=== PATIENT | female | born 1935 | race Caucasian/White ===

== ENCOUNTER 2020-11-22 19:18 | Inpatient (IN) | payer MEDICARE ==
[2020-11-22 19:51] LABS: #Lymphocytes 0.6 thou/uL (1.20-3.40); #Neutrophils 9.7 thou/uL (1.40-6.50); %Eosinophils 0.1 % (0.0-10.0); %Lymphocytes 5.5 % (21.0-51.0); %Monocytes 8.7 % (0.0-10.0); %Neutrophils 85.8 % (42.0-75.0); Hemoglobin 9.8 g/dL (12.0-16.0); Mean Corpuscular HGB CONC 30.9 g/dL (32.0-36.0); Mean Corpuscular Hemoglobin 29.7 pg (27.0-31.0); Mean Platelet Volume 7.3 fL (7.4-10.4); Platelet Count 229 thou/uL (130-400); RBC Distribution Width 14.9 % (11.5-14.5); Red Blood Cell (RBC) Count 3.31 mill/uL (4.20-5.40); White Blood Cell (WBC) Count 11.3 thou/uL (4.8-10.8)
[2020-11-22 20:03] LABS: Actual Bicarbonate (HCO3a) 33.2 mEq/L (22-28); Analyzer IN Cardio ER; Base Excess (BEa) 3.4 mEq/L (-2.0 to +3.0); Calcium, Ionized (arterial) 1.21 mmol/L (1.12-1.30); Carboxyhemoglobin (COHb) 0.4 gm% (0.0-3.0); Hemoglobin (Hb) 10.2 g/dL (12.0-16.0); O2 Tension (PaO2), arterial 90.4 mmHg (> 60.0); Potassium - ABG Lab 6.13 mmol/L (3.70-5.30)
[2020-11-22 20:05] LABS: Puncture Site LBA
--- NOTE | 2020-11-22 20:11 | RAD ---
PORTABLE CHEST: HISTORY: Unresponsive. COMPARISON: None. FINDINGS: Bilateral effusions, larger on the left. Minimal aerated lung in the left apical region. Shift of the mediastinum to the left. Some aerated lung in the right upper lobe. Heart is not adequately evaluate d due to the large left effusion. Dual-lead pacemaker. IMPRESSION: Bilateral effusions, larger on the left, with minimal aerated lung in the left apical region. A small amount of right upper lobe aeration. POS: AGW
[2020-11-22] MEDS ORDERED: Rocuronium Bromide 10 MG/ML (10ML VIAL) ONE (20:21)
[2020-11-22 20:39] LABS: ALT (SGPT) 15 U/L (8-55); AST (SGOT) 24 U/L (5-34); Albumin 3.6 g/dL (3.4-4.8); Alkaline Phosphatase 122 U/L (40-110); Anion Gap 16 mmol/L (10-20); BUN (Urea Nitrogen) 37 mg/dL (9.8-20.1); Bilirubin, Total 1.4 mg/dL (0.2-1.2); Calc. Creatinine Clearance 0 mL/min (70-130); Calcium 9.1 mg/dL (7.8-10.44); Carbon Dioxide 34 mmol/L (23-31); Chloride 87 mmol/L (98-107); Globulin 3.4 g/dL (2.4-3.5); Glucose 248 mg/dL (83-110); Sodium 130 mmol/L (136-145)
[2020-11-22 20:44] LABS: Potassium 6.7 mmol/L (3.5-5.1)
--- NOTE | 2020-11-22 20:55 | RAD ---
Chest one view HISTORY: Chest pain. Intubated. COMPARISON: Earlier exam on the same date. FINDINGS: Cardiac silhouette remains shifted leftward with near complete opacification left hemithora x. Right pleural fluid is unchanged. Tip of an endotracheal catheter projects over the thoracic inlet. Nasogastric tube descends to the ab domen. No evidence of pneumothorax. IMPRESSION : Endotracheal catheter and nasogastric tube are in good radiographic position. Significant atelectasis of the left lung, with slight leftward shift of the mediastinum. Large left a nd moderate right pleural effusions.
[2020-11-22 20:56] LABS: Actual Bicarbonate (HCO3a) 26.5 mEq/L (22-28); Analyzer IN Cardio ER; Base Excess (BEa) 1.9 mEq/L (-2.0 to +3.0); CO2 Tension 41.3 mmHg (35.0-45.0); Calcium, Ionized (arterial) 1.15 mmol/L (1.12-1.30); Carboxyhemoglobin (COHb) 0.5 gm% (0.0-3.0); Hemoglobin (Hb) 9.1 g/dL (12.0-16.0); Potassium - ABG Lab 5.43 mmol/L (3.70-5.30); pH, Arterial 7.43 (7.35-7.45)
[2020-11-22] MEDS ORDERED: Fentanyl CADD 100 ML IV SCH (21:00)
[2020-11-22 21:17] LABS: O2 Tension (PaO2), arterial 48.9 mmHg (> 60.0); Puncture Site RBA
[2020-11-22 21:18] LABS: ALV-art Gradient 255.975 mmHg (0-20)
[2020-11-22] MEDS ORDERED: Dextrose 50% Abboject 50 ML SYRINGE ONE (21:18)
[2020-11-22] MEDS ORDERED: Calcium Chloride 1 GM/10 ML Abboject SYRINGE ONE (21:18)
[2020-11-22] MEDS ORDERED: INSULIN REGULAR IN 0.9 % NACL 100 UNIT/100 ML BAG ONE (21:18)
[2020-11-22] MEDS ORDERED: Sodium Bicarb 50 MEQ/50 ML Abboject 8.4% SYRINGE ONE (21:18)
[2020-11-22] MEDS ORDERED: Insulin Regular 300 UNITS/3 ML VIAL ONE (21:43)
[2020-11-22] MEDS ORDERED: Vancomycin 1 GM/200 ML BAG ONE (22:05)
[2020-11-22] MEDS ORDERED: Cefepime 2 GM VIAL ONE (22:05)
[2020-11-22] MEDS ORDERED: Levofloxacin 500 mg/D5W 100 ml Premix Bag ONE (22:05)
[2020-11-22 22:19] LABS: Bacteria/HPF None Seen HPF (None Seen); Bilirubin Negative (Negative); Blood, Urine Negative (Negative); Clarity Turbid (Clear); Glucose, Urine (Dipstick) Normal (Negative); Ketone, Urine Negative (Negative); Leukocyte 75 Leu/uL (Negative); Nitrite Negative (Negative); Protein, Urine (Dipstick) 70 mg/dL (Neg-Trace); Specific Gravity, Urine 1.019 (1.002-1.036); Squamous Epithelial 0-3 HPF (0-3); Urobilinogen Normal mg/dL (Less than 2)
[2020-11-22 22:31] LABS: RBC/HPF 0-3 HPF (0-3); Yeast-Budding 1+ HPF (None Seen); Yeast-Hyphae None Seen HPF (None Seen)
[2020-11-22 22:46] LABS: SARS-CoV-2 NAA Rapid Test Not Detected (NotDetected)
--- NOTE | 2020-11-22 23:29 | PDOC.HHP ---
Hospitalist HPI Dyspnea History of Present Illness: This is an 85-year-old female patient with a history of CHF, hyperlipidemia, hypertension and A. fib with type 2 diabetes She was brought in from [place] rehab on account of acute respiratory distress. Apparently she was recently hospitalized for CHF and A. fib and was transitioned for rehab when the above event occurred. She was noted to be hypoxic requiring up to 15 L of oxygen. EMS was activated. On arrival she had a pressure of 105/79, respiratory 28, pulse 90 and saturating 95% on nonrebreather. Labs showed leukocytosis of 11.3 with hemoglobin 9.8. Potassium was 6.79 sodium 130. Creatinine was slightly elevated at 1.23. BNP was elevated at 1241. Chest x-ray showed bilateral pleural effusion with left significantly bigger than right. She was started on antibiotics with vancomycin Levaquin and cefepime. Also received 2 L normal saline and hyperkalemia protocol. Patient is mental status generally poor and with worsening respiratory distress decision was made to intubate in the ED. Hospitalist team was consulted for admission. Allergies/Adverse Reactions: Allergy/AdvReac Type Severity Reaction Status Date / Time metformin Allergy Verified 11/22/20 21:35 Home Medications: Medication Instructions Recorded Confirmed Type Atorvastatin Calcium [Lipitor] 40 mg PO DAILY 11/22/20 11/22/20 History Furosemide [Lasix] 20 mg PO DAILY 11/22/20 11/22/20 History Lactobacillus Rhamnosus GG 1 cap PO DAILY 11/22/20 11/22/20 History [Culturelle] Levothyroxine Sodium 75 mcg PO DAILY 11/22/20 11/22/20 History Lidocaine 5% Patch [Lidoderm 5% 1 patch TD DAILY 11/22/20 11/22/20 History Patch] Melatonin 5 mg PO HS 11/22/20 11/22/20 History Metoprolol Tartrate 50 mg PO BID 11/22/20 11/22/20 History Pantoprazole Sodium [Protonix] 40 mg PO DAILY 11/22/20 11/22/20 History Polyethylene Glycol 3350 [Miralax] 17 gm PO DAILY 11/22/20 11/22/20 History Potassium Chloride 10 meq PO DAILY 11/22/20 11/22/20 History Potassium Chloride 20 meq PO BID 11/22/20 11/22/20 History Rivaroxaban [Xarelto] 15 mg PO DAILY 11/22/20 11/22/20 History Past History: PMHx:CHF, hyperlipidemia, hypertension and A. fib with type 2 diabetes PSHx: No information available FHx: No information available Social: No information available Hospitalist HPI ROS ROS unobtainable: due to endotracheal tube Hospitalist Exam General Appearance: ill appearing General - other findings: Intubated, ENT: normocephalic atraumatic Neck: supple, symmetric, no JVD Heart: RRR, no murmur, no gallops, no rubs Respiratory - other findings: Reduced air entry bilaterally, Gastrointestinal: soft, non-tender, non-distended, normal bowel sounds Extremities: no cyanosis, no clubbing, no edema Neurological - other findings: Sedated, no spontaneous movements. Psychiatric - other findings: Unable to obtain Hospitalist Results Result Diagrams: 11/23/20 03:42 11/23/20 03:42 Lab results: Laboratory Last Values WBC 11.3 thou/uL (4.8-10.8) H 11/22/20 19:41 RBC 3.31 mill/uL (4.20-5.40) L 11/22/20 19:41 Hgb 9.8 g/dL (12.0-16.0) L 11/22/20 19:41 Hct 31.8 % (36.0-47.0) L 11/22/20 19:41 MCV 96.0 fL (78.0-98.0) 11/22/20 19:41 MCH 29.7 pg (27.0-31.0) 11/22/20 19:41 MCHC 30.9 g/dL (32.0-36.0) L 11/22/20 19:41 RDW 14.9 % (11.5-14.5) H 11/22/20 19:41 Plt Count 229 thou/uL (130-400) 11/22/20 19:41 MPV 7.3 fL (7.4-10.4) L 11/22/20 19:41 Neutrophils % 85.8 % (42.0-75.0) H 11/22/20 19:41 Lymphocytes % 5.5 % (21.0-51.0) L 11/22/20 19:41 Monocytes % 8.7 % (0.0-10.0) 11/22/20 19:41 Eosinophils % 0.1 % (0.0-10.0) 11/22/20 19:41 Basophils % 0.0 % (0.0-1.0) 11/22/20 19:41 Neutrophils # 9.7 thou/uL (1.40-6.50) H 11/22/20 19:41 Lymphocytes # 0.6 thou/uL (1.20-3.40) L 11/22/20 19:41 Monocytes # 1.0 thou/uL (0.11-0.59) H 11/22/20 19:41 Eosinophils # 0.0 thou/uL (0.0-0.7) 11/22/20 19:41 Basophils # 0.0 thou/uL (0.0-0.2) 11/22/20 19:41 Specimen Type ARTERIAL 11/22/20 20:50 Puncture Site RBA 11/22/20 20:50 Bicarbonate Actual 26.5 mEq/L (22-28) 11/22/20 20:50 ABG pH 7.43 (7.35-7.45) 11/22/20 20:50 ABG pCO2 41.3 mmHg (35.0-45.0) 11/22/20 20:50 ABG pO2 48.9 mmHg (> 60.0) L* 11/22/20 20:50 ABG O2 Sat (Measured) 88.3 % (94.0-98.0) L 11/22/20 20:50 ABG O2 Content 11.2 vol% (18.0-21.0) L 11/22/20 20:50 ABG Base Excess 1.9 mEq/L (-2.0 to +3.0) 11/22/20 20:50 ABG Hematocrit 27.0 % (36.0-47.0) L 11/22/20 20:50 ABG Hemoglobin 9.1 g/dL (12.0-16.0) L 11/22/20 20:50 ABG Oxyhemoglobin 87.2 % (94.0-98.0) L 11/22/20 20:50 ABG Carboxyhemoglobin 0.5 gm% (0.0-3.0) 11/22/20 20:50 ABG Methemoglobin 0.70 gm% (0.04-1.52) 11/22/20 20:50 ABG Deoxyhemoglobin 11.6 % (0.0-2.9) H 11/22/20 20:50 Arnav Test Not Reportable 11/22/20 20:50 A-a O2 Gradient 255.975 mmHg (0-20) H 11/22/20 20:50 Sodium 129 mmol/L (135-148) L 11/22/20 20:50 Potassium 5.43 mmol/L (3.70-5.30) H 11/22/20 20:50 Chloride 93 mmol/L (98-106) L 11/22/20 20:50 Ionized Calcium 1.15 mmol/L (1.12-1.30) 11/22/20 20:50 Mode of Support SIMV 11/22/20 20:50 Mechanical Rate 20 min 11/22/20 20:50 Inspired O2 50 % 11/22/20 20:50 Tidal Volume 450 ml 11/22/20 20:50 Pressure Support 10 cmH2O 11/22/20 20:50 PEEP or CPAP 5.0 cmH2O 11/22/20 20:50 Sodium 130 mmol/L (136-145) L 11/22/20 19:41 Potassium 6.7 mmol/L (3.5-5.1) H* 11/22/20 19:41 Chloride 87 mmol/L (98-107) L 11/22/20 19:41 Carbon Dioxide 34 mmol/L (23-31) H 11/22/20 19:41 Anion Gap 16 mmol/L (10-20) 11/22/20 19:41 BUN 37 mg/dL (9.8-20.1) H 11/22/20 19:41 Creatinine 1.23 mg/dL (0.6-1.1) H 11/22/20 19:41 Estimated GFR (MDRD) 41 11/22/20 19:41 Glucose 248 mg/dL (83-110) H 11/22/20 19:41 Calcium 9.1 mg/dL (7.8-10.44) 11/22/20 19:41 Total Bilirubin 1.4 mg/dL (0.2-1.2) H 11/22/20 19:41 AST 24 U/L (5-34) 11/22/20 19:41 ALT 15 U/L (8-55) 11/22/20 19:41 Alkaline Phosphatase 122 U/L (40-110) H 11/22/20 19:41 Troponin I 0.023 ng/mL (< 0.028) 11/22/20 19:41 B-Natriuretic Peptide 1241.5 pg/mL (0-100) H 11/22/20 19:41 Serum Total Protein 7.0 g/dL (5.8-8.1) 11/22/20 19:41 Albumin 3.6 g/dL (3.4-4.8) 11/22/20 19:41 Globulin 3.4 g/dL (2.4-3.5) 11/22/20 19: Albumin/Globulin Ratio 1.1 g/dL (1.2-2.2) L 11/22/20 19:41 Urine Color Yellow (Yellow) 11/22/20 21: Urine Clarity Turbid (Clear) A 11/22/20 21: Urine pH 5.0 (5.0-9.0) 11/22/20 21: Ur Specific [place] 1.019 (1.002-1.036) 11/22/20 21: Urine Protein 70 mg/dL (Neg-Trace) A 11/22/20 21: Urine Glucose (UA) Normal mg/dL (Negative) 11/22/20 21: Urine Ketones Negative mg/dL (Negative) 11/22/20 21: Urine Blood Negative (Negative) 11/22/20 21: Urine Nitrite Negative (Negative) 11/22/20 21: Urine Bilirubin Negative (Negative) 11/22/20 21: Urine Urobilinogen Normal mg/dL (Less than 2) 11/22/20 21:07 Ur Leukocyte Esterase 75 Adan/uL (Negative) A 11/22/20 21: Urine RBC 0-3 HPF (0-3) 11/22/20 21:07 Urine WBC 11-20 HPF (0-3) A 11/22/20 21:07 Ur Squamous Epith Cells 0-3 HPF (0-3) 11/22/20 21:07 Urine Bacteria None Seen HPF (None Seen) 11/22/20 21: Ur Yeast w Hyphae None Seen HPF (None Seen) 11/22/20 21:07 Urine Yeast (Budding) 1+ HPF (None Seen) A 11/22/20 21:07 SARS-CoV-2 Rap RNA(RT-PCR) Not Detected (NotDetected) 11/22/20 21:15 Hospitalist H&P A/P Plan: This is an 85-year-old male patient with a history of CHF, A. fib and diabetes mellitus who was brought in from [place] on account of acute respiratory distress. She has bilateral pulmonary effusion and the heart to be intubated for deteriorating mental status and respiratory state. Acute hypoxic respiratory failure. Likely due to pneumonia/pleural effusion/heart failure Currently intubated Monitor in CCU Pulmonary consult in a.m. Sepsis leukocytosis, AMS Source likely Pneumonia Start on antibiotic Vanco and Zosyn check lactate and trend Continue on ventilator support. -Acute encephalopathy likey due to sepsis and hypoxia Acute heart failure exacerbation Patient with heart failure with elevated BNP We will diurese Echocardiogram in a.m. Diabetes mellitus Correctional insulin Monitor glucose Hyperkalemia Potassium 6.7 unclear etiology Received hyperkalemic protocol We will monitor BMP Nephrology consult DEMETRA Slight increase in creatinine 1.4 Received hydration Monitor BMP Hyponatremia Possibly due to CHF exacerbation Diuresis Monitor. -General poor prognosis Consider paliative care consilt for goal of care discussion CODE STATUSfull code VT prophylaxisLovenox
[2020-11-23] MEDS ORDERED: Vancomycin 1 GM in Premix Bag 1 BAG IVPB SCH ×2 (00:01→20:00)
[2020-11-23 00:33] LABS: Anion Gap 14 mmol/L (10-20); BUN (Urea Nitrogen) 38 mg/dL (9.8-20.1); Calc. Creatinine Clearance 43 mL/min (70-130); Calcium 9.3 mg/dL (7.8-10.44); Carbon Dioxide 33 mmol/L (23-31); Chloride 89 mmol/L (98-107); Glucose 259 mg/dL (83-110); Potassium 5.9 mmol/L (3.5-5.1); Sodium 130 mmol/L (136-145)
[2020-11-23] MEDS ORDERED: Furosemide 40 MG/4 ML VIAL SLOW IVP SCH (01:00)
[2020-11-23] MEDS ORDERED: Fentanyl BOLUS 250 ML IVPB PRN (01:15)
[2020-11-23] MEDS ORDERED: Morphine 2 MG/ML VIAL SLOW IVP PRN (01:15)
[2020-11-23] MEDS ORDERED: DISCONTINUE PREVIOUS NARCOTIC PAIN MEDICATIONS AND BENZODIAZEPINES FS SCH (01:15)
[2020-11-23] MEDS ORDERED: Propofol 1,000 MG/100 ML VIAL IV PRN (01:15)
[2020-11-23] MEDS ORDERED: Propofol BOLUS 1,000 MG/100 ML VIAL IV PRN (01:15)
[2020-11-23 04:21] LABS: Anion Gap 11 mmol/L (10-20); BUN (Urea Nitrogen) 39 mg/dL (9.8-20.1); Calc. Creatinine Clearance 42 mL/min (70-130); Calcium 8.9 mg/dL (7.8-10.44); Carbon Dioxide 35 mmol/L (23-31); Chloride 90 mmol/L (98-107); Glucose 234 mg/dL (83-110); Potassium 4.9 mmol/L (3.5-5.1); Sodium 131 mmol/L (136-145)
[2020-11-23 04:46] LABS: Band 14 % (5-11); Eosinophils 1 % (0-10); Lymphocytes 5 % (21-51); MDiff Complete? YES; Mean Corpuscular HGB CONC 31.4 g/dL (32.0-36.0); Mean Corpuscular Hemoglobin 29.6 pg (27.0-31.0); Mean Corpuscular Volume 94.2 fL (78.0-98.0); Mean Platelet Volume 7.8 fL (7.4-10.4); Neutrophil 80 % (42-75); Platelet Count 190 thou/uL (130-400); RBC Distribution Width 14.9 % (11.5-14.5); Red Blood Cell (RBC) Count 3.05 mill/uL (4.20-5.40); White Blood Cell (WBC) Count 16.5 thou/uL (4.8-10.8)
[2020-11-23] MEDS: Piperacillin/Tazobactam 4.5 GM in Sodium Chloride 0.9% 100 ML IVPB SCH ×3 (05:58→21:09)
[2020-11-23] MEDS: Norepinephrine 8 MG/0.9% NS 250 ML IVPB SCH ×3 (05:59→22:10)
[2020-11-23] MEDS ORDERED: Levothyroxine Sodium 75 MCG TAB PER TUBE SCH (08:15)
--- NOTE | 2020-11-23 08:29 | CT ---
PRELIMINARY REPORT/[facility]/EMERGENCY AFTER HOURS PROCEDURE: EXAM: CT Chest with Intravenous Contrast. CLINICAL HISTORY: CHF TECHNIQUE: Axial computed tomography images of the chest with intravenous contrast. CONTRAST: With; ISOVUE 370,70mL COMPARISON: None provided. FINDINGS: LUNGS: Patient is intubated with the distal portion of the endotracheal tube terminating 5.3 cm above the ca binh. Prominent compressive atelectasis of the right lung with air bronchograms, involving the entir ety of the right lower lobe, proximal 50% of the right middle lobe, and posterior segment of the righ t upper lobe secondary to large effusion. Mild compressive atelectasis in the left lower lobe second maximiliano to effusion.ill-defined airspace opacities adjacent to the atelectasis in the left lower lobe and to a lesser extent nodular ground glass opacities scattered throughout the left upper lobe and to le sser extent the right upper lobe, slightly obscured by motion artifact. PLEURAL SPACES: Bilateral pleural effusions, larger on the right and small on the left. No pleural enhancement. No p neumothorax. HEART AND MEDIASTINUM: Generalized cardiomegaly with left ventricular dilation. Dual-lead ICD with leads terminating in the right atrium and right ventricle. Prominent calcifications around the aortic and mitral valve annul us. Moderate to severe three-vessel coronary artery calcifications. No significant pericardial effu westley. An enteric tube transits the esophagus and extends into the stomach, with the distal portion ou tside the [id number]. LYMPH NODES: No lymphadenopathy. BONES: No focal osseous abnormality or acute fracture. Age-appropriate degenerative changes in the spine. G eneralized osteopenia. CHEST WALL AND UPPER ABDOMEN: Mild intra-abdominal ascites. The visualized portions of the upper abdominal organs are unremarkable . Generalized soft tissue anasarca. multiple small foci of gas within the right axillary/subclavian v essels is likely iatrogenic. Multiple surgical clips partially imaged in the right supraclavicular r egion. The visualized portions of the thyroid gland is diffusely enlarged and heterogeneous scattere d sub centimeter nodules. IMPRESSION: 1. Bilateral pleural effusions with associated compressive atelectasis, large on the right and small on the left. 2. Scattered multifocal ground glass nodular opacities in the remaining aerated lung. Differential includes atypical bacterial or viral infection versus developing alveolar flooding related to CHF. 3. Cardiomegaly. 4. Mild intra-abdominal ascites and diffuse soft tissue anasarca, incompletely evaluated. 5. Enlarged multinodular thyroid. ELECTRONICALLY SIGNED BY: Weston Khoury DO Nov 23, 2020 4:38:21 AM [employer] This report is intended for review by the ordering physician only, in accordance of law. If you recei ve this report in error, please call [facility] at [phone]. FINAL REPORT EMERGENCY AFTER HOURS CT CHEST WITH IV CONTRAST: IMPRESSION: I agree with the preliminary interpretation given by [facility], with the following modificatio n: Consolidation involving the right lower lobe, right middle lobe, and right upper lobe demonstrates a hypodense appearance suggesting pneumonia rather than purely passive atelectasis. POS: MIKAEL
--- NOTE | 2020-11-23 08:32 | PDOC.CNTRL ---
Central Line Procedure Note - Procedure Date: 11/23/20 Time: 08:30 - PreProcedure Diagnosis: 1) Hypotension, 2) Need for centrally administered drugs - PostProcedure Diagnosis: same as above - Anesthesia Anesthesia: 1% Lidocaine without epinephrine - Description Focused site: femoral vein: Right Ultrasound guidance: Yes Patient tolerated procedure: well Procedure in Details: Consent was obtained via telephone from [facility] prior to procedure. Sterile technique was observed. Right femoral area was scrubbed. Patient was prepped and draped in usual sterile fashion. Right femoral artery was palpated. Lidocaine was used to anesthetize medial to the femoral pulse. Two attempts were made to catheterize medial to pulse into the femoral vein. This was unsuccessful. Right femoral vein was then visualized using ultrasound and easily entered with needle. Guidewire passed easily. Skin was nicked; dilator was passed over guidewire and used to dilate. Pre-flushed triple lumen catheter was then placed over guidewire. Each port withdrew blood and was easily flushed. Catheter was hubbed and sutured in place. Blood loss appox [address] Chirinos was present and attended the procedure.
--- NOTE | 2020-11-23 08:42 | OP ---
DATE OF PROCEDURE: 11/23/2020 PROCEDURE: Bronchoscopy. PREOPERATIVE DIAGNOSIS: Left lung atelectasis. POSTOP DIAGNOSIS: Resolved left lung atelectasis. ANESTHESIA: None except she was currently on propofol. DESCRIPTION OF PROCEDURE: A 2.6 Ambu bronchoscope was placed down the patient's 7.5 endotracheal tube to an adaptor while the patient was on volume-cycled ventilation. Her previous x-ray had demonstrated left lung atelectasis; however, this had resolved on the CT. I wanted to make sure that there was no permanent endobronchial obstruction. The scope was passed into the endotracheal tube. The kar was sharp. Left mainstem bronchus was without mucus plugging. The left lower lobe was normal. Left upper lobe was stenotic. I could not get the scope very far into that segment, so I cannot tell if there was any true endobronchial obstruction there or not. Right-sided airways and the right mainstem bronchus were normal. She tolerated the procedure well. Job ID: [id number]
--- NOTE | 2020-11-23 08:47 | CON ---
DATE OF CONSULTATION: 11/23/2020 I spent 45 minutes of critical time. REASON FOR CONSULTATION: Acute hypoxic respiratory failure. HISTORY OF THE PRESENT ILLNESS: Mrs. Nataliia Friedman is an 85-year-old female who recently was hospitalized at [facility] with congestive heart failure. I do not have any records from that hospitalization. She was subsequently sent to [facility] where she has been for the last one week. She was calling her daughter almost continuously over the last 24 hours, stating that she was short of breath. The daughter could not get the rehab to act and called 911 on the patient's behalf, and the patient was subsequently transported over here. Her initial chest x-ray showed whiteout of the left chest. I am not sure what the events were, that led to intubation, but the patient was intubated in the ER and placed on mechanical ventilation. After intubation, she continued to have whiteout of the left chest. I was called in the middle of the night to come up and tap a huge effusion on the left. When I saw her x-ray at home, I was suspicious that this was an atelectatic left lung and not a big effusion. A CT scan was subsequently performed, and it showed resolution of the whiteout in the left lung, indicating that the patient probably had a mucus plug, and this was dislodged after intubation or perhaps with suctioning after intubation. The patient's daughter tells me that the patient has congestive heart failure. She has no previous lung problems that she knows of and is a lifetime nonsmoker. PAST MEDICAL HISTORY: 1. Congestive heart failure. 2. Hyperlipidemia. 3. Hypertension. 4. Atrial fibrillation. 5. Type 2 diabetes mellitus. 6. History of a right renal mass. 7. History of a cold thyroid nodule. 8. History of tachy-jimmy syndrome. ALLERGIES: METFORMIN. PAST SURGICAL HISTORY: She has had a pacemaker placed. I am not sure of any other surgeries. MEDICATIONS: Prior to admission, 1. Lipitor. 2. Lasix. 3. Lactobacillus. 4. Levothyroxine. 5. Lidoderm patch. 6. Melatonin. 7. Metoprolol. 8. Pantoprazole. 9. Polyethylene glycol. 10. Potassium chloride. 11. Xarelto. SOCIAL HISTORY: Nonsmoker. Does not consume alcohol. REVIEW OF SYSTEMS: Cannot be obtained as the patient is currently on mechanical ventilation. PHYSICAL EXAMINATION: VITAL SIGNS: Heart rate 109, blood pressure 94/42, O2 saturation 93%. Temperature 99.3. GENERAL: She will awaken easily and does not appear to be in any overt distress. She is currently on mechanical ventilation. HEENT: Pupils are reactive. Sclerae anicteric. Oropharynx intubated. NECK: No adenopathy or JVD. LUNGS: She has clear breath sounds bilaterally, but the sounds are slightly diminished in the right base compared to left. CARDIOVASCULAR: S1 and S2. Irregularly irregular. No pacer spikes are present at the current time. ABDOMEN: Slightly distended but bowel sounds are present. EXTREMITIES: No clubbing, cyanosis, or edema. LABORATORY DATA: White blood cell count 16.5, hematocrit 28.7, and platelet count 190, pH 7.43, pCO2 of 41, PO2 of 48. This was just after intubation. Sodium 131, potassium 4.9, chloride 90, CO2 of 35, BUN 39, creatinine 1.0, and glucose 234. X-ray findings are as described above. Her BNP level was 1241. ASSESSMENT: 1. The patient had probably decompensated at rehab due to left lung atelectasis, which is now resolved. 2. Acute hypoxic respiratory failure, requiring mechanical ventilation. 3. History of underlying congestive heart failure, which is probably not decompensated. RECOMMENDATION: 1. Bronchoscopy was performed - see operative note. 2. Central line for vasopressor administration. 3. Probably need some volume given back - we will do this in the form albumin. 4. We will recheck her blood gas. 5. Agree with empiric antibiotics, but would discontinue if cultures are sterile. Job ID: [id number]
[2020-11-23] MEDS ORDERED: Enoxaparin Sodium 40 MG/0.4 ML SYRINGE SC SCH ×2 (09:00→21:00)
[2020-11-23 10:58] LABS: Lactic Acid 5.9 mmol/L (0.5-2.2)
[2020-11-23] MEDS ORDERED: Electrolyte Replacement Protocol 1 EACH IVPB ONE (11:41)
[2020-11-23] MEDS ORDERED: Bisacodyl 10 MG SUPP PR PRN (11:41)
[2020-11-23] MEDS ORDERED: Milk Of Magnesia 30 ML UDCUP PO PRN (11:41)
[2020-11-23] MEDS ORDERED: Acetaminophen 650 MG Suppository PR PRN (11:49)
[2020-11-23] MEDS ORDERED: Acetaminophen 650 MG/20.3 ML UDCUP PO PRN (11:50)
[2020-11-23] MEDS ORDERED: Electrolyte Replacement Protocol FS PRN (12:00)
[2020-11-23 13:54] LABS: Actual Bicarbonate (HCO3a) 31.9 mEq/L (22-28); Base Excess (BEa) 9.5 mEq/L (-2.0 to +3.0); CO2 Tension 34.6 mmHg (35.0-45.0); Calcium, Ionized (arterial) 1.16 mmol/L (1.12-1.30); Carboxyhemoglobin (COHb) 0.4 gm% (0.0-3.0); Hemoglobin (Hb) 9.8 g/dL (12.0-16.0); O2 Tension (PaO2), arterial 66.3 mmHg (> 60.0); Potassium - ABG Lab 4.94 mmol/L (3.70-5.30)
[2020-11-23 13:59] LABS: pH, Arterial 7.58 (7.35-7.45)
[2020-11-23 14:00] LABS: Puncture Site RBA
[2020-11-23] MEDS ORDERED: Dextrose 5% in Water 1,000 ML IV PRN (14:35)
[2020-11-23] MEDS ORDERED: Dextrose 50% Abboject 50 ML SYRINGE SLOW IVP PRN (14:35)
[2020-11-23] MEDS ORDERED: Sodium Chloride 0.9% 1,000 ML IV SCH ×2 (14:45→19:24)
[2020-11-23] MEDS ORDERED: Pantoprazole 40 MG VIAL IVP SCH (14:45)
[2020-11-23 16:32] LABS: Lactic Acid 2.6 mmol/L (0.5-2.2)
[2020-11-23 16:37] LABS: Anion Gap 15 mmol/L (10-20); BUN (Urea Nitrogen) 43 mg/dL (9.8-20.1); Calc. Creatinine Clearance 35 mL/min (70-130); Calcium 8.9 mg/dL (7.8-10.44); Carbon Dioxide 31 mmol/L (23-31); Chloride 91 mmol/L (98-107); Glucose 130 mg/dL (83-110); Potassium 5.1 mmol/L (3.5-5.1); Sodium 132 mmol/L (136-145)
--- NOTE | 2020-11-23 17:19 | CON ---
DATE OF CONSULTATION: 11/23/2020 REASON FOR CONSULTATION: AFib with RVR. HISTORY OF PRESENT ILLNESS: Ms. Nataliia Friedman is a pleasant 85-year-old white female, who comes to the hospital for respiratory insufficiency. She was recently admitted to [facility] for what appeared to be COPD and some level of heart failure and was sent to the rehab facility at [place]. Eventually, her shortness of breath became severe, so 911 was called and she was brought in emergently. Apparently, intubated in the ER as apparently she was severely hypoxic. It is unclear at this point she did have what appeared to be a whiteout left lung and is thought that this was related to a mucus plug, as her x-ray improved after intubation, probably moved the mucus plug. Cardiology is being consulted as she is in AFib with RVR. Talking with her daughter who was in the room at the time of my evaluation, she tells me that she has chronic atrial fibrillation and is on chronic anticoagulation with Dr. Escamilla at [facility]. PAST MEDICAL HISTORY: 1. History of heart failure, apparently diastolic heart failure. 2. Hyperlipidemia. 3. Hypertension. 4. Chronic atrial fibrillation. 5. Type 2 diabetes. 6. Right renal mass. 7. Cold thyroid nodule. 8. 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 SURGICAL HISTORY: 1. Pacemaker placed. 2. Bronchoscopy earlier today. OUTPATIENT MEDICATIONS: 1. Xarelto 50 mg a day. 2. Potassium chloride. 3. Protonix 40 mg a day. 4. MiraLAX p.r.n. 5. Metoprolol 50 mg b.i.d. 6. Melatonin. 7. Lidocaine patch. 8. Levothyroxine 75 mcg a day. 9. Lactobacillus p.r.n. 10. Furosemide 20 mg a day. 11. Atorvastatin 40 mg a day. ALLERGIES: METFORMIN. SOCIAL HISTORY: No alcohol, tobacco, or drugs per chart review. REVIEW OF SYSTEMS: Unobtainable as the patient is sedated and intubated. FAMILY HISTORY: Noncontributory. PHYSICAL EXAMINATION: VITAL SIGNS: Temperature 99.7, pulse 120, respiratory rate 18, saturating 100% on 40% FiO2, blood pressure 122/66. GENERAL: Sedated, intubated. NECK: Supple. LUNGS: Bilateral breath sounds are equal. CARDIOVASCULAR: S1 and S2. Irregularly irregular heart rate in the 110s. There is a grade 2/6 systolic murmur at the left 4th intercostal space. ABDOMEN: Soft. EXTREMITIES: No edema. SKIN: Warm and dry. LABORATORY DATA: Laboratory work was reviewed. White count on admission 11, up to 16 now; hemoglobin 9.8 down to 9.0; platelet count of 229. Chemistries were reviewed. Lactic acid was high at 6.0 on admission, down to 2.6 now. Creatinine increased to 1.25 from 1.0, but GFR remains about 41. UA was reviewed. COVID PCR was negative. IMAGING STUDIES: X-rays were reviewed. Echocardiogram was reviewed, showed an EF of 65% to 70% in AFib with a moderate-sized pericardial effusion, but no tamponade. RVSP was 46 mmHg. ASSESSMENT: 1. Chronic atrial fibrillation currently in rapid ventricular response. 2. Hypotension, resolved after fluid resuscitation and on Levophed, which is being weaned off. 3. Acute hypoxic respiratory insufficiency, likely related to mucus plug and atelectatic lung, improved now. 4. Most likely pulmonary hypertension as her right-sided chambers are enlarged. PLAN: 1. We will try to slow her down some with IV amiodarone. At this time, we cannot use diltiazem or beta-jose given her borderline blood pressure. She has chronic AFib and most likely her AFib is going to calm down once she is extubated and Levophed is off. 2. Continue full anticoagulation with either the Xarelto or full dose Lovenox. Thank you for letting us to participate in the care of your patient. We will follow. Job ID: [id number]
--- NOTE | 2020-11-23 17:23 | RAD ---
KUB: DATE: 11/23/2020. PROVIDED CLINICAL HISTORY: Abdominal distention. FINDINGS: There is prominent gaseous distention of colon, particularly the cecum. The supine nature of the exa mination is not sensitive for the detection of pneumoperitoneum. There is no small bowel dilatation evident. Right femoral and urinary bladder catheters are seen. There is increased density overlying the left mid abdomen that may reflect calcification related to the urinary tract or bowel. The osse ous structures demonstrate no acute findings. IMPRESSION: Nonspecific gaseous distention of colon. If there is concern for obstruction, consider CT. POS: MIKAEL
[2020-11-23 17:38] LABS: Phosphorus 1.1 mg/dL (2.3-4.7)
[2020-11-23] MEDS: Amiodarone 450 MG, Admixture Fee 1 EACH in Dextrose 5% in Water 250 ML IVPB SCH (18:04)
[2020-11-23] MEDS ORDERED: Acetaminophen 325 MG/10.15 ML UDCUP PO PRN (18:10)
[2020-11-23] MEDS ORDERED: Sodium Phosphate 30 MMOL in Sodium Chloride 0.9% 250 ML 250 ML IVPB SCH (18:15)
--- NOTE | 2020-11-23 19:13 | PDOC.HOSPP ---
- Subjective Encounter Date: 11/23/20 Encounter Time: 14:00 non-verbal Subjective: Patient seen and examined for encephalopathy/respiratory failure. Events noted. Family at the bedside. - Objective Vital Signs & Weight: Vital Signs (12 hours) Pulse Resp BP Pulse Ox 11/23/20 18:37 128 H 113/57 L 11/23/20 16:00 18 11/23/20 14:00 119 H 20 11/23/20 12:00 18 11/23/20 11:30 101 H 11/23/20 10:00 20 11/23/20 08:00 18 95 11/23/20 07:30 100 Weight Admit Weight 149 lb Weight 149 lb 7.574 oz Most Recent Monitor Data Heart Rate from ECG 122 NIBP 115/46 NIBP BP-Mean 69 Respiration from ECG 21 SpO2 100 I&O: 11/22/20 11/23/20 11/24/20 06:59 06:59 06:59 Intake Total 346 1145.9 Output Total 205 933 Balance 141 212.9 Result Diagrams: 11/23/20 03:42 11/23/20 16:06 Additional Labs: Accuchecks 11/23/20 16:01 POC Glucose 146 H Vent - Assess Status Start: 11/22/20 22:53 Freq: Q2HR Status: Active Protocol: Document 11/23/20 16:00 KD (Rec: 11/23/20 16:26 KD [id number]) Ventilator Status/Info Patient/Vent Settings Endotracheal Tube Insertion Site Oral Endotracheal ETT Position (cm) 23 Trach Cuff Inflated Yes Ventilator Mode SIMV FIO2 80 Vent TV Set 400 Delivered TV 425 Patient TV (Spontaneous) Vent RR 18 Patient RR (12-20) 18 Peak Pressure (cmH2O) 27 PEEP (cm H2O) 12 PSV 10 Sedation (RASS) Arango Agitation-Sedation Scale (RASS): +4 = Combative: Combative, violent, immediate danger to staff +3 = Very agitated: Pulls to remove tubes or catheter; aggressive +2 = Agitated: Frequent non-purposeful movement, fights ventilator +1 = Restless: Anxious, apprehensive, movements not aggressive 0 = Alert and Calm: Spontaneously pays attention to caregiver -1 = Drowsy: Not fully alert, but has sustained awakening to voice -2 = Light sedation: Briefly awakens to voice (eyes contact < 10 secs) -3 = Moderate sedation: Movement or eye opening to voice (no eye contact) -4 = Deep sedation: No response to voice, but movement or eye opening to physical stimulation -5 = Unarousable: No response to voice or physical stimulation Sedation Yes Sedation Type fentanyl at 50 mcg/hr RASS Goal Score -1 RASS Actual Score [-1] Drowsy Intervention to attain goal Comfort Care Call Whitehead Within Reach Oral Care Clorhexidine Oral Rinse HOB Angle (degrees) 30 Patient Turned Midline *If no, document why not Abnormal Lab Results - Last 48 hrs 11/22/20 19:41: Sodium 130 L, Potassium 6.7 H*, Chloride 87 L, Carbon Dioxide 34 H, BUN 37 H, Creatinine 1.23 H, Total Bilirubin 1.4 H, Alkaline Phosphatase 122 H, Albumin/Globulin Ratio 1.1 L 11/22/20 19:41: WBC 11.3 H, RBC 3.31 L, Hgb 9.8 L, Hct 31.8 L, MCHC 30.9 L, RDW 14.9 H, MPV 7.3 L, Neutrophils % 85.8 H, Lymphocytes % 5.5 L, Neutrophils # 9.7 H, Lymphocytes # 0.6 L, Monocytes # 1.0 H 11/22/20 19:41: B-Natriuretic Peptide 1241.5 H 11/22/20 20:00: Bicarbonate Actual 33.2 H, ABG pH 7.20 L*, ABG pCO2 87.0 H*, ABG pO2 90.4 H, ABG O2 Content 13.8 L, ABG Base Excess 3.4 H, ABG Hematocrit 30.0 L, ABG Hemoglobin 10.2 L, ABG Deoxyhemoglobin 3.8 H, A-a O2 Gradient 513.850 H, Sodium 128 L, Potassium 6.13 H, Chloride 90 L 11/22/20 20:50: ABG pO2 48.9 L*, ABG O2 Sat (Measured) 88.3 L, ABG O2 Content 11.2 L, ABG Hematocrit 27.0 L, ABG Hemoglobin 9.1 L, ABG Oxyhemoglobin 87.2 L, A BG Deoxyhemoglobin 11.6 H, A-a O2 Gradient 255.975 H, Sodium 129 L, Potassium 5.43 H, Chloride 93 L 11/22/20 21:07: Urine Clarity Turbid A, Urine Protein 70 A, Ur Leukocyte Es terase 75 A, Urine WBC 11-20 A, Urine Yeast (Budding) 1+ A 11/22/20 23:44: Sodium 130 L, Potassium 5.9 H, Chloride 89 L, Carbon Dioxide 33 H, BUN 38 H 11/23/20 03:42: Sodium 131 L, Chloride 90 L, Carbon Dioxide 35 H, BUN 39 H 11/23/20 03:42: WBC 16.5 H, RBC 3.05 L, Hgb 9.0 L, Hct 28.7 L, MCHC 31.4 L, RDW 14.9 H, Neutrophils % (Manual) 80 H, Band Neuts % (Manual) 14 H, Lymphocytes % (Manual) 5 L 11/23/20 07:39: Lactic Acid 6.0 H* 11/23/20 10:25: Lactic Acid 5.9 H* 11/23/20 13:55: Bicarbonate Actual 31.9 H, ABG pH 7.58 H*, ABG pCO2 34.6 L, ABG pO2 66.3 H, ABG O2 Content 13.2 L, ABG Base Excess 9.5 H, ABG Hematocrit 29.0 L, ABG Hemoglobin 9.8 L, ABG Deoxyhemoglobin 4.0 H, A-a O2 Gradient 460.850 H, Sodium 127 L, Chloride 92 L 11/23/20 16:06: Sodium 132 L, Chloride 91 L, BUN 43 H, Creatinine 1.25 H, Phosphorus 1.1 L 11/23/20 16:06: Lactic Acid 2.6 H Microbiology - Entire Visit 11/22/20 21:07 Urine mercado catheter Urine Culture - Preliminary Radiology Reviewed by me: Yes (Chest x-ray/CTbilateral effusion with left lung whiteout) EKG Reviewed by me: Yes (Abdirashid kwan on telemetry) Hospitalist ROS - Review of Systems ROS unobtainable: due to mental status - Medication Medications: Active Medications Generic Name Dose Route Start Last Admin Trade Name Freq PRN Reason Stop Dose Admin Piperacillin Sod/Tazobactam 100 mls @ 200 mls/hr 11/23/20 06:00 11/23/20 14:18 Sod 4.5 gm/ Sodium Chloride IVPB 100 mls Q8HR FRANCHESKA Administration Norepinephrine Bitartrate 250 mls @ 0 mls/hr 11/23/20 06:00 11/23/20 15:37 Levophed IVPB 250 mls INF FRANCHESKA Administration Protocol Titrate Sodium Chloride 1,000 mls @ 50 mls/hr 11/23/20 14:45 11/23/20 15:07 Normal Saline 0.9% IV 1,000 mls .Q20H FRANCHESKA Administration Amiodarone HCl 450 mg/ 259 mls @ 0 mls/hr 11/23/20 17:15 11/23/20 18:04 Miscellaneous Medication 1 IVPB 259 mls each/ Dextrose/Water INF FRANCHESKA Administration Protocol As Directed Propofol 1,000 mg 11/23/20 01:15 11/23/20 02:22 Propofol 1,000 Mg/100 Ml Vial IV 12/23/20 01:15 1,000 mg INF PRN Administration TO ACHIEVE GOAL RASS Protocol Sodium Chloride 10 ml 11/23/20 09:00 11/23/20 09:20 Flush - Normal Saline 10 Ml Syringe IVF 10 ml Q12HR FRANCHESKA Administration Hospitalist Exam Vitals: Vital Signs (12 hours) Pulse Resp BP Pulse Ox 11/23/20 18:37 128 H 113/57 L 11/23/20 16:00 18 11/23/20 14:00 119 H 20 11/23/20 12:00 18 11/23/20 11:30 101 H 11/23/20 10:00 20 11/23/20 08:00 18 95 11/23/20 07:30 100 Weight Admit Weight 149 lb Weight 149 lb 7.574 oz Most Recent Monitor Data Heart Rate from ECG 122 NIBP 115/46 NIBP BP-Mean 69 Respiration from ECG 21 SpO2 100 General Appearance: ill appearing General - other findings: On mechanical ventilation Heart: no gallops, no rubs, irregular, diminshed peripheral pulses Respiratory: no wheezes, rales, rhonchi Respiratory - other findings: Diminished air entry at bases, endotracheal tube Gastrointestinal: soft, no guarding, no rigidity, distended, diminished bowl sounds Extremities: no cyanosis, no clubbing Neurological - other findings: Neuro/psychexam limited due to current mentation Hosp A/P - Plan plan discussed w/ family, mercado catheter, DVT proph w/lovenox, DVT proph w/SCDs 85-year-old female with recent hospitalization at [facility] for heart failure as well as ESBL UTI was brought in from [facility] with respiratory failure along with encephalopathy. Acute hypoxic/hypercapnic respiratory failure requiring mechanical ventilation with severe metabolic acidosis/lactic acidosis/left lung atelectasis Status post bronchoscopy. Continue ventilator management per critical care. Ventilation sedation protocol. Monitor lactic acid level Severe sepsis/septic shock on pressors Etiology unclear. Continue broad-spectrum antibiotics. Wean pressors as tolerated. Add gentle IV hydration. Patient has central line in place ?Acute on chronic diastolic heart failure exacerbation with atrial fibrillation with rapid ventricular response. Consult cardiology. Unable to give beta-blockers due to blood pressure on the lower side. Patient normally takes Xarelto. We will start her on Lovenox 60 mg twice daily Worsening abdominal distention with concern for for bowel obstruction Continue OG tube suctioning. KUB was obtained that showed colonic distention with possible obstruction. There is a concern for bowel ischemia due to persistent lactic acidosis. Will obtain GI input and recheck KUB in a.m. Will replace electrolytes. Check stool for C. difficile due to recent antibiotic use. Multiple electrolyte abnormalityhyponatremia/hyperkalemia/hypophosphatemia We will replace phosphorus Hyperlipidemia We will start statins when tolerating p.o. Recent UTIcompleted 7 days of antibiotics Hypertension Patient is currently hypotensive on pressors Diabetes mellitus type 2 Start sliding scale Sick sinus syndrome Patient has a pacemaker in place
[2020-11-23] MEDS ORDERED: Enoxaparin Sodium 80 MG/0.8 ML SYRINGE ONE (20:46)
[2020-11-23] MEDS ORDERED: FLU VACC QS2020-21(65YR UP)/PF 240 MCG/0.7 ML SYRINGE IM ONE (21:00)
[2020-11-23] MEDS ORDERED: Famotidine/PF 20 mg/2ml Vial SLOW IVP SCH (21:00)
[2020-11-23] MEDS ORDERED: Bisacodyl 10 MG SUPP PR SCH (21:00)
[2020-11-23] MEDS ORDERED: Enoxaparin Sodium 80 MG/0.8 ML SYRINGE SC SCH (21:00)
[2020-11-23] MEDS: GUAIFENESIN SF SOLN 200 MG/10 ML UDCUP PER TUBE SCH (21:07)
[2020-11-23] MEDS: Pantoprazole 40 MG VIAL IVP SCH (21:09)
[2020-11-23] MEDS: Insulin Regular 300 UNITS/3 ML VIAL SC PRN (21:26)
[2020-11-24] MEDS: Amiodarone 450 MG, Admixture Fee 1 EACH in Dextrose 5% in Water 250 ML IVPB SCH ×2 (01:18→13:06)
[2020-11-24] MEDS: Vancomycin 1 GM in Premix Bag 1 BAG IVPB SCH (03:16)
[2020-11-24] MEDS ORDERED: Fentanyl CADD 100 ML ONE (04:02)
[2020-11-24] MEDS: Fentanyl CADD 100 ML IV SCH (04:06)
[2020-11-24 04:13] LABS: Lactic Acid 2.3 mmol/L (0.5-2.2)
[2020-11-24 04:27] LABS: ALT (SGPT) 23 U/L (8-55); AST (SGOT) 49 U/L (5-34); Albumin 2.7 g/dL (3.4-4.8); Alkaline Phosphatase 90 U/L (40-110); Anion Gap 16 mmol/L (10-20); BUN (Urea Nitrogen) 38 mg/dL (9.8-20.1); Bilirubin, Total 2.7 mg/dL (0.2-1.2); Calc. Creatinine Clearance 32 mL/min (70-130); Calcium 8.1 mg/dL (7.8-10.44); Carbon Dioxide 28 mmol/L (23-31); Chloride 88 mmol/L (98-107); Globulin 2.3 g/dL (2.4-3.5); Glucose 345 mg/dL (83-110); Phosphorus 2.3 mg/dL (2.3-4.7); Potassium 4.8 mmol/L (3.5-5.1); Sodium 127 mmol/L (136-145)
[2020-11-24 04:31] LABS: Band 15 % (5-11); Hemoglobin 8.1 g/dL (12.0-16.0); Hypochromia SLIGHT = 6-15 cells (100X) (0-5/hpf); Lymphocytes 12 % (21-51); MDiff Complete? YES; Mean Corpuscular HGB CONC 32.2 g/dL (32.0-36.0); Mean Corpuscular Hemoglobin 29.3 pg (27.0-31.0); Mean Corpuscular Volume 91.1 fL (78.0-98.0); Mean Platelet Volume 7.2 fL (7.4-10.4); Monocytes 7 % (0-10); Neutrophil 66 % (42-75); Platelet Count 229 thou/uL (130-400); Platelet Morphology Comment Appears Adequate; Red Blood Cell (RBC) Count 2.77 mill/uL (4.20-5.40); White Blood Cell (WBC) Count 18.4 thou/uL (4.8-10.8)
[2020-11-24] MEDS: Insulin Regular 300 UNITS/3 ML VIAL SC PRN ×3 (04:48→11:57)
[2020-11-24] MEDS: Piperacillin/Tazobactam 4.5 GM in Sodium Chloride 0.9% 100 ML IVPB SCH ×3 (05:19→21:00)
[2020-11-24] MEDS: Levothyroxine Sodium 75 MCG TAB PER TUBE SCH (05:19)
[2020-11-24] MEDS ORDERED: Potassium Phosphate 22 MMOL in Sodium Chloride 0.9% 250 ML 250 ML IVPB SCH (06:15)
[2020-11-24] MEDS ORDERED: Magnesium 2 GM/50 ML 2 GM in Premix Bag 1 BAG IVPB SCH (06:15)
--- NOTE | 2020-11-24 06:54 | CON ---
DATE OF CONSULTATION: 11/23/2020 CONSULTING PHYSICIAN: Carter Hyde MD REASON FOR CONSULTATION: Acute kidney injury, hyperkalemia. REASON FOR ADMISSION: Shortness of breath. HISTORY OF PRESENT ILLNESS: This is an 85-year-old female with history of CHF, hyperlipidemia, hypertension, atrial fibrillation, who came to the hospital with shortness of breath and is being treated for possible atelectasis and CHF exacerbation. The patient was also found to have hyperkalemia with a potassium level of 6.7, which improved to 4.9 with medical management. She was also having respiratory acidosis on arrival. She is currently intubated. Her daughter was at the bedside. Apparently, she was hospitalized at the [facility] for CHF exacerbation and was transferred to rehab, where she was started having shortness of breath, which is now thought to be secondary to mucus plug and possible atelectasis. PAST MEDICAL HISTORY: Positive for CHF, hyperlipidemia, hypertension, atrial fibrillation, and type 2 diabetes. PAST SURGICAL HISTORY: Not available. HOME MEDICATIONS: Reviewed. ALLERGIES: METFORMIN. SOCIAL HISTORY: No smoking, alcohol, or illicit drugs abuse. FAMILY HISTORY: No history of any kidney disease. REVIEW OF SYSTEMS: Could not be obtained. The patient is intubated. PHYSICAL EXAMINATION: GENERAL: This is an elderly female, who is intubated. VITAL SIGNS: Temperature 99.3, pulse 107, respiratory rate 21, and blood pressure 102/48. HEENT: Intubated. CV: S1 and S2 heard. RESPIRATORY: Clear. GASTROINTESTINAL: Abdomen is soft. MUSCULOSKELETAL: 1+ edema. DERMATOLOGIC: No skin rash. NEUROLOGICAL: Intubated. LABORATORY DATA: Potassium 4.9, BUN is 39, and creatinine is 1.05. Hemoglobin 9.7. ASSESSMENT AND PLAN: 1. Acute kidney injury on chronic kidney disease. Renal function is looking better. 2. Hyperkalemia, much better, most likely from acidosis. 3. Edema, controlled. 4. History of hypertension. 5. Type 2 diabetes. 6. Acute encephalopathy. 7. Hyponatremia. 8. Acute hypoxic respiratory failure, intubated. Renal function is stable. Potassium level is better, monitor. Avoid nephrotoxins. I will follow the case along with you. Thank you for the consult. Job ID: [id number]
[2020-11-24] MEDS: Pantoprazole 40 MG VIAL IVP SCH ×2 (07:58→20:57)
[2020-11-24] MEDS: GUAIFENESIN SF SOLN 200 MG/10 ML UDCUP PER TUBE SCH ×2 (07:58→20:58)
[2020-11-24] MEDS: Norepinephrine 8 MG/0.9% NS 250 ML IVPB SCH (08:00)
[2020-11-24] MEDS ORDERED: Furosemide 40 MG/4 ML VIAL SLOW IVP SCH (08:00)
--- NOTE | 2020-11-24 08:15 | PRG ---
DATE OF SERVICE: 11/24/2020 35 minutes of critical care time. SUBJECTIVE: The patient remains intubated, on mechanical ventilation. She is sedated, on no continuous drips at this time except for fentanyl. OBJECTIVE: VITAL SIGNS: Her temperature is 100.2, pulse 114, blood pressure 130/62, and O2 saturation 98%. 24-hour intake 4012, output 1808. HEENT: Unremarkable. NECK: No JVD. LUNGS: Diminished breath sounds in the right base. CARDIOVASCULAR: S1 and S2, irregularly irregular, and tachycardic. ABDOMEN: Soft, but slightly distended. Bowel sounds diminished. EXTREMITIES: Generalized mild edema throughout. LABORATORY DATA: Sodium 127, down from 132; potassium 4.8; chloride 88; CO2 of 28; BUN 38; creatinine 1.3; glucose 164. AST 49, ALT 23. Cortisol level 16. TSH 1.15. White blood cell count 18.4, hematocrit 25.2, and platelet count 229. X-ray shows a layering effusion on the right, fairly clear on the left. ASSESSMENT: 1. Acute on chronic hypoxic respiratory failure, requiring mechanical ventilation. 2. Status post left lung atelectasis. 3. Right effusion. 4. Likely significant total body fluid overload. PLAN: 1. Wean off vasopressors as tolerated. 2. Consider scaling back on antibiotics if cultures become negative. 3. The patient currently anticoagulated for atrial fibrillation. 4. Given the amount of fluid overload, I would like to give her some diuretics and see how she does. Job ID: [id number]
--- NOTE | 2020-11-24 08:24 | RAD ---
Exam: 1 view abdomen HISTORY: Ileus. FINDINGS: There is a nasogastric tube in a markedly distended stomach. Multiple air-filled loops of small bowel . There does appear to be some air in nondistended colon. Stable catheter projecting over the right hemipelvis. No evidence of pneumoperitoneum on supine projection. IMPRESSION: Essentially stable gaseous distention of the alimentary canal. Correlate for ileus versus obstruction . Additional imaging if warranted. Transcribed Date/Time: 11/24/2020 8:27 AM
[2020-11-24 08:29] LABS: Analyzer IN Cardio OR; Base Excess (BEa) 4.8 mEq/L (-2.0 to +3.0); CO2 Tension 30.7 mmHg (35.0-45.0); Carboxyhemoglobin (COHb) 0.8 gm% (0.0-3.0); Hemoglobin (Hb) 8.7 g/dL (12.0-16.0); O2 Tension (PaO2), arterial 60.1 mmHg (> 60.0); Potassium - ABG Lab 4.77 mmol/L (3.70-5.30); pH, Arterial 7.56 (7.35-7.45)
[2020-11-24 08:30] LABS: Puncture Site RBA
[2020-11-24 08:31] LABS: ALV-art Gradient 258.025 mmHg (0-20)
--- NOTE | 2020-11-24 09:18 | RAD ---
CHEST 1 VIEW: HISTORY: Pneumonia. COMPARISON: Radiograph 11/22/2020. Also CT of the chest 11/23/2020. FINDINGS: Improved left lung aeration. Large right and moderate left layering pleural effusions. Endotracheal tube tip in the gastric body. Heart size is similar. No acute osseous abnormality. IMPRESSION: 1. Slight improved lung aeration from the prior exam. 2. Continued large right and moderate left layering pleural effusions. POS: HOME
[2020-11-24] MEDS ORDERED: Iopamidol 370 76% 50 ML VIAL FS ONE (11:17)
--- NOTE | 2020-11-24 11:26 | CON ---
DATE OF CONSULTATION: 11/24/2020 REASON FOR CONSULT: Rule out obstruction, rule out bowel ischemia. HISTORY OF PRESENT ILLNESS: Ms. Friedman is an 85-year-old female who recently was at [facility] apparently with heart failure and then was at [facility] where she developed respiratory distress. Ultimately, she was transferred to this hospital and intubated in the emergency room. There was concern about a pleural effusion, but ultimately, this was felt to probably be a mucus plug. Repeat CAT scan showed complete resolution of the whiteout in the left chest. I have been asked to see her as a KUB on the showed nonspecific gas distention of the colon, leukocytosis as well, some renal insufficiency. The patient is on the ventilator, but is awake. When asked about abdominal pain, she shakes her head no. The nurse notes she has had no bowel movements. Her urine output was low, but then she received Lasix. She is about 60 an hour now. PAST MEDICAL HISTORY: Congestive heart failure, hyperlipidemia, hypertension, atrial fibrillation, diabetes, history of previous right renal mass, history of thyroid nodule, history of tachy-jimmy syndrome. ALLERGIES: METFORMIN. PAST SURGICAL HISTORY: Pacemaker placement. MEDICATIONS: Prior to admission, 1. Lipitor. 2. Lasix. 3. Lactobacillus. 4. Levothyroxine. 5. Lidoderm patch. 6. Melatonin. 7. Metoprolol. 8. Pantoprazole. 9. MiraLAX. 10. Xarelto. 11. Potassium chloride. Medicines here, 1. Amiodarone. 2. Bisacodyl. 3. Lovenox. 4. Fentanyl p.r.n. 5. Insulin sliding scale. 6. Levothyroxine. 7. Ativan. 8. Zosyn. 9. Vancomycin. PHYSICAL EXAMINATION: GENERAL: The patient is in bed. She is thin. She is on the ventilator. Her eyes are open. She will shake her head yes/no. VITAL SIGNS: Pulse is irregular at 120, blood pressure 114/47, respirations 22. She has been afebrile. Temperature 98.2. LUNGS: Clear. HEART: Regular rate and rhythm without murmurs. ABDOMEN: Soft, nontender. There is diastasis recti. There is no overt firmness or tenderness to deep palpation. Bowel sounds are quiescent. No scars in the abdomen. RECTAL: Reveals nothing in the vault. EXTREMITIES: No clubbing, cyanosis, edema. LABORATORY STUDIES: White count 18.4, it was 11 on admission; hemoglobin 8.1, 9.0 on admission; platelets 229; 15% bands. Blood gas today; pH 7.56, pO2 60, pCO2 30. Sodium 127, potassium 4.8, bicarb 28, chloride 88, BUN and creatinine 38 and 1.38, glucose 345. Bilirubin 2.7, AST 49, ALT 23. They were normal on admission except for bilirubin of 1.7. Albumin 2.7, protein 5, TSH 1.15, cortisol 16. Urine; no bacteria, some leukocyte esterase. COVID negative. IMAGING: KUB with some increased gas in the colon. ASSESSMENT: 1. Acute on chronic respiratory failure requiring intubation. 2. Status post left lung atelectasis, resolved. 3. Leukocytosis of unclear etiology. 4. Abdominal ultrasound showed some increased gaseous distention, looks like it is the colon to me. She has had no bowel movement. She has no bowel sounds, but she has a nontender abdomen on exam and she cannot know that her belly does not hurt. Nurse notes she had a lot of NG output earlier last night. She is having urine output now with some Lasix. The feeling by critical care is that she is total body fluid overloaded. 5. As for her abdominal distention, the nurse notes it is much softer today than it was yesterday. She has been at an outside hospital prior to this and at rehab as well. We need to check for C diff which has already been ordered by the admitting internal medicine service, and that is a good idea. We will go ahead and get a CAT scan of the abdomen and pelvis to make sure there is not a volvulus or something else going on in light of the amount of distention seen in the colon on the KUB yesterday. I did review those films myself, and I reviewed the films today. This shows a probably distended stomach and not bowel. PLAN: Stool for C diff. Continue NG tube suction. CT scan of the abdomen with oral contrast only. Job ID: [id number]
--- NOTE | 2020-11-24 12:37 | PRG ---
DATE OF SERVICE: 11/24/2020 SUBJECTIVE: The patient was seen and examined at bedside. Daughter was at the bedside. The patient remains intubated, but awake. OBJECTIVE: GENERAL: This is an elderly female, intubated. VITAL SIGNS: Temperature 98.2, pulse 113, respiratory rate 22, and blood pressure 115/60. HEENT: Intubated. CV: S1 and S2 heard. Tachycardia. RESPIRATORY: Clear anteriorly. GI: Abdomen is soft. MUSCULOSKELETAL: 1+ edema. DERMATOLOGIC: No skin rash. NEUROLOGICAL: Intubated, but awake. LABORATORY DATA: Hemoglobin 8.1, potassium 4.8, sodium 127, BUN is 38, creatinine is 1.3. ASSESSMENT AND PLAN: 1. Acute kidney injury on chronic kidney stage 3 secondary to cardiorenal syndrome. Agree with Lasix for now with close monitoring. The patient was fluid positive balance yesterday and is currently hyponatremic also. 2. Hyponatremia. Agree with the Lasix, most likely from hypervolemia and congestive heart failure. 3. Hyperkalemia, better. 4. Edema. 5. Hypertension. 6. Acidosis. 7. Acute hypoxic respiratory failure, intubated. 8. Agree with Lasix. Monitor renal function. Job ID: [id number]
--- NOTE | 2020-11-24 14:19 | PDOC.CPN ---
- Subjective Date: 11/24/20 Time: 14:32 Interval history: She remains intubated, sedated. - Review of Systems ROS unobtainable: due to endotracheal tube - Objective Allergies/Adverse Reactions: Allergies Allergy/AdvReac Type Severity Reaction Status Date / Time metformin Allergy Verified 11/22/20 21:35 Visit Medications: Current Medications Acetaminophen (Acetaminophen 650 Mg Suppository) 650 mg AK Q6H PRN PRN Reason: Headache/Fever or Pain Acetaminophen (Acetaminophen 325 Mg/10.15 Ml Udcup) 650 mg PO Q6H PRN PRN Reason: Fever > 101 or Mild Pain Albuterol/Ipratropium (Ipratropium/Albuterol Sulfate 3 Ml Neb) 3 ml NEB Q6H PRN PRN Reason: SOB &/or Wheezing Bisacodyl (Bisacodyl 10 Mg Supp) 10 mg AK DAILYPRN PRN PRN Reason: Constipation Dextrose/Water (Dextrose 50% Abboject 50 Ml Syringe) 25 gm SLOW IVP PRN PRN PRN Reason: Hypoglycemia Enoxaparin Sodium (Enoxaparin Sodium 80 Mg/0.8 Ml Syringe) 70 mg SC 2100 FRANCHESKA Glucagon (Glucagon 1 Mg/Ml Vial) 1 mg IM PRN PRN PRN Reason: Hypoglycemia Guaifenesin (Guaifenesin Sf Soln 200 Mg/10 Ml Udcup) 600 mg PER TUBE Q12HR FRANCHESKA Last Admin: 11/24/20 07:58 Dose: 600 mg Documented by: Piperacillin Sod/Tazobactam (Sod 4.5 gm/ Sodium Chloride) 100 mls @ 200 mls/hr IVPB Q8HR FRANCHESKA Last Admin: 11/24/20 13:06 Dose: 100 mls Documented by: Fentanyl (Fentanyl Cadd) 100 mls @ 0 mls/hr IV INF FRANCHESKA; Protocol Stop: 12/23/20 01:15 Last Admin: 11/24/20 04:06 Dose: 100 mls Documented by: Fentanyl Citrate (Fentanyl Bolus) 250 mls @ 0 mls/hr IVPB PRN PRN PRN Reason: Breakthrough pain/agitation Stop: 12/23/20 01:15 Norepinephrine Bitartrate (Levophed) 250 mls @ 0 mls/hr IVPB INF FRANCHESKA; Protocol Last Admin: 11/24/20 08:00 Dose: 250 mls Documented by: Vancomycin HCl 1 gm/ Device 200 mls @ 200 mls/hr IVPB 0200 [facility] Last Admin: 11/24/20 03:16 Dose: 200 mls Documented by: Dextrose/Water (D5w) 1,000 mls @ 0 mls/hr IV .Q0M PRN PRN Reason: Hypoglycemia Amiodarone HCl 450 mg/Miscellaneous Medication 1 each/ Dextrose/Water 259 mls @ 0 mls/hr IVPB INF FRANCHESKA; Protocol Last Admin: 11/24/20 13:06 Dose: 259 mls Documented by: Insulin Human Regular (Insulin Regular 300 Units/3 Ml Vial) 0 units SC .MILD SLIDING SCALE PRN PRN Reason: Mild Correctional Scale Last Admin: 11/24/20 11:57 Dose: 2 unit Documented by: Levothyroxine Sodium (Levothyroxine Sodium 75 Mcg Tab) 75 mcg PER TUBE 0600 [facility] Last Admin: 11/24/20 05:19 Dose: 75 mcg Documented by: Lorazepam (Lorazepam 2 Mg/Ml Vial) 2 mg SLOW IVP Q1H PRN PRN Reason: Breakthrough agitation Stop: 12/23/20 01:15 Magnesium Hydroxide (Milk Of Magnesia 30 Ml Udcup) 30 ml PO Q8H PRN PRN Reason: Constipation Miscellaneous Medication (Pharmacy To Dose Vancomycin) 1 each IVPB PRN PRN PRN Reason: Pharmacy to dose Miscellaneous Medication (Electrolyte Replacement Protocol) 0 each FS ASDIR PRN; Protocol PRN Reason: ELECTROLYTE REPLACEMENT Miscellaneous Medication (Pharmacy To Dose Vancomycin/Zosyn) 1 each IVPB PRN PRN PRN Reason: Pharmacy to dose Morphine Sulfate (Morphine 2 Mg/Ml Vial) 2 mg SLOW IVP Q1H PRN PRN Reason: Breakthrough Pain/Agitation Stop: 12/23/20 01:15 Discontinue Previous Narcotic Pain Medications And Benzodiazepines 1 each FS .ONE FRANCHESKA Stop: 12/23/20 01:15 Pantoprazole Sodium (Pantoprazole 40 Mg Vial) 40 mg IVP Q12HR [facility] Last Admin: 11/24/20 07:58 Dose: 40 mg Documented by: Propofol (Propofol 1,000 Mg/100 Ml Vial) 1,000 mg IV INF PRN; Protocol PRN Reason: TO ACHIEVE GOAL RASS Stop: 12/23/20 01:15 Last Admin: 02/18/21 02:22 Dose: 1,000 mg Documented by: Propofol (Propofol Bolus 1,000 Mg/100 Ml Vial) 20 mg IV Q5MIN PRN PRN Reason: BREAKTHROUGH AGITATION Stop: 12/23/20 01:15 Sodium Chloride (Flush - Normal Saline 10 Ml Syringe) 10 ml IVF Q12HR FRANCHESKA Last Admin: 11/24/20 08:00 Dose: 10 ml Documented by: Sodium Chloride (Flush - Normal Saline 10 Ml Syringe) 10 ml IVF PRN PRN PRN Reason: Saline Flush Vital Signs & Weight: Vital Signs Temp Pulse Resp BP Pulse Ox 11/24/20 12:00 22 H 11/24/20 10:47 115 H 11/24/20 10:00 22 H 11/24/20 08:00 23 H 11/24/20 07:50 97 11/24/20 06:56 126 H 131/66 97 11/24/20 06:00 98.2 F 16 11/24/20 04:00 16 11/24/20 02:53 117 H 136/49 L Admit Weight 149 lb Weight 150 lb 5.684 oz - Physical Exam General: other (S/!) HEENT: normocephaly Neck: supple neck Cardiac: irregularly regular Lungs: decreased breath sounds Neuro: no lateralizing findings Abdomen: decreased bowel sounds Extremities: no edema Skin: clear Musculoskeletal: normal range of motion - Labs Result Diagrams: 11/24/20 03:30 11/24/20 03:30 Troponin/CKMB Troponin I 0.023 ng/mL (< 0.028) 11/22/20 19:41 - Telemetry Supraventricular conduction: atrial fibrillation - Assessment/Plan Assessment/Plan: 1. Afib RVR 2. COPD 3. Acute hypoxic respiratory insufficiency. 4. Collapsed left lung, likely from mucous plug, resolved. 5. Severe RV dysfunction. PLAN: - Currently heart rate in the 90's to 110's. Will do lenient rate control. - Continue amiodarone drip - Levophed for low BP. - Likely afib will improve when levophed weaned off. - May need digoxin for better control.
[2020-11-24 16:02] LABS: #Lymphocytes 1.1 thou/uL (1.20-3.40); #Monocytes 1.2 thou/uL (0.11-0.59); #Neutrophils 14.9 thou/uL (1.40-6.50); %Basophils 0.2 % (0.0-1.0); %Eosinophils 0.1 % (0.0-10.0); %Lymphocytes 6.1 % (21.0-51.0); %Monocytes 6.9 % (0.0-10.0); %Neutrophils 86.7 % (42.0-75.0); Hemoglobin 7.8 g/dL (12.0-16.0); Mean Corpuscular HGB CONC 33.5 g/dL (32.0-36.0); Mean Corpuscular Hemoglobin 30.6 pg (27.0-31.0); Mean Corpuscular Volume 91.3 fL (78.0-98.0); Platelet Count 197 thou/uL (130-400); RBC Distribution Width 15.8 % (11.5-14.5); Red Blood Cell (RBC) Count 2.54 mill/uL (4.20-5.40); White Blood Cell (WBC) Count 17.2 thou/uL (4.8-10.8)
--- NOTE | 2020-11-24 16:09 | CT ---
CT ABDOMEN AND PELVIS WITHOUT IV CONTRAST: 11/24/20 Oral contrast was given. Contrast remains within the kidneys from yesterday's CT chest with and witho ut contrast. INDICATIONS: Abdominal distention and abdominal pain. No comparison CT abdomen and pelvis. FINDINGS: Images through the lung bases show bilateral effusions and lower lung consolidation. See yesterday's CT chest. The liver, spleen, and pancreas appear unremarkable. The gallbladder is distended and calcified and there is at least one large gallstone within the gallb ladder lumen. 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 No ev idence of significant biliary duct dilatation. The vena cava is dilated consistent with congestive change. Kidneys show residual opacification and appear unremarkable. No hydronephrosis. There is evidence of an exophytic cyst from the right kidney measuring up to 4 cm. The small bowel loops are normal caliber. There is opacification of the small bowel loops and right colon. Colon appears unremarkable. Aorta no rmal caliber. No significant free fluid. The uterus and adnexa unremarkable. Osseous structures show diffuse osteopenia and multilevel degenerative changes in the lumbar spine. The subcutaneous tissues show diffuse haziness consistent with anasarca. IMPRESSION: 1. There is a distended calcified gallbladder with at least one large peripherally calcified gal lstone in the gallbladder fundus. 2. Otherwise no acute intra-abdominal process identified. 3. The lung bases show bilateral effusions and dense bibasilar consolidation with evidence of va scular congestion. There is evidence of diffuse anasarca. POS: AGW
[2020-11-24 16:23] LABS: Anion Gap 13 mmol/L (10-20); BUN (Urea Nitrogen) 37 mg/dL (9.8-20.1); Calc. Creatinine Clearance 32 mL/min (70-130); Calcium 8.1 mg/dL (7.8-10.44); Carbon Dioxide 31 mmol/L (23-31); Chloride 93 mmol/L (98-107); Glucose 153 mg/dL (83-110); Potassium 4.4 mmol/L (3.5-5.1); Sodium 133 mmol/L (136-145)
--- NOTE | 2020-11-24 16:35 | PDOC.HOSPP ---
- Subjective Encounter Date: 11/24/20 Encounter Time: 13:00 non-verbal Subjective: Patient seen and examined for respiratory failure. On mechanical ventilation. On amiodarone/Levophed drip. Events noted. - Objective Vital Signs & Weight: Vital Signs (12 hours) Temp Pulse Resp BP Pulse Ox 11/24/20 16:00 21 H 11/24/20 14:00 21 H 11/24/20 12:00 22 H 11/24/20 10:47 115 H 11/24/20 10:00 22 H 11/24/20 08:00 23 H 11/24/20 07:50 97 11/24/20 06:56 126 H 131/66 97 11/24/20 06:00 98.2 F 16 Weight Admit Weight 149 lb Weight 150 lb 5.684 oz Most Recent Monitor Data Heart Rate from ECG 92 NIBP 112/57 NIBP BP-Mean 75 Respiration from ECG 21 SpO2 98 I&O: 11/23/20 11/24/20 11/25/20 06:59 06:59 06:59 Intake Total 346 4012.5 1714 Output Total 205 1808 940 Balance 141 2204.5 774 Result Diagrams: 11/24/20 15:45 11/24/20 15:45 Additional Labs: Accuchecks 11/24/20 11/24/20 11/24/20 11:53 07:46 04:46 POC Glucose 171 H 169 H 164 H 11/24/20 11/23/20 11/23/20 00:43 21:24 16:01 POC Glucose 149 H 155 H 146 H Abnormal Lab Results - Last 48 hrs 11/22/20 19:41: Sodium 130 L, Potassium 6.7 H*, Chloride 87 L, Carbon Dioxide 34 H, BUN 37 H, Creatinine 1.23 H, Total Bilirubin 1.4 H, Alkaline Phosphatase 122 H, Albumin/Globulin Ratio 1.1 L 11/22/20 19:41: WBC 11.3 H, RBC 3.31 L, Hgb 9.8 L, Hct 31.8 L, MCHC 30.9 L, RDW 14.9 H, MPV 7.3 L, Neutrophils % 85.8 H, Lymphocytes % 5.5 L, Neutrophils # 9.7 H, Lymphocytes # 0.6 L, Monocytes # 1.0 H 11/22/20 19:41: B-Natriuretic Peptide 1241.5 H 11/22/20 20:00: Bicarbonate Actual 33.2 H, ABG pH 7.20 L*, ABG pCO2 87.0 H*, ABG pO2 90.4 H, ABG O2 Content 13.8 L, ABG Base Excess 3.4 H, ABG Hematocrit 30.0 L, ABG Hemoglobin 10.2 L, ABG Deoxyhemoglobin 3.8 H, A-a O2 Gradient 513.850 H, Sodium 128 L, Potassium 6.13 H, Chloride 90 L 11/22/20 20:50: ABG pO2 48.9 L*, ABG O2 Sat (Measured) 88.3 L, ABG O2 Content 11.2 L, ABG Hematocrit 27.0 L, ABG Hemoglobin 9.1 L, ABG Oxyhemoglobin 87.2 L, ABG Deoxyhemoglobin 11.6 H, A-a O2 Gradient 255.975 H, Sodium 129 L, Potassium 5.43 H, Chloride 93 L 11/22/20 21:07: Urine Clarity Turbid A, Urine Protein 70 A, Ur Leukocyte Est erase 75 A, Urine WBC 11-20 A, Urine Yeast (Budding) 1+ A 11/22/20 23:44: Sodium 130 L, Potassium 5.9 H, Chloride 89 L, Carbon Dioxide 33 H, BUN 38 H 11/23/20 03:42: Sodium 131 L, Chloride 90 L, Carbon Dioxide 35 H, BUN 39 H 11/23/20 03:42: WBC 16.5 H, RBC 3.05 L, Hgb 9.0 L, Hct 28.7 L, MCHC 31.4 L, RDW 14.9 H, Neutrophils % (Manual) 80 H, Band Neuts % (Manual) 14 H, Lymphocytes % (Manual) 5 L 11/23/20 07:39: Lactic Acid 6.0 H* 11/23/20 10:25: Lactic Acid 5.9 H* 11/23/20 13:55: Bicarbonate Actual 31.9 H, ABG pH 7.58 H*, ABG pCO2 34.6 L, ABG pO2 66.3 H, ABG O2 Content 13.2 L, ABG Base Excess 9.5 H, ABG Hematocrit 29.0 L, ABG Hemoglobin 9.8 L, ABG Deoxyhemoglobin 4.0 H, A-a O2 Gradient 460.850 H, Sodium 127 L, Chloride 92 L 11/23/20 16:06: Sodium 132 L, Chloride 91 L, BUN 43 H, Creatinine 1.25 H, Phosphorus 1.1 L 11/23/20 16:06: Lactic Acid 2.6 H 11/24/20 03:30: Lactic Acid 2.3 H 11/24/20 03:30: WBC 18.4 H, RBC 2.77 L, Hgb 8.1 L, Hct 25.2 L, RDW 16.0 H, MPV 7.2 L, Band Neuts % (Manual) 15 H, Lymphocytes % (Manual) 12 L 11/24/20 03:30: Sodium 127 L, Chloride 88 L, BUN 38 H, Creatinine 1.38 H, Total Bilirubin 2.7 H, AST 49 H, Serum Total Protein 5.0 L, Albumin 2.7 L, Globulin 2.3 L 11/24/20 08:25: ABG pH 7.56 H*, ABG pCO2 30.7 L, ABG pO2 60.1 H, ABG O2 Sat (Measured) 93.6 L, ABG O2 Content 11.4 L, ABG Base Excess 4.8 H, ABG Hematocrit 26.0 L, ABG Hemoglobin 8.7 L, ABG Oxyhemoglobin 92.6 L, ABG Deoxyhemoglobin 6.3 H, A-a O2 Gradient 258.025 H, Ionized Calcium 1.10 L, Sodium 129 L, Chloride 95 L 11/24/20 15:45: Sodium 133 L, Chloride 93 L, BUN 37 H, Creatinine 1.39 H 11/24/20 15:45: WBC 17.2 H, RBC 2.54 L, Hgb 7.8 L, Hct 23.2 L, RDW 15.8 H, MPV 7.0 L, Neutrophils % 86.7 H, Lymphocytes % 6.1 L, Neutrophils # 14.9 H, Lymphocytes # 1.1 L, Monocytes # 1.2 H Microbiology - Entire Visit 11/22/20 21:07 Urine mercado catheter Urine Culture - Preliminary Yeast species 11/22/20 22:04 Venous blood - Right Hand Blood Culture - Preliminary Specimen has been received and culture in progress. No Growth to date. 11/22/20 22:04 Venous blood - Right Arm Blood Culture - Preliminary Specimen has been received and culture in progress. No Growth to date. Vent - Assess Status Start: 11/22/20 22:53 Freq: Q2HR Status: Active Protocol: Document 11/24/20 16:00 KD (Rec: 11/24/20 16:26 KD [email or web address]) Ventilator Status/Info Patient/Vent Settings Endotracheal Tube Insertion Site Oral Endotracheal ETT Position (cm) 23 Trach Cuff Inflated Yes Ventilator Mode SIMV FIO2 45 Vent TV Set 400 Delivered TV 430 Patient TV (Spontaneous) Vent RR 12 Patient RR (12-20) 21 Peak Pressure (cmH2O) 24 PEEP (cm H2O) 10 PSV 10 Sedation (RASS) Arango Agitation-Sedation Scale (RASS): +4 = Combative: Combative, violent, immediate danger to staff +3 = Very agitated: Pulls to remove tubes or catheter; aggressive +2 = Agitated: Frequent non-purposeful movement, fights ventilator +1 = Restless: Anxious, apprehensive, movements not aggressive 0 = Alert and Calm: Spontaneously pays attention to caregiver -1 = Drowsy: Not fully alert, but has sustained awakening to voice -2 = Light sedation: Briefly awakens to voice (eyes contact < 10 secs) -3 = Moderate sedation: Movement or eye opening to voice (no eye contact) -4 = Deep sedation: No response to voice, but movement or eye opening to physical stimulation -5 = Unarousable: No response to voice or physical stimulation Sedation Yes Sedation Type fentanyl RASS Goal Score -2 RASS Actual Score [-2] Light sedation Intervention to attain goal Comfort Care Call [place] Within Reach Oral Care Teeth Brushing,Clorhexidine Oral Rinse HOB Angle (degrees) 30 Patient Turned Left *If no, document why not Radiology Reviewed by me: Yes (Chest x-raypleural effusionbilateral) EKG Reviewed by me: Yes (Atrial fibrillation on telemetry) Hospitalist ROS - Review of Systems ROS unobtainable: due to mental status - Medication Medications: Active Medications Generic Name Dose Route Start Last Admin Trade Name Freq PRN Reason Stop Dose Admin Guaifenesin 600 mg 11/23/20 21:00 11/24/20 07:58 Guaifenesin Sf Soln 200 Mg/10 Ml Udcup PER TUBE 600 mg Q12HR FRANCHESKA Administration Piperacillin Sod/Tazobactam 100 mls @ 200 mls/hr 11/23/20 06:00 11/24/20 13:06 Sod 4.5 gm/ Sodium Chloride IVPB 100 mls Q8HR FRANCHESKA Administration Fentanyl 100 mls @ 0 mls/hr 11/23/20 01:15 11/24/20 04:06 Fentanyl Cadd IV 12/23/20 01:15 100 mls INF FRANCHESKA Administration Protocol Per Protocol Norepinephrine Bitartrate 250 mls @ 0 mls/hr 11/23/20 06:00 11/24/20 08:00 Levophed IVPB 250 mls INF FRANCHESKA Administration Protocol Titrate Vancomycin HCl 1 gm/ Device 200 mls @ 200 mls/hr 11/24/20 02:00 11/24/20 03:16 IVPB 200 mls 0200 FRANCHESKA Administration Amiodarone HCl 450 mg/ 259 mls @ 0 mls/hr 11/23/20 17:15 11/24/20 13:06 Miscellaneous Medication 1 IVPB 259 mls each/ Dextrose/Water INF FRANCHESKA Administration Protocol As Directed Insulin Human Regular 0 units 11/23/20 14:35 11/24/20 11:57 Insulin Regular 300 Units/3 Ml Vial SC 2 unit .MILD SLIDING SCALE PRN Administration Mild Correctional Scale Levothyroxine Sodium 75 mcg 11/24/20 06:00 11/24/20 05:19 Levothyroxine Sodium 75 Mcg Tab PER TUBE 75 mcg 0600 FRANCHESKA Administration Pantoprazole Sodium 40 mg 11/23/20 21:00 11/24/20 07:58 Pantoprazole 40 Mg Vial IVP 40 mg Q12HR FRANCHESKA Administration Propofol 1,000 mg 11/23/20 01:15 11/23/20 02:22 Propofol 1,000 Mg/100 Ml Vial IV 12/23/20 01:15 1,000 mg INF PRN Administration TO ACHIEVE GOAL RASS Protocol Sodium Chloride 10 ml 11/23/20 09:00 11/24/20 08:00 Flush - Normal Saline 10 Ml Syringe IVF 10 ml Q12HR FRANCHESKA Administration Hospitalist Exam Vitals: Vital Signs (12 hours) Temp Pulse Resp BP Pulse Ox 11/24/20 16:00 21 H 11/24/20 14:00 21 H 11/24/20 12:00 22 H 02/19/21 10:47 115 H 11/24/20 10:00 22 H 11/24/20 08:00 23 H 11/24/20 07:50 97 11/24/20 06:56 126 H 131/66 97 11/24/20 06:00 98.2 F 16 Weight Admit Weight 149 lb Weight 150 lb 5.684 oz Most Recent Monitor Data Heart Rate from ECG 92 NIBP 112/57 NIBP BP-Mean 75 Respiration from ECG 21 SpO2 98 General Appearance: ill appearing General - other findings: On ventilator Neck: supple, symmetric Neck - other findings: Intubated Heart: RRR, no gallops Respiratory: no wheezes, rhonchi Respiratory - other findings: Decreased air entry at bilateral bases Gastrointestinal: soft, non-tender, no guarding, no rigidity, diminished bowl sounds Extremities: no cyanosis, no clubbing Neurological - other findings: Neuro/psychexam limited due to current mentation Hosp A/P - Plan DVT proph w/lovenox 85-year-old female with recent hospitalization at [facility] for heart failure as well as ESBL UTI was brought in from [facility] with respiratory failure along with encephalopathy. Acute hypoxic/hypercapnic respiratory failure requiring mechanical ventilation with severe metabolic acidosis/lactic acidosis/left lung atelectasis Status post bronchoscopy. Continue ventilator management per critical care. Ventilation sedation protocol. Lactic acid improving Severe sepsis/septic shock on pressors Etiology unclear. On broad-spectrum antibiotics. Continue to wean pressors as tolerated ?Acute on chronic diastolic heart failure exacerbation with atrial fibrillation with rapid ventricular response. Cardiology input appreciated. On amiodarone drip. Continue anticoagulation with Lovenox Worsening abdominal distention with concern for for bowel obstruction GI input appreciated. Schedule for CT abdomen today with oral contrast. Continue OG tube suctioning. Await sample for C. difficile Multiple electrolyte abnormalityhyponatremia/hyperkalemia/hypophosphatemia Monitor electrolytes and replace accordingly Hyperlipidemia Statins on hold due to abnormal LFTs Recent UTIcompleted 7 days of antibiotics Hypertension Patient is currently hypotensive on pressors Diabetes mellitus type 2 Start sliding scale Sick sinus syndrome Patient has a pacemaker in place Abnormal LFTs Probably due to passive hepatic congestion. Recheck LFTs in a.m. Avoid hepatotoxic agents
[2020-11-24] MEDS: Enoxaparin Sodium 80 MG/0.8 ML SYRINGE SC SCH (20:57)
[2020-11-25] MEDS: Lorazepam 2 MG/ML VIAL SLOW IVP PRN ×2 (00:07→22:38)
[2020-11-25 01:24] LABS: Vancomycin, Trough 13.9 ug/mL
[2020-11-25] MEDS ORDERED: Fentanyl CADD 100 ML ONE ×2 (01:47→18:53)
[2020-11-25] MEDS: Vancomycin 1 GM in Premix Bag 1 BAG IVPB SCH (01:49)
[2020-11-25] MEDS: Fentanyl CADD 100 ML IV SCH (01:49)
[2020-11-25] MEDS: Amiodarone 450 MG, Admixture Fee 1 EACH in Dextrose 5% in Water 250 ML IVPB SCH ×2 (05:43→20:49)
[2020-11-25] MEDS: Piperacillin/Tazobactam 4.5 GM in Sodium Chloride 0.9% 100 ML IVPB SCH ×3 (05:43→21:36)
[2020-11-25] MEDS: Levothyroxine Sodium 75 MCG TAB PER TUBE SCH (05:44)
[2020-11-25 06:42] LABS: ALT (SGPT) 21 U/L (8-55); AST (SGOT) 50 U/L (5-34); Albumin 2.3 g/dL (3.4-4.8); Alkaline Phosphatase 92 U/L (40-110); Bilirubin, Direct 1.9 mg/dL (0.1-0.3); Bilirubin, Total 2.6 mg/dL (0.2-1.2); Magnesium 2.1 mg/dL (1.6-2.6); Protein, Total 4.5 g/dL (5.8-8.1)
[2020-11-25 06:46] LABS: Band 35 % (5-11); Hemoglobin 7.5 g/dL (12.0-16.0); Lymphocytes 13 % (21-51); MDiff Complete? YES; Mean Corpuscular HGB CONC 33.1 g/dL (32.0-36.0); Mean Corpuscular Hemoglobin 29.6 pg (27.0-31.0); Mean Corpuscular Volume 89.4 fL (78.0-98.0); Monocytes 3 % (0-10); Neutrophil 49 % (42-75); Platelet Count 175 thou/uL (130-400); Platelet Morphology Comment Appears Adequate; RBC Distribution Width 15.9 % (11.5-14.5); Red Blood Cell (RBC) Count 2.53 mill/uL (4.20-5.40); White Blood Cell (WBC) Count 15.5 thou/uL (4.8-10.8)
[2020-11-25 06:50] LABS: Phosphorus 2.8 mg/dL (2.3-4.7)
--- NOTE | 2020-11-25 08:34 | PRG ---
DATE OF SERVICE: 11/25/2020 35 minutes of critical care time. SUBJECTIVE: The patient remains intubated, on mechanical ventilation. She is requiring a Levophed drip at 1 mcg/minute. She is also on an amiodarone drip for control of her atrial fibrillation. OBJECTIVE: CURRENT VITAL SIGNS: Temperature is 99.3, pulse 81, blood pressure 105/59. 24-hour intake 3241, output 2080. HEENT: Unremarkable. NECK: No adenopathy or JVD. LUNGS: She has diminished breath sounds on the right compared to left. CARDIOVASCULAR: S1 and S2, irregularly irregular. ABDOMEN: Somewhat protuberant. EXTREMITIES: Generalized mild edema throughout. A CT of the abdomen obtained yesterday demonstrates continued right pleural effusion with infiltrate versus atelectasis in the right base. She has generalized anasarca throughout. LABORATORY DATA AND IMAGING STUDIES: White blood cell count 15.5, hematocrit 22.6, hemoglobin 7.5, and platelet count 175. ABG is pending. Chemistry is pending except for LFTs. Chest x-ray shows continued layering of the right pleural effusion. ASSESSMENT: 1. Acute on chronic respiratory failure, requiring mechanical ventilation. 2. Status post left lung atelectasis. 3. Right effusion. 4. Total body fluid overload. 5. Right ventricular hypertrophy/failure. PLAN: 1. Continue to wean off Levophed as tolerated. 2. I have decreased the PEEP on the vent. 3. So far, cultures from 11/22 are negative. Therefore, I will go ahead and stop the vancomycin, but we will give her the entire course of the Zosyn, which should be until 11/30. 4. She is currently on enoxaparin for anticoagulation related to her atrial fibrillation. 5. Overall, the patient's prognosis is very poor. I will try to speak with her daughter and give her an update. Job ID: [id number]
[2020-11-25 09:04] LABS: Anion Gap 13 mmol/L (10-20); BUN (Urea Nitrogen) 35 mg/dL (9.8-20.1); Calc. Creatinine Clearance 32 mL/min (70-130); Calcium 7.7 mg/dL (7.8-10.44); Carbon Dioxide 30 mmol/L (23-31); Chloride 95 mmol/L (98-107); Glucose 109 mg/dL (83-110); Potassium 3.8 mmol/L (3.5-5.1); Sodium 134 mmol/L (136-145)
[2020-11-25] MEDS: Pantoprazole 40 MG VIAL IVP SCH ×2 (09:27→20:43)
[2020-11-25] MEDS: GUAIFENESIN SF SOLN 200 MG/10 ML UDCUP PER TUBE SCH ×2 (09:27→20:48)
--- NOTE | 2020-11-25 10:00 | PDOC.CPN ---
- Subjective Date: 11/25/20 Time: 12:40 Interval history: Intubated sedated Still requiring low dose levophed Diuresing - Review of Systems ROS unobtainable: due to endotracheal tube - Objective Allergies/Adverse Reactions: Allergies Allergy/AdvReac Type Severity Reaction Status Date / Time metformin Allergy Verified 11/22/20 21:35 Visit Medications: Current Medications Albuterol/Ipratropium (Ipratropium/Albuterol Sulfate 3 Ml Neb) 3 ml NEB Q6H PRN PRN Reason: SOB &/or Wheezing Bisacodyl (Bisacodyl 10 Mg Supp) 10 mg AK DAILYPRN PRN PRN Reason: Constipation Dextrose/Water (Dextrose 50% Abboject 50 Ml Syringe) 25 gm SLOW IVP PRN PRN PRN Reason: Hypoglycemia Enoxaparin Sodium (Enoxaparin Sodium 80 Mg/0.8 Ml Syringe) 70 mg SC 2100 FRANCHESKA Last Admin: 11/24/20 20:57 Dose: 70 mg Documented by: Glucagon (Glucagon 1 Mg/Ml Vial) 1 mg IM PRN PRN PRN Reason: Hypoglycemia Guaifenesin (Guaifenesin Sf Soln 200 Mg/10 Ml Udcup) 600 mg PER TUBE Q12HR FRANCHESKA Last Admin: 11/25/20 09:27 Dose: 600 mg Documented by: Piperacillin Sod/Tazobactam (Sod 4.5 gm/ Sodium Chloride) 100 mls @ 200 mls/hr IVPB Q8HR FRANCHESKA Last Admin: 11/25/20 05:43 Dose: 100 mls Documented by: Fentanyl (Fentanyl Cadd) 100 mls @ 0 mls/hr IV INF FRANCHESKA; Protocol Stop: 12/23/20 01:15 Last Admin: 11/25/20 01:49 Dose: 100 mls Documented by: Fentanyl Citrate (Fentanyl Bolus) 250 mls @ 0 mls/hr IVPB PRN PRN PRN Reason: Breakthrough pain/agitation Stop: 12/23/20 01:15 Norepinephrine Bitartrate (Levophed) 250 mls @ 0 mls/hr IVPB INF FRANCHESKA; Protocol Last Admin: 11/24/20 08:00 Dose: 250 mls Documented by: Dextrose/Water (D5w) 1,000 mls @ 0 mls/hr IV .Q0M PRN PRN Reason: Hypoglycemia Amiodarone HCl 450 mg/Miscellaneous Medication 1 each/ Dextrose/Water 259 mls @ 0 mls/hr IVPB INF FRANCHESKA; Protocol Last Admin: 11/25/20 05:43 Dose: 259 mls Documented by: Insulin Human Regular (Insulin Regular 300 Units/3 Ml Vial) 0 units SC .MILD SLIDING SCALE PRN PRN Reason: Mild Correctional Scale Last Admin: 11/24/20 11:57 Dose: 2 unit Documented by: Levothyroxine Sodium (Levothyroxine Sodium 75 Mcg Tab) 75 mcg PER TUBE 0600 [facility] Last Admin: 11/25/20 05:44 Dose: 75 mcg Documented by: Lorazepam (Lorazepam 2 Mg/Ml Vial) 2 mg SLOW IVP Q1H PRN PRN Reason: Breakthrough agitation Stop: 12/23/20 01:15 Last Admin: 11/25/20 00:07 Dose: 2 mg Documented by: Magnesium Hydroxide (Milk Of Magnesia 30 Ml Udcup) 30 ml PO Q8H PRN PRN Reason: Constipation Miscellaneous Medication (Pharmacy To Dose Vancomycin) 1 each IVPB PRN PRN PRN Reason: Pharmacy to dose Miscellaneous Medication (Electrolyte Replacement Protocol) 0 each FS ASDIR PRN; Protocol PRN Reason: ELECTROLYTE REPLACEMENT Miscellaneous Medication (Pharmacy To Dose Vancomycin/Zosyn) 1 each IVPB PRN PRN PRN Reason: Pharmacy to dose Morphine Sulfate (Morphine 2 Mg/Ml Vial) 2 mg SLOW IVP Q1H PRN PRN Reason: Breakthrough Pain/Agitation Stop: 12/23/20 01:15 Discontinue Previous Narcotic Pain Medications And Benzodiazepines 1 each FS .ONE [facility] Stop: 12/23/20 01:15 Pantoprazole Sodium (Pantoprazole 40 Mg Vial) 40 mg IVP Q12HR [facility] Last Admin: 11/25/20 09:27 Dose: 40 mg Documented by: Propofol (Propofol 1,000 Mg/100 Ml Vial) 1,000 mg IV INF PRN; Protocol PRN Reason: TO ACHIEVE GOAL RASS Stop: 12/23/20 01:15 Last Admin: 11/23/20 02:22 Dose: 1,000 mg Documented by: Propofol (Propofol Bolus 1,000 Mg/100 Ml Vial) 20 mg IV Q5MIN PRN PRN Reason: BREAKTHROUGH AGITATION Stop: 12/23/20 01:15 Sodium Chloride (Flush - Normal Saline 10 Ml Syringe) 10 ml IVF Q12HR FRANCHESKA Last Admin: 11/25/20 09:27 Dose: 10 ml Documented by: Sodium Chloride (Flush - Normal Saline 10 Ml Syringe) 10 ml IVF PRN PRN PRN Reason: Saline Flush Vital Signs & Weight: Vital Signs Temp Pulse Resp BP Pulse Ox 11/25/20 08:00 98.7 F 11/25/20 07:31 79 105/59 L 100 11/25/20 06:00 98.2 F 14 11/25/20 04:00 13 11/25/20 02:19 86 107/43 L 11/25/20 02:00 13 11/25/20 00:00 14 11/24/20 22:21 89 120/55 L 11/24/20 22:00 14 Admit Weight 149 lb Weight 152 lb 8.958 oz - Physical Exam General: no apparent distress, other Cardiac: no murmur Lungs: decreased breath sounds Abdomen: unremarkable - Labs Result Diagrams: 11/25/20 06:06 11/25/20 08:11 Troponin/CKMB Troponin I 0.023 ng/mL (< 0.028) 11/22/20 19:41 - Assessment/Plan Assessment/Plan: 1. Afib RVR 2. COPD 3. Acute hypoxic respiratory insufficiency. 4. Collapsed left lung, likely from mucous plug, resolved. 5. Severe RV dysfunction. Wean off levophed as BP tolerates Vent support per pulmonary on Abx Prognosis appears guarded
--- NOTE | 2020-11-25 10:29 | RAD ---
PORTABLE CHEST: HISTORY: Pneumonia. COMPARISON: Prior day's exam. FINDINGS: Endotracheal and NG tubes remain in satisfactory position. Right-sided pleural and parenchymal lung changes are stable and the left lower lobe pleural and parenchymal lung changes appear slightly more prominent than on the prior examination. IMPRESSION: Relatively stable appearance to the extensive parenchymal and pleural changes in the right lung. Sli ght worsening in appearance to some of the pleural and parenchymal changes in the left lung base. POS: DISHA
--- NOTE | 2020-11-25 16:17 | PDOC.HOSPP ---
- Subjective Encounter Date: 11/25/20 Encounter Time: 08:45 Subjective: on vent, has sedation on, moves extremities - Objective Vital Signs & Weight: Vital Signs (12 hours) Temp Pulse Resp BP Pulse Ox 11/25/20 14:00 12 11/25/20 12:00 98.0 F 15 11/25/20 11:50 80 11/25/20 10:00 12 11/25/20 08:00 98.7 F 18 100 11/25/20 07:31 79 105/59 L 100 11/25/20 06:00 98.2 F 14 Weight Admit Weight 149 lb Weight 152 lb 8.958 oz Most Recent Monitor Data Heart Rate from ECG 91 NIBP 98/52 NIBP BP-Mean 67 Respiration from ECG 14 SpO2 99 I&O: 11/24/20 11/25/20 11/26/20 06:59 06:59 06:59 Intake Total 4012.5 3241.9 15 Output Total 1808 2080 555 Balance 2204.5 1161.9 -540 Result Diagrams: 11/25/20 06:06 11/25/20 08:11 Additional Labs: Accuchecks 11/25/20 11/25/20 11/24/20 03:56 00:04 21:06 POC Glucose 120 H 115 H 129 H Hospitalist ROS - Medication Medications: Active Medications Generic Name Dose Route Start Last Admin Trade Name Freq PRN Reason Stop Dose Admin Enoxaparin Sodium 70 mg 11/24/20 21:00 11/24/20 20:57 Enoxaparin Sodium 80 Mg/0.8 Ml Syringe SC 70 mg 2100 FRANCHESKA Administration Guaifenesin 600 mg 11/23/20 21:00 11/25/20 09:27 Guaifenesin Sf Soln 200 Mg/10 Ml Udcup PER TUBE 600 mg Q12HR FRANCHESKA Administration Piperacillin Sod/Tazobactam 100 mls @ 200 mls/hr 11/23/20 06:00 11/25/20 14:30 Sod 4.5 gm/ Sodium Chloride IVPB 100 mls Q8HR FRANCHESKA Administration Fentanyl 100 mls @ 0 mls/hr 11/23/20 01:15 11/25/20 01:49 Fentanyl Cadd IV 12/23/20 01:15 100 mls INF FRANCHESKA Administration Protocol Per Protocol Norepinephrine Bitartrate 250 mls @ 0 mls/hr 11/23/20 06:00 11/24/20 08:00 Levophed IVPB 250 mls INF FRANCHESKA Administration Protocol Titrate Amiodarone HCl 450 mg/ 259 mls @ 0 mls/hr 11/23/20 17:15 11/25/20 05:43 Miscellaneous Medication 1 IVPB 259 mls each/ Dextrose/Water INF FRANCHESKA Administration Protocol As Directed Insulin Human Regular 0 units 11/23/20 14:35 11/24/20 11:57 Insulin Regular 300 Units/3 Ml Vial SC 2 unit .MILD SLIDING SCALE PRN Administration Mild Correctional Scale Levothyroxine Sodium 75 mcg 11/24/20 06:00 11/25/20 05:44 Levothyroxine Sodium 75 Mcg Tab PER TUBE 75 mcg 0600 FRANCHESKA Administration Lorazepam 2 mg 11/23/20 01:15 11/25/20 00:07 Lorazepam 2 Mg/Ml Vial SLOW IVP 12/23/20 01:15 2 mg Q1H PRN Administration Breakthrough agitation Pantoprazole Sodium 40 mg 11/23/20 21:00 11/25/20 09:27 Pantoprazole 40 Mg Vial IVP 40 mg Q12HR FRANCHESKA Administration Propofol 1,000 mg 11/23/20 01:15 11/23/20 02:22 Propofol 1,000 Mg/100 Ml Vial IV 12/23/20 01:15 1,000 mg INF PRN Administration TO ACHIEVE GOAL RASS Protocol Sodium Chloride 10 ml 11/23/20 09:00 11/25/20 09:27 Flush - Normal Saline 10 Ml Syringe IVF 10 ml Q12HR FRANCHESKA Administration Hospitalist Exam Vitals: Vital Signs (12 hours) Temp Pulse Resp BP Pulse Ox 11/25/20 14:00 12 11/25/20 12:00 98.0 F 15 11/25/20 11:50 80 11/25/20 10:00 12 11/25/20 08:00 98.7 F 18 100 11/25/20 07:31 79 105/59 L 100 11/25/20 06:00 98.2 F 14 Weight Admit Weight 149 lb Weight 152 lb 8.958 oz Most Recent Monitor Data Heart Rate from ECG 91 NIBP 98/52 NIBP BP-Mean 67 Respiration from ECG 14 SpO2 99 Eye: PERRL, anicteric sclera ENT: no oropharyngeal lesions, moist mucosa Neck: supple, no JVD Heart: RRR, no murmur Respiratory: no wheezes, no rales, rhonchi Gastrointestinal: soft, non-tender, non-distended, normal bowel sounds Extremities: no cyanosis, no edema Neurological: cranial nerve grossly intact, no focal deficits Hosp A/P (1) Acute respiratory failure with hypoxia Code(s): J96.01 - ACUTE RESPIRATORY FAILURE WITH HYPOXIA Status: Acute (2) Sepsis Code(s): A41.9 - SEPSIS, UNSPECIFIED ORGANISM Status: Suspected Qualifiers: Sepsis type: sepsis due to unspecified organism Sepsis acute organ dysfunction status: with acute organ dysfunction Severe sepsis acute organ dysfunction type: acute respiratory failure Acute respiratory failure type: with hypoxia Severe sepsis shock status: without septic shock Qualified Code(s): A41.9 - Sepsis, unspecified organism; R65.20 - Severe sepsis without septic shock; J96.01 - Acute respiratory failure with hypoxia (3) Acute exacerbation of CHF (congestive heart failure) Code(s): I50.9 - HEART FAILURE, UNSPECIFIED Status: Acute Qualifiers: Heart failure type: diastolic Qualified Code(s): I50.33 - Acute on chronic diastolic (congestive) heart failure (4) Atelectasis of left lung Code(s): J98.11 - ATELECTASIS Status: Acute (5) Afib Code(s): I48.91 - UNSPECIFIED ATRIAL FIBRILLATION Status: Chronic Qualifiers: Atrial fibrillation type: paroxysmal Qualified Code(s): I48.0 - Paroxysmal atrial fibrillation (6) DM type 2 (diabetes mellitus, type 2) Status: Chronic Qualifiers: Diabetes mellitus termite treater helper insulin use: without termite treater helper use (7) Pacemaker Code(s): Z95.0 - PRESENCE OF CARDIAC PACEMAKER Status: Chronic (8) Physical deconditioning Code(s): R53.81 - OTHER MALAISE Status: Acute (9) DEMETRA (acute kidney injury) Code(s): N17.9 - ACUTE KIDNEY FAILURE, UNSPECIFIED Status: Acute (10) Moderate protein malnutrition Code(s): E44.0 - MODERATE PROTEIN-CALORIE MALNUTRITION Status: Acute - Plan is on amiodarone drip, full does lovenox both for afib levophed low dose, will likely come off it today continue zosyn, blood cs are -ve, urine has yeast on protonix, synthroid, nebs echo shows ef of 65%, rvsp is 46 hemostable d/w daughter ([phone]) at bedside, gave a full update, she has spoken to earlier. watch for renal function, creatinine around 1.9, still has 35% bands, wbc is 15k
--- NOTE | 2020-11-25 16:17 | PRG ---
DATE OF SERVICE: 11/25/2020 SUBJECTIVE: Ms. Friedman has had no bowel movements overnight. She continued to be ventilated. She has no further distention. The nurse notes she has had no bowel movements, but is starting tube feeds slowly. Treatment is focused on diuresis at this point in time. Nurses noted no bleeding or blood return in NG tube. She does remain on Levophed drip and amiodarone. OBJECTIVE: VITAL SIGNS: Temperature is 98, heart rate 91, blood pressure 98/52, 2080 in and 1161 out. She is intubated. She is sedated. LUNGS: Clear. HEART: Regular rate and rhythm. ABDOMEN: Soft, nontender with no rebound or guarding. She is nondistended, much more improved than when she came in. EXTREMITIES: Trace edema. LABORATORY DATA: White count 15.5, hemoglobin 7.5, platelet count 175, 35% bands. Sodium 134, potassium 3.8, BUN and creatinine 35 and 1.39. Urine culture showed yeast. Blood culture is negative. There has been no stool. IMAGING DATA: CAT scan yesterday showed no bowel dilatation. There is distended calcified gallbladder with large peripheral calcified stone in the fundus of the gallbladder. ASSESSMENT: 1. Respiratory failure and heart failure. 2. Bandemia, hypotension, symptoms of heart failure. There is concern when she first have an ileus for bowel ischemia. There is no sign of that on her imaging studies. She does have a calcified gallstone and a distended gallbladder. I do not think that there is no inflammation around the area and I think that is causing her to be this sick. 3. She is anemic, but has shown no acute signs of hemorrhage. I think this is probably more anemia of chronic disease. 4. LFTs mildly up with bilirubin of 2.6, direct 1.9, AST 50, ALT 21, alkaline phosphatase normal, likely a component of passive congestion here from her heart failure. RECOMMENDATIONS: At this time, we will follow from a distance. If I can be any further assistance in the patient's care, please do not hesitate to contact me. We would defer to primary service. They want to workup the anemia in terms of iron and ordinarily I would recommend a surgical removal of a large calcified gallstone and porcelain gallbladder for cancer risk, but this patient is prohibitive surgical risk at this time and with no signs of acute cholecystitis or cholangitis would not recommend operative intervention. Job ID: [id number]
--- NOTE | 2020-11-25 16:55 | PRG ---
DATE OF SERVICE: 11/25/2020 SUBJECTIVE: The patient was seen and examine at bedside. The patient remains intubated. OBJECTIVE: GENERAL: This is an elderly female, intubated. VITAL SIGNS: Temperature 98.0, pulse 89, respiratory rate 14, and blood pressure 98/52. HEENT: Intubated. CV: S1 and S2 heard. RESPIRATORY: Clear. GASTROINTESTINAL: Abdomen is soft. MUSCULOSKELETAL: 1+ edema. DERMATOLOGIC: No skin rash. NEUROLOGICAL: Intubated. LABORATORY DATA: Potassium 3.8, BUN is 35, and creatinine is 1.39. ASSESSMENT AND PLAN: 1. Acute kidney injury on chronic kidney disease, stage 3, stable. 2. Cardiorenal syndrome. 3. Hyponatremia. 4. Hyperkalemia. 5. Edema. 6. Hypertension. 7. Acidosis. 8. Acute hypoxic respiratory failure. Renal function seems to be stable. Potassium level is stable. We will continue to monitor. Avoid nephrotoxins. Recommend cautious use of diuretics with close monitoring of fluid balance and renal function. We will follow. Job ID: [id number] [facility]
[2020-11-25] MEDS: Enoxaparin Sodium 80 MG/0.8 ML SYRINGE SC SCH (20:43)
[2020-11-26 05:02] LABS: Anion Gap 11 mmol/L (10-20); BUN (Urea Nitrogen) 34 mg/dL (9.8-20.1); Calc. Creatinine Clearance 34 mL/min (70-130); Calcium 7.4 mg/dL (7.8-10.44); Carbon Dioxide 30 mmol/L (23-31); Chloride 94 mmol/L (98-107); Glucose 87 mg/dL (83-110); Potassium 3.4 mmol/L (3.5-5.1); Sodium 132 mmol/L (136-145)
[2020-11-26 05:09] LABS: Band 7 % (5-11); Eosinophils 1 % (0-10); Hemoglobin 7.3 g/dL (12.0-16.0); Hypochromia SLIGHT = 6-15 cells (100X) (0-5/hpf); Lymphocytes 5 % (21-51); MDiff Complete? YES; Mean Corpuscular HGB CONC 33.4 g/dL (32.0-36.0); Mean Corpuscular Hemoglobin 30.4 pg (27.0-31.0); Mean Corpuscular Volume 91.1 fL (78.0-98.0); Monocytes 24 % (0-10); Neutrophil 62 % (42-75); Platelet Count 128 thou/uL (130-400); Platelet Morphology Comment Appears Decreased; RBC Distribution Width 15.9 % (11.5-14.5); Reactive Lymphocytes 1 % (0-10)
[2020-11-26] MEDS: Levothyroxine Sodium 75 MCG TAB PER TUBE SCH (05:48)
[2020-11-26] MEDS: Piperacillin/Tazobactam 4.5 GM in Sodium Chloride 0.9% 100 ML IVPB SCH ×3 (05:49→21:01)
[2020-11-26] MEDS ORDERED: Potassium Chloride 40 MEQ in Sodium Chloride 0.9% 250 ML 250 ML IVPB SCH (07:30)
[2020-11-26] MEDS ORDERED: Furosemide 40 MG/4 ML VIAL SLOW IVP SCH (08:15)
--- NOTE | 2020-11-26 08:24 | PRG ---
DATE OF SERVICE: 11/26/2020 SUBJECTIVE: The patient remains intubated on mechanical ventilation. There have been no acute changes overnight. OBJECTIVE: CURRENT VITAL SIGNS: Heart rate 73, blood pressure , respiratory rate 18, temperature 98.6. Intake for last 24 hours has been 1431, output 1285. HEENT: Unremarkable except for being intubated. NECK: No JVD. LUNGS: Coarse breath sounds, especially on the right. CARDIAC: S1, S2, irregular with a 2/6 holosystolic murmur. ABDOMEN: Soft, nontender. EXTREMITIES: No clubbing or cyanosis. She has muscle wasting throughout. LABORATORY DATA: White blood cell count 11, hematocrit 21.9, and platelet count 128. Sodium 132, potassium 3.4, chloride 94, CO2 of , creatinine 1.3, glucose 87. For some reasons, ABG was not done today. ASSESSMENT: 1. Acute respiratory failure, requiring mechanical ventilation. 2. Right ventricular failure. 3. Status post left lung atelectasis. 4. Overall failure to thrive. PLAN: The patient continues on amiodarone drip. It looks like she has been weaned off the Levophed successfully. Next step will be working towards weaning her off mechanical ventilation. I am somewhat worried by the appearance of her chest film, which indicates she still has profound volume overload. I will give her a dose of diuretics today and see how she does. She continues on empiric antibiotic coverage, although so far, no organism has been identified. Job ID: [id number]
[2020-11-26] MEDS: GUAIFENESIN SF SOLN 200 MG/10 ML UDCUP PER TUBE SCH ×2 (08:50→20:37)
[2020-11-26] MEDS: Pantoprazole 40 MG VIAL IVP SCH ×2 (08:50→20:37)
--- NOTE | 2020-11-26 09:52 | PDOC.CPN ---
- Subjective Date: 11/26/20 Time: 11:55 Interval history: Slight improvement over yesterday Off pressors lasix given today BP stable - Objective Allergies/Adverse Reactions: Allergies Allergy/AdvReac Type Severity Reaction Status Date / Time metformin Allergy Verified 11/22/20 21:35 Visit Medications: Current Medications Albuterol/Ipratropium (Ipratropium/Albuterol Sulfate 3 Ml Neb) 3 ml NEB Q6H PRN PRN Reason: SOB &/or Wheezing Bisacodyl (Bisacodyl 10 Mg Supp) 10 mg OR DAILYPRN PRN PRN Reason: Constipation Dextrose/Water (Dextrose 50% Abboject 50 Ml Syringe) 25 gm SLOW IVP PRN PRN PRN Reason: Hypoglycemia Enoxaparin Sodium (Enoxaparin Sodium 80 Mg/0.8 Ml Syringe) 70 mg SC 2100 FRANCHESKA Last Admin: 11/25/20 20:43 Dose: 70 mg Documented by: Furosemide (Furosemide 40 Mg/4 Ml Vial) 40 mg SLOW IVP NOW FRANCHESKA Stop: 11/26/20 10:00 Last Admin: 11/26/20 08:45 Dose: 40 mg Documented by: Glucagon (Glucagon 1 Mg/Ml Vial) 1 mg IM PRN PRN PRN Reason: Hypoglycemia Guaifenesin (Guaifenesin Sf Soln 200 Mg/10 Ml Udcup) 600 mg PER TUBE Q12HR [facility] Last Admin: 11/26/20 08:50 Dose: 600 mg Documented by: Piperacillin Sod/Tazobactam (Sod 4.5 gm/ Sodium Chloride) 100 mls @ 200 mls/hr IVPB Q8HR FRANCHESKA Last Admin: 11/26/20 05:49 Dose: 100 mls Documented by: Fentanyl (Fentanyl Cadd) 100 mls @ 0 mls/hr IV INF FRANCHESKA; Protocol Stop: 12/23/20 01:15 Last Admin: 11/25/20 01:49 Dose: 100 mls Documented by: Fentanyl Citrate (Fentanyl Bolus) 250 mls @ 0 mls/hr IVPB PRN PRN PRN Reason: Breakthrough pain/agitation Stop: 12/23/20 01:15 Norepinephrine Bitartrate (Levophed) 250 mls @ 0 mls/hr IVPB INF FRANCHESKA; Protocol Last Admin: 11/24/20 08:00 Dose: 250 mls Documented by: Dextrose/Water (D5w) 1,000 mls @ 0 mls/hr IV .Q0M PRN PRN Reason: Hypoglycemia Amiodarone HCl 450 mg/Miscellaneous Medication 1 each/ Dextrose/Water 259 mls @ 0 mls/hr IVPB INF FRANCHESKA; Protocol Last Admin: 11/25/20 20:49 Dose: 259 mls Documented by: Potassium Chloride 40 meq/ (Sodium Chloride) 270 mls @ 67.5 mls/hr IVPB NOW FRANCHESKA Stop: 11/26/20 11:29 Last Admin: 11/26/20 08:30 Dose: 270 mls Documented by: Insulin Human Regular (Insulin Regular 300 Units/3 Ml Vial) 0 units SC .MILD SLIDING SCALE PRN PRN Reason: Mild Correctional Scale Last Admin: 11/24/20 11:57 Dose: 2 unit Documented by: Levothyroxine Sodium (Levothyroxine Sodium 75 Mcg Tab) 75 mcg PER TUBE 0600 [facility] Last Admin: 11/26/20 05:48 Dose: 75 mcg Documented by: Lorazepam (Lorazepam 2 Mg/Ml Vial) 2 mg SLOW IVP Q1H PRN PRN Reason: Breakthrough agitation Stop: 12/23/20 01:15 Last Admin: 11/25/20 22:38 Dose: 2 mg Documented by: Magnesium Hydroxide (Milk Of Magnesia 30 Ml Udcup) 30 ml PO Q8H PRN PRN Reason: Constipation Miscellaneous Medication (Electrolyte Replacement Protocol) 0 each FS ASDIR PRN; Protocol PRN Reason: ELECTROLYTE REPLACEMENT Miscellaneous Medication (Pharmacy To Dose Vancomycin/Zosyn) 1 each IVPB PRN PRN PRN Reason: Pharmacy to dose Morphine Sulfate (Morphine 2 Mg/Ml Vial) 2 mg SLOW IVP Q1H PRN PRN Reason: Breakthrough Pain/Agitation Stop: 12/23/20 01:15 Discontinue Previous Narcotic Pain Medications And Benzodiazepines 1 each FS .ONE FRANCHESKA Stop: 12/23/20 01:15 Pantoprazole Sodium (Pantoprazole 40 Mg Vial) 40 mg IVP Q12HR [facility] Last Admin: 11/26/20 08:50 Dose: 40 mg Documented by: Propofol (Propofol 1,000 Mg/100 Ml Vial) 1,000 mg IV INF PRN; Protocol PRN Reason: TO ACHIEVE GOAL RASS Stop: 12/23/20 01:15 Last Admin: 11/23/20 02:22 Dose: 1,000 mg Documented by: Propofol (Propofol Bolus 1,000 Mg/100 Ml Vial) 20 mg IV Q5MIN PRN PRN Reason: BREAKTHROUGH AGITATION Stop: 12/23/20 01:15 Sodium Chloride (Flush - Normal Saline 10 Ml Syringe) 10 ml IVF Q12HR FRANCHESKA Last Admin: 11/26/20 08:50 Dose: 10 ml Documented by: Sodium Chloride (Flush - Normal Saline 10 Ml Syringe) 10 ml IVF PRN PRN PRN Reason: Saline Flush Vital Signs & Weight: Vital Signs Pulse Resp BP Pulse Ox 11/26/20 07:19 17 100 11/26/20 06:24 73 96/48 L 11/26/20 06:00 15 11/26/20 04:00 12 11/26/20 02:22 77 105/42 L 11/26/20 02:00 14 11/26/20 00:00 12 11/25/20 22:21 94 113/50 L 11/25/20 22:00 12 Admit Weight 149 lb Weight 2.423 oz - Physical Exam General: no apparent distress Neck: no JVD/HJR, no masses Cardiac: irregularly regular Lungs: no wheezes, no rales Abdomen: unremarkable Extremities: 1+ LE edema - Labs Result Diagrams: 11/26/20 04:13 11/26/20 04:13 Troponin/CKMB Troponin I 0.023 ng/mL (< 0.028) 11/22/20 19:41 - Assessment/Plan Assessment/Plan: 1. Afib RVR 2. COPD 3. Acute hypoxic respiratory insufficiency. 4. Collapsed left lung, likely from mucous plug, resolved. 5. Severe RV dysfunction. Pericardial effusion without tamponade 11/26/2020 Slowly improving Lasix IV given after dc levophed EF 60-65% with fluid overload and may be complonent of diastolic dysfunction and should not be from pul HTN primarily on IV amiodarone ?tranfuse 11/25/2020 Wean off levophed as BP tolerates Vent support per pulmonary on Abx Prognosis appears guarded
--- NOTE | 2020-11-26 10:40 | RAD ---
CHEST 1 VIEW: HISTORY: Respiratory distress. FINDINGS: Heart size is enlarged. Endotracheal and NG tubes and pacemaker all unchanged. Opacity over the rig ht chest is slightly diminished. This may just be related to layering effusion related to difference s in recumbency. IMPRESSION: Essentially stable chest. POS: OFF
[2020-11-26] MEDS ORDERED: Fentanyl CADD 100 ML ONE (10:48)
[2020-11-26] MEDS: Amiodarone 450 MG, Admixture Fee 1 EACH in Dextrose 5% in Water 250 ML IVPB SCH (12:32)
--- NOTE | 2020-11-26 13:10 | PRG ---
DATE OF SERVICE: 11/26/2020 SUBJECTIVE: The patient was seen and examined at the bedside. The patient was seen in ICU, remains intubated. She was given a dose of Lasix this morning and daughter was at the bedside and updated. OBJECTIVE: GENERAL: This elderly female is intubated. VITAL SIGNS: Temperature 97.9, pulse 73, respiratory rate 12, and blood pressure 107/50. MUSCULOSKELETAL: 1+ edema. HEENT: Atraumatic normocephalic intubated Neck: Supple Cardiovascular: S1S2 heard, Rate and rhythm regular Respiratory: Clear to auscultation Gastrointestinal: Abdomen is soft Dermatologic : No skin rash Neurologic: intubated. LABORATORY DATA: Hemoglobin is 7.3, potassium 3.4, BUN is 34, and creatinine is 1.3. Sodium 132. ASSESSMENT AND PLAN: 1. Acute injury on chronic kidney disease, stage 3. Renal function seems to be stable. Acute kidney injury secondary to cardiorenal syndrome. 2. Cardiorenal syndrome. Agree with cautious use of diuretics. 3. Hypokalemia, but hyperkalemia on admission, so cautious replacement was recommended with close monitoring. 4. Edema. 5. Acidosis. 6. Acute hypoxic respiratory failure. 7. Anemia. 8. Hyponatremia. Renal function seems to be stable. I will sign off. Please call back with any questions. Continue close monitoring of labs and electrolytes. Job ID: [id number] [facility]
--- NOTE | 2020-11-26 16:09 | PDOC.HOSPP ---
- Subjective Encounter Date: 11/26/20 Encounter Time: 09:00 Subjective: is on vent, minimal sedation, awakens easily, moves toes and clenches fingers in her hand - Objective Vital Signs & Weight: Vital Signs (12 hours) Pulse Resp BP Pulse Ox 11/26/20 15:40 79 11/26/20 12:00 22 H 11/26/20 10:41 75 108/55 L 11/26/20 10:00 16 11/26/20 07:19 17 100 11/26/20 06:24 73 96/48 L 11/26/20 06:00 15 Weight Admit Weight 149 lb Weight 2.423 oz Most Recent Monitor Data Heart Rate from ECG 75 NIBP 107/48 NIBP BP-Mean 67 Respiration from ECG 23 SpO2 100 I&O: 11/25/20 11/26/20 11/27/20 06:59 06:59 06:59 Intake Total 3241.9 1431.5 354 Output Total 2080 1285 440 Balance 1161.9 146.5 -86 Result Diagrams: 11/26/20 04:13 11/26/20 04:13 Additional Labs: Accuchecks 11/26/20 00:43 POC Glucose 94 Hospitalist ROS - Medication Medications: Active Medications Generic Name Dose Route Start Last Admin Trade Name Freq PRN Reason Stop Dose Admin Enoxaparin Sodium 70 mg 11/24/20 21:00 11/25/20 20:43 Enoxaparin Sodium 80 Mg/0.8 Ml Syringe SC 70 mg 2100 FRANCHESKA Administration Guaifenesin 600 mg 11/23/20 21:00 11/26/20 08:50 Guaifenesin Sf Soln 200 Mg/10 Ml Udcup PER TUBE 600 mg Q12HR FRANCHESKA Administration Piperacillin Sod/Tazobactam 100 mls @ 200 mls/hr 11/23/20 06:00 11/26/20 13:46 Sod 4.5 gm/ Sodium Chloride IVPB 100 mls Q8HR FRANCHESKA Administration Fentanyl 100 mls @ 0 mls/hr 11/23/20 01:15 11/25/20 01:49 Fentanyl Cadd IV 12/23/20 01:15 100 mls INF FRANCHESKA Administration Protocol Per Protocol Norepinephrine Bitartrate 250 mls @ 0 mls/hr 11/23/20 06:00 11/24/20 08:00 Levophed IVPB 250 mls INF FRANCHESKA Administration Protocol Titrate Amiodarone HCl 450 mg/ 259 mls @ 0 mls/hr 11/23/20 17:15 11/26/20 12:32 Miscellaneous Medication 1 IVPB 259 mls each/ Dextrose/Water INF FRANCHESKA Administration Protocol As Directed Insulin Human Regular 0 units 11/23/20 14:35 11/24/20 11:57 Insulin Regular 300 Units/3 Ml Vial SC 2 unit .MILD SLIDING SCALE PRN Administration Mild Correctional Scale Levothyroxine Sodium 75 mcg 11/24/20 06:00 11/26/20 05:48 Levothyroxine Sodium 75 Mcg Tab PER TUBE 75 mcg 0600 FRANCHESKA Administration Lorazepam 2 mg 11/23/20 01:15 11/25/20 22:38 Lorazepam 2 Mg/Ml Vial SLOW IVP 12/23/20 01:15 2 mg Q1H PRN Administration Breakthrough agitation Pantoprazole Sodium 40 mg 11/23/20 21:00 11/26/20 08:50 Pantoprazole 40 Mg Vial IVP 40 mg Q12HR FRANCHESKA Administration Propofol 1,000 mg 11/23/20 01:15 11/23/20 02:22 Propofol 1,000 Mg/100 Ml Vial IV 12/23/20 01:15 1,000 mg INF PRN Administration TO ACHIEVE GOAL RASS Protocol Sodium Chloride 10 ml 11/23/20 09:00 11/26/20 08:50 Flush - Normal Saline 10 Ml Syringe IVF 10 ml Q12HR FRANCHESKA Administration Hospitalist Exam Vitals: Vital Signs (12 hours) Pulse Resp BP Pulse Ox 11/26/20 15:40 79 11/26/20 12:00 22 H 11/26/20 10:41 75 108/55 L 11/26/20 10:00 16 11/26/20 07:19 17 100 11/26/20 06:24 73 96/48 L 11/26/20 06:00 15 Weight Admit Weight 149 lb Weight 2.423 oz Most Recent Monitor Data Heart Rate from ECG 75 NIBP 107/48 NIBP BP-Mean 67 Respiration from ECG 23 SpO2 100 General Appearance: ill appearing Eye: PERRL, anicteric sclera ENT: no oropharyngeal lesions, moist mucosa Neck: supple, no JVD Heart: RRR, no murmur Respiratory: no wheezes, no rales, rhonchi Gastrointestinal: soft, non-tender, non-distended, normal bowel sounds Extremities: no cyanosis, no edema Neurological: cranial nerve grossly intact, no focal deficits Hosp A/P (1) Acute respiratory failure with hypoxia Code(s): J96.01 - ACUTE RESPIRATORY FAILURE WITH HYPOXIA Status: Acute (2) Sepsis Code(s): A41.9 - SEPSIS, UNSPECIFIED ORGANISM Status: Acute Qualifiers: Sepsis type: sepsis due to unspecified organism Sepsis acute organ dysfunction status: with acute organ dysfunction Severe sepsis acute organ dysfunction type: acute respiratory failure Acute respiratory failure type: with hypoxia Severe sepsis shock status: without septic shock Qualified Code(s): A41.9 - Sepsis, unspecified organism; R65.20 - Severe sepsis without septic shock; J96.01 - Acute respiratory failure with hypoxia (3) Acute exacerbation of CHF (congestive heart failure) Code(s): I50.9 - HEART FAILURE, UNSPECIFIED Status: Acute Qualifiers: Heart failure type: diastolic Qualified Code(s): I50.33 - Acute on chronic diastolic (congestive) heart failure (4) Atelectasis of left lung Code(s): J98.11 - ATELECTASIS Status: Acute (5) Afib Code(s): I48.91 - UNSPECIFIED ATRIAL FIBRILLATION Status: Chronic Qualifiers: Atrial fibrillation type: paroxysmal Qualified Code(s): I48.0 - Paroxysmal atrial fibrillation (6) DM type 2 (diabetes mellitus, type 2) Status: Chronic Qualifiers: Diabetes mellitus retirement insulin use: without retirement use (7) Pacemaker Code(s): Z95.0 - PRESENCE OF CARDIAC PACEMAKER Status: Chronic (8) Physical deconditioning Code(s): R53.81 - OTHER MALAISE Status: Acute (9) DEMETRA (acute kidney injury) Code(s): N17.9 - ACUTE KIDNEY FAILURE, UNSPECIFIED Status: Acute (10) Moderate protein malnutrition Code(s): E44.0 - MODERATE PROTEIN-CALORIE MALNUTRITION Status: Acute (11) UTI (urinary tract infection) Status: Acute Qualifiers: Urinary tract infection type: acute cystitis Hematuria presence: without hematuria Qualified Code(s): N30.00 - Acute cystitis without hematuria - Plan is on amiodarone drip, full dose lovenox both for afib add micafungin for c.krusei in her urine continue zosyn, blood cs are -ve on protonix, synthroid, nebs echo shows ef of 65%, rvsp is 46 hemostable d/w daughter ([phone]) at bedside, gave a full update, she has spoken to earlier 11/25, 11/26. is getting gentle diuresis, renal function holding up prognosis guarded, family is aware
[2020-11-26] MEDS: Micafungin 100 MG in Sodium Chloride 0.9% 100 ML IVPB SCH (17:28)
[2020-11-26] MEDS: Enoxaparin Sodium 80 MG/0.8 ML SYRINGE SC SCH (20:37)
[2020-11-26] MEDS: Insulin Regular 300 UNITS/3 ML VIAL SC PRN (21:02)
[2020-11-27] MEDS ORDERED: Fentanyl CADD 100 ML ONE ×2 (01:30→16:40)
[2020-11-27] MEDS: Amiodarone 450 MG, Admixture Fee 1 EACH in Dextrose 5% in Water 250 ML IVPB SCH ×2 (01:40→16:02)
[2020-11-27] MEDS: Lorazepam 2 MG/ML VIAL SLOW IVP PRN ×2 (02:58→13:51)
[2020-11-27 03:28] LABS: Hemoglobin 5.6 g/dL (12.0-16.0); Mean Corpuscular HGB CONC 33.7 g/dL (32.0-36.0); Mean Corpuscular Hemoglobin 29.9 pg (27.0-31.0); Mean Corpuscular Volume 88.8 fL (78.0-98.0); Mean Platelet Volume 7.1 fL (7.4-10.4); Platelet Count 137 thou/uL (130-400); RBC Distribution Width 15.8 % (11.5-14.5); Red Blood Cell (RBC) Count 1.86 mill/uL (4.20-5.40); White Blood Cell (WBC) Count 12.6 thou/uL (4.8-10.8)
[2020-11-27 03:34] LABS: Anion Gap 13 mmol/L (10-20); BUN (Urea Nitrogen) 33 mg/dL (9.8-20.1); Calc. Creatinine Clearance 0 mL/min (70-130); Calcium 7.7 mg/dL (7.8-10.44); Carbon Dioxide 29 mmol/L (23-31); Chloride 96 mmol/L (98-107); Glucose 98 mg/dL (83-110); Potassium 3.2 mmol/L (3.5-5.1); Sodium 135 mmol/L (136-145)
[2020-11-27 03:39] LABS: Eosinophils 2 % (0-10); Lymphocytes 13 % (21-51); MDiff Complete? YES; Monocytes 9 % (0-10); Neutrophil 76 % (42-75); Platelet Morphology Comment Appears Adequate
[2020-11-27] MEDS: Piperacillin/Tazobactam 4.5 GM in Sodium Chloride 0.9% 100 ML IVPB SCH ×3 (05:09→21:00)
[2020-11-27] MEDS: Levothyroxine Sodium 75 MCG TAB PER TUBE SCH (05:10)
[2020-11-27] MEDS: Insulin Regular 300 UNITS/3 ML VIAL SC PRN ×2 (05:25→21:28)
--- NOTE | 2020-11-27 07:40 | RAD ---
XR Chest 1 View Portable History: Pneumonia Comparison: Radiograph prior day Findings: Endotracheal tube tip at the clavicular level. Enteric tube tip below diaphragm although ou t of field of view. Heart size is enlarged. Large right and moderate left layering pleural effusions with compressive atelectasis both lung bases. No acute osseous abnormality. Impression: Similar examination of the chest.
--- NOTE | 2020-11-27 08:05 | PRG ---
DATE OF SERVICE: 11/27/2020 35 minutes critical care time. SUBJECTIVE: The patient remains intubated on mechanical ventilation. OBJECTIVE: VITAL SIGNS: Temperature 99.5, pulse 78, blood pressure 89/38, 24 hour intake 2819, output 1225. HEENT: Unremarkable. NECK: No JVD. LUNGS: Diminished breath sounds in right base. CARDIOVASCULAR: S1, S2. Irregular. ABDOMEN: Soft and nontender to palpation. EXTREMITIES: No clubbing, cyanosis, or edema. Nothing that looks like a hematoma. LABORATORY DATA: White blood cell count 12.6, hemoglobin 5.6, hematocrit 16.5, and platelet count 137. Sodium 135, potassium 3.2, chloride 96, CO2 of 29, BUN 33, creatinine 1.4, glucose 98. X-ray continued to show layering effusion on the right. ASSESSMENT: 1. Anemia-possibly due to blood loss, but origin not clear. 2. Acute hypoxic respiratory failure requiring mechanical ventilation. 3. Right ventricular failure. 4. Status post left lung atelectasis. 5. Overall failure to thrive. PLAN: 1. The patient will be given 2 units of blood and her hemoglobin will be rechecked this afternoon. She really did not respond to the diuretics that were given yesterday. 2. She continues to need vasopressors and I will be anxious to see, if that changes when she is given blood back. 3. She may require endoscopy and further workup blood loss. 4. The patient's overall clinical course is not turning in a good direction. I do not think she will survive this hospitalization. Job ID: [id number]
[2020-11-27 08:16] LABS: Actual Bicarbonate (HCO3a) 26.6 mEq/L (22-28); Base Excess (BEa) 4.5 mEq/L (-2.0 to +3.0); CO2 Tension 29.5 mmHg (35.0-45.0); Calcium, Ionized (arterial) 1.04 mmol/L (1.12-1.30); Carboxyhemoglobin (COHb) 0.9 gm% (0.0-3.0); Hemoglobin (Hb) 7.8 g/dL (12.0-16.0); O2 Tension (PaO2), arterial 92.4 mmHg (> 60.0); Potassium - ABG Lab 3.05 mmol/L (3.70-5.30)
[2020-11-27 08:21] LABS: Puncture Site RBA; pH, Arterial 7.57 (7.35-7.45)
[2020-11-27 08:22] LABS: ALV-art Gradient 120.275 mmHg (0-20)
[2020-11-27] MEDS: Pantoprazole 40 MG VIAL IVP SCH ×2 (10:27→20:57)
[2020-11-27] MEDS: Potassium Chloride 20 MEQ in Premix Bag 1 BAG IVPB SCH ×2 (10:27→10:36)
[2020-11-27] MEDS: GUAIFENESIN SF SOLN 200 MG/10 ML UDCUP PER TUBE SCH ×2 (10:36→20:57)
[2020-11-27 12:28] LABS: #Eosinphils 0.1 thou/uL (0.0-0.7); #Lymphocytes 1.1 thou/uL (1.20-3.40); #Monocytes 1.2 thou/uL (0.11-0.59); #Neutrophils 7.3 thou/uL (1.40-6.50); %Basophils 0.3 % (0.0-1.0); %Eosinophils 0.6 % (0.0-10.0); %Lymphocytes 11.2 % (21.0-51.0); %Monocytes 12.8 % (0.0-10.0); %Neutrophils 75.1 % (42.0-75.0); Hemoglobin 8.9 g/dL (12.0-16.0); Mean Corpuscular HGB CONC 33.4 g/dL (32.0-36.0); Mean Corpuscular Hemoglobin 29.8 pg (27.0-31.0); Mean Corpuscular Volume 89.1 fL (78.0-98.0); Mean Platelet Volume 7.7 fL (7.4-10.4); Platelet Count 85 thou/uL (130-400); RBC Distribution Width 15.4 % (11.5-14.5); Red Blood Cell (RBC) Count 2.98 mill/uL (4.20-5.40); White Blood Cell (WBC) Count 9.7 thou/uL (4.8-10.8)
[2020-11-27 12:39] LABS: Glucose 139 mg/dL (83-110)
--- NOTE | 2020-11-27 14:32 | PRG ---
DATE OF SERVICE: 11/27/2020 SUBJECTIVE: Ms. William had a drop in hemoglobin. There was concern for possible GI bleeding. We talked with the nurse. She had one brown stool yesterday. Her hemoglobin was 5.6 this morning, it had been 7.3 yesterday. She received a unit of blood and hemoglobin is now 8.9. That was likely artificially low hemoglobin. OBJECTIVE: VITAL SIGNS: blood pressure 88/43, pulse 97 ABDOMEN: Soft and nontender. LABORATORY DATA: BUN and creatinine are 33 and 1.4. ASSESSMENT: No signs of GI bleeding with a brown bowel movement earlier and hemoglobin has come back up a gram higher than it was yesterday. The low hemoglobin this morning is probably artifactual. RECOMMENDATIONS: Continue ulcer prophylaxis. Again, we will sign off. GI Service will be available 24 hours a day for vaccines solutions specialist if there becomes any signs of overt bleeding or we can be of any further assistance in the patient's care. Job ID: [id number]
--- NOTE | 2020-11-27 14:40 | PDOC.HOSPP ---
- Subjective Encounter Date: 11/27/20 Encounter Time: 09:00 Subjective: is on vent, opens eyes to stimuli is on sedation and is recieving one unit prbc - Objective Vital Signs & Weight: Vital Signs (12 hours) Pulse Resp Pulse Ox 11/27/20 10:00 20 11/27/20 09:11 77 11/27/20 08:00 21 H 100 11/27/20 06:00 12 11/27/20 04:56 79 11/27/20 04:00 12 Weight Admit Weight 149 lb Weight 2.543 oz Most Recent Monitor Data Heart Rate from ECG 96 NIBP 100/49 NIBP BP-Mean 66 Respiration from ECG 3 SpO2 98 I&O: 11/26/20 11/27/20 11/28/20 06:59 06:59 06:59 Intake Total 1431.5 2819.2 813.5 Output Total 1285 1225 225 Balance 146.5 1594.2 588.5 Result Diagrams: 11/27/20 12:09 11/27/20 12:09 Additional Labs: Accuchecks 11/27/20 11/27/20 11/26/20 05:20 00:41 20:57 POC Glucose 163 H 97 152 H 11/26/20 11/25/20 12:37 21:06 POC Glucose 122 H 97 Hospitalist ROS - Medication Medications: Active Medications Generic Name Dose Route Start Last Admin Trade Name Freq PRN Reason Stop Dose Admin Guaifenesin 600 mg 11/23/20 21:00 11/27/20 10:36 Guaifenesin Sf Soln 200 Mg/10 Ml Udcup PER TUBE 600 mg Q12HR FRANCHESKA Administration Piperacillin Sod/Tazobactam 100 mls @ 200 mls/hr 11/23/20 06:00 11/27/20 13:51 Sod 4.5 gm/ Sodium Chloride IVPB 100 mls Q8HR FRANCHESKA Administration Fentanyl 100 mls @ 0 mls/hr 11/23/20 01:15 11/25/20 01:49 Fentanyl Cadd IV 12/23/20 01:15 100 mls INF FRANCHESKA Administration Protocol Per Protocol Norepinephrine Bitartrate 250 mls @ 0 mls/hr 11/23/20 06:00 11/24/20 08:00 Levophed IVPB 250 mls INF FRANCHESKA Administration Protocol Titrate Amiodarone HCl 450 mg/ 259 mls @ 0 mls/hr 11/23/20 17:15 11/27/20 01:40 Miscellaneous Medication 1 IVPB 259 mls each/ Dextrose/Water INF FRANCHESKA Administration Protocol As Directed Micafungin Sodium 100 mg/ 100 mls @ 100 mls/hr 11/26/20 17:00 11/26/20 17:28 Sodium Chloride IVPB 100 mls Q24HR FRANCHESKA Administration Insulin Human Regular 0 units 11/23/20 14:35 11/27/20 05:25 Insulin Regular 300 Units/3 Ml Vial SC 2 unit .MILD SLIDING SCALE PRN Administration Mild Correctional Scale Levothyroxine Sodium 75 mcg 11/24/20 06:00 11/27/20 05:10 Levothyroxine Sodium 75 Mcg Tab PER TUBE 75 mcg 0600 FRANCHESKA Administration Lorazepam 2 mg 11/23/20 01:15 11/27/20 13:51 Lorazepam 2 Mg/Ml Vial SLOW IVP 12/23/20 01:15 2 mg Q1H PRN Administration Breakthrough agitation Pantoprazole Sodium 40 mg 11/23/20 21:00 11/27/20 10:27 Pantoprazole 40 Mg Vial IVP 40 mg Q12HR FRANCHESKA Administration Propofol 1,000 mg 11/23/20 01:15 11/23/20 02:22 Propofol 1,000 Mg/100 Ml Vial IV 12/23/20 01:15 1,000 mg INF PRN Administration TO ACHIEVE GOAL RASS Protocol Sodium Chloride 10 ml 11/23/20 09:00 11/27/20 10:23 Flush - Normal Saline 10 Ml Syringe IVF 10 ml Q12HR FRANCHESKA Administration Hospitalist Exam Vitals: Vital Signs (12 hours) Pulse Resp Pulse Ox 11/27/20 10:00 20 11/27/20 09:11 77 11/27/20 08:00 21 H 100 11/27/20 06:00 12 11/27/20 04:56 79 11/27/20 04:00 12 Weight Admit Weight 149 lb Weight 2.543 oz Most Recent Monitor Data Heart Rate from ECG 96 NIBP 100/49 NIBP BP-Mean 66 Respiration from ECG 3 SpO2 98 General Appearance: ill appearing Eye: PERRL, anicteric sclera ENT: no oropharyngeal lesions, dry oral mucosa Neck: supple, no JVD Heart: RRR, no murmur Respiratory: no wheezes, no rales, rhonchi Gastrointestinal: soft, non-tender, non-distended, normal bowel sounds Extremities: no cyanosis, no edema Neurological: cranial nerve grossly intact, no focal deficits Hosp A/P (1) Acute respiratory failure with hypoxia Code(s): J96.01 - ACUTE RESPIRATORY FAILURE WITH HYPOXIA Status: Acute (2) Sepsis Code(s): A41.9 - SEPSIS, UNSPECIFIED ORGANISM Status: Acute Qualifiers: Sepsis type: sepsis due to unspecified organism Sepsis acute organ dysfunction status: with acute organ dysfunction Severe sepsis acute organ dysfunction type: acute respiratory failure Acute respiratory failure type: with hypoxia Severe sepsis shock status: without septic shock Qualified Code(s): A41.9 - Sepsis, unspecified organism; R65.20 - Severe sepsis without septic shock; J96.01 - Acute respiratory failure with hypoxia (3) Acute exacerbation of CHF (congestive heart failure) Code(s): I50.9 - HEART FAILURE, UNSPECIFIED Status: Acute Qualifiers: Heart failure type: diastolic Qualified Code(s): I50.33 - Acute on chronic diastolic (congestive) heart failure (4) Atelectasis of left lung Code(s): J98.11 - ATELECTASIS Status: Acute (5) Afib Code(s): I48.91 - UNSPECIFIED ATRIAL FIBRILLATION Status: Chronic Qualifiers: Atrial fibrillation type: paroxysmal Qualified Code(s): I48.0 - Paroxysmal atrial fibrillation (6) DM type 2 (diabetes mellitus, type 2) Status: Chronic Qualifiers: Diabetes mellitus penitentiary insulin use: without penitentiary use (7) Pacemaker Code(s): Z95.0 - PRESENCE OF CARDIAC PACEMAKER Status: Chronic (8) Physical deconditioning Code(s): R53.81 - OTHER MALAISE Status: Acute (9) DEMETRA (acute kidney injury) Code(s): N17.9 - ACUTE KIDNEY FAILURE, UNSPECIFIED Status: Acute (10) Moderate protein malnutrition Code(s): E44.0 - MODERATE PROTEIN-CALORIE MALNUTRITION Status: Acute (11) UTI (urinary tract infection) Status: Acute Qualifiers: Urinary tract infection type: acute cystitis Hematuria presence: without hematuria Qualified Code(s): N30.00 - Acute cystitis without hematuria - Plan Had low Hb this am around 5g and got a unit or prbc, repeat showed Hb of 8g. is on amiodarone drip, full dose lovenox both for afib micafungin for c.krusei in her urine continue zosyn, blood cs are -ve on protonix, synthroid, nebs echo shows ef of 65%, rvsp is 46 hemostable d/w daughter ([phone]) at bedside, gave a full update, she has spoken to earlier 11/25, at bedside on 11/26. is getting gentle diuresis, renal function holding up prognosis guarded, family is aware
[2020-11-27] MEDS: Micafungin 100 MG in Sodium Chloride 0.9% 100 ML IVPB SCH (16:54)
--- NOTE | 2020-11-27 16:56 | PDOC.CPN ---
- Subjective Date: 11/27/20 Time: 11:45 Interval history: Remains in afib but rate controlled. Sedated and intubated. - Review of Systems ROS unobtainable: due to endotracheal tube - Objective Allergies/Adverse Reactions: Allergies Allergy/AdvReac Type Severity Reaction Status Date / Time metformin Allergy Verified 11/22/20 21:35 Visit Medications: Current Medications Albuterol/Ipratropium (Ipratropium/Albuterol Sulfate 3 Ml Neb) 3 ml NEB Q6H PRN PRN Reason: SOB &/or Wheezing Bisacodyl (Bisacodyl 10 Mg Supp) 10 mg HI DAILYPRN PRN PRN Reason: Constipation Dextrose/Water (Dextrose 50% Abboject 50 Ml Syringe) 25 gm SLOW IVP PRN PRN PRN Reason: Hypoglycemia Glucagon (Glucagon 1 Mg/Ml Vial) 1 mg IM PRN PRN PRN Reason: Hypoglycemia Guaifenesin (Guaifenesin Sf Soln 200 Mg/10 Ml Udcup) 600 mg PER TUBE Q12HR FRANCHESKA Last Admin: 11/27/20 10:36 Dose: 600 mg Documented by: Piperacillin Sod/Tazobactam (Sod 4.5 gm/ Sodium Chloride) 100 mls @ 200 mls/hr IVPB Q8HR FRANCHESKA Last Admin: 11/27/20 13:51 Dose: 100 mls Documented by: Fentanyl (Fentanyl Cadd) 100 mls @ 0 mls/hr IV INF FRANCHESKA; Protocol Stop: 12/23/20 01:15 Last Admin: 11/25/20 01:49 Dose: 100 mls Documented by: Fentanyl Citrate (Fentanyl Bolus) 250 mls @ 0 mls/hr IVPB PRN PRN PRN Reason: Breakthrough pain/agitation Stop: 12/23/20 01:15 Norepinephrine Bitartrate (Levophed) 250 mls @ 0 mls/hr IVPB INF FRANCHESKA; Protocol Last Admin: 11/24/20 08:00 Dose: 250 mls Documented by: Dextrose/Water (D5w) 1,000 mls @ 0 mls/hr IV .Q0M PRN PRN Reason: Hypoglycemia Amiodarone HCl 450 mg/Miscellaneous Medication 1 each/ Dextrose/Water 259 mls @ 0 mls/hr IVPB INF FRANCHESAK; Protocol Last Admin: 11/27/20 16:02 Dose: 259 mls Documented by: Micafungin Sodium 100 mg/ (Sodium Chloride) 100 mls @ 100 mls/hr IVPB Q24HR [facility] Last Admin: 11/27/20 16:54 Dose: 100 mls Documented by: Insulin Human Regular (Insulin Regular 300 Units/3 Ml Vial) 0 units SC .MILD SLIDING SCALE PRN PRN Reason: Mild Correctional Scale Last Admin: 11/27/20 05:25 Dose: 2 unit Documented by: Levothyroxine Sodium (Levothyroxine Sodium 75 Mcg Tab) 75 mcg PER TUBE 0600 [facility] Last Admin: 11/27/20 05:10 Dose: 75 mcg Documented by: Lorazepam (Lorazepam 2 Mg/Ml Vial) 2 mg SLOW IVP Q1H PRN PRN Reason: Breakthrough agitation Stop: 12/23/20 01:15 Last Admin: 11/27/20 13:51 Dose: 2 mg Documented by: Magnesium Hydroxide (Milk Of Magnesia 30 Ml Udcup) 30 ml PO Q8H PRN PRN Reason: Constipation Miscellaneous Medication (Electrolyte Replacement Protocol) 0 each FS ASDIR PRN; Protocol PRN Reason: ELECTROLYTE REPLACEMENT Miscellaneous Medication (Pharmacy To Dose Vancomycin/Zosyn) 1 each IVPB PRN PRN PRN Reason: Pharmacy to dose Morphine Sulfate (Morphine 2 Mg/Ml Vial) 2 mg SLOW IVP Q1H PRN PRN Reason: Breakthrough Pain/Agitation Stop: 12/23/20 01:15 Discontinue Previous Narcotic Pain Medications And Benzodiazepines 1 each FS .ONE [facility] Stop: 12/23/20 01:15 Pantoprazole Sodium (Pantoprazole 40 Mg Vial) 40 mg IVP Q12HR [facility] Last Admin: 11/27/20 10:27 Dose: 40 mg Documented by: Propofol (Propofol 1,000 Mg/100 Ml Vial) 1,000 mg IV INF PRN; Protocol PRN Reason: TO ACHIEVE GOAL RASS Stop: 12/23/20 01:15 Last Admin: 11/23/20 02:22 Dose: 1,000 mg Documented by: Propofol (Propofol Bolus 1,000 Mg/100 Ml Vial) 20 mg IV Q5MIN PRN PRN Reason: BREAKTHROUGH AGITATION Stop: 12/23/20 01:15 Sodium Chloride (Flush - Normal Saline 10 Ml Syringe) 10 ml IVF Q12HR [facility] Last Admin: 11/27/20 10:23 Dose: 10 ml Documented by: Sodium Chloride (Flush - Normal Saline 10 Ml Syringe) 10 ml IVF PRN PRN PRN Reason: Saline Flush Vital Signs & Weight: Vital Signs Pulse Resp Pulse Ox 11/27/20 16:00 20 11/27/20 14:48 84 11/27/20 14:00 18 11/27/20 12:00 12 11/27/20 10:00 20 11/27/20 09:11 77 11/27/20 08:00 21 H 100 11/27/20 06:00 12 11/27/20 04:56 79 Admit Weight 149 lb Weight 2.543 oz - Physical Exam General: other (S/I) HEENT: mucus membranes moist Neck: supple neck Cardiac: irregularly regular Lungs: decreased breath sounds Neuro: grossly intact Abdomen: active bowel sounds Extremities: no edema Skin: clear Musculoskeletal: normal range of motion - Labs Result Diagrams: 11/27/20 12:09 11/27/20 12:09 Troponin/CKMB Troponin I 0.023 ng/mL (< 0.028) 11/22/20 19:41 - Telemetry Supraventricular conduction: atrial fibrillation - Assessment/Plan Assessment/Plan: 1. Afib RVR, now rate controlled. 2. COPD 3. Acute hypoxic respiratory insufficiency. 4. Collapsed left lung, likely from mucous plug, resolved. 5. Severe RV dysfunction. 6. Anemia PLAN: - Currently rte controlled in the 's. - Continue amiodarone drip - Her hgb increased to 8.9 after 1 unit of PRBC from 5, agree with GI likely falsely low Hgb. Recheck daily for now.
[2020-11-28] MEDS: Insulin Regular 300 UNITS/3 ML VIAL SC PRN ×5 (04:38→23:34)
[2020-11-28] MEDS: Piperacillin/Tazobactam 4.5 GM in Sodium Chloride 0.9% 100 ML IVPB SCH ×3 (05:06→21:23)
[2020-11-28] MEDS: Levothyroxine Sodium 75 MCG TAB PER TUBE SCH (05:06)
[2020-11-28 05:22] LABS: #Eosinphils 0.1 thou/uL (0.0-0.7); #Lymphocytes 1.1 thou/uL (1.20-3.40); #Monocytes 0.9 thou/uL (0.11-0.59); #Neutrophils 7.2 thou/uL (1.40-6.50); %Basophils 0.5 % (0.0-1.0); %Eosinophils 0.6 % (0.0-10.0); %Lymphocytes 11.8 % (21.0-51.0); %Monocytes 10.1 % (0.0-10.0); Hemoglobin 8.9 g/dL (12.0-16.0); Mean Corpuscular HGB CONC 33.6 g/dL (32.0-36.0); Mean Corpuscular Volume 89.1 fL (78.0-98.0); Mean Platelet Volume 8.3 fL (7.4-10.4); Platelet Count 81 thou/uL (130-400); RBC Distribution Width 15.6 % (11.5-14.5); Red Blood Cell (RBC) Count 2.98 mill/uL (4.20-5.40); White Blood Cell (WBC) Count 9.3 thou/uL (4.8-10.8)
[2020-11-28 05:26] LABS: Anion Gap 11 mmol/L (10-20); BUN (Urea Nitrogen) 35 mg/dL (9.8-20.1); Calc. Creatinine Clearance 0 mL/min (70-130); Calcium 7.5 mg/dL (7.8-10.44); Carbon Dioxide 28 mmol/L (23-31); Chloride 97 mmol/L (98-107); Glucose 171 mg/dL (83-110); Potassium 3.3 mmol/L (3.5-5.1); Sodium 133 mmol/L (136-145)
[2020-11-28] MEDS ORDERED: Fentanyl CADD 100 ML ONE ×2 (06:16→21:54)
[2020-11-28] MEDS: Fentanyl CADD 100 ML IV SCH (06:26)
[2020-11-28] MEDS ORDERED: Potassium Chloride 40 MEQ in Sodium Chloride 0.9% 250 ML 250 ML IV SCH (06:30)
[2020-11-28 07:32] LABS: Actual Bicarbonate (HCO3a) 26.7 mEq/L (22-28); Base Excess (BEa) 4.7 mEq/L (-2.0 to +3.0); CO2 Tension 29.8 mmHg (35.0-45.0); Calcium, Ionized (arterial) 1.02 mmol/L (1.12-1.30); Carboxyhemoglobin (COHb) 0.9 gm% (0.0-3.0); Hemoglobin (Hb) 9.2 g/dL (12.0-16.0); O2 Tension (PaO2), arterial 82.4 mmHg (> 60.0); Potassium - ABG Lab 3.08 mmol/L (3.70-5.30)
[2020-11-28 07:33] LABS: Puncture Site RRA; pH, Arterial 7.57 (7.35-7.45)
--- NOTE | 2020-11-28 08:00 | PRG ---
DATE OF SERVICE: 11/28/2020 Thirty five minutes of critical care time. SUBJECTIVE: The patient remains intubated on mechanical ventilation. She is having intermittent problems with her pacemaker capturing. OBJECTIVE: VITAL SIGNS: Her temperature is 99.9, pulse 84, blood pressure 108/42. Twenty hour intake 2084, output 770. HEENT: Unremarkable. NECK: No adenopathy or JVD. LUNGS: Clear anteriorly. CARDIOVASCULAR: S1 and S2. Regular. ABDOMEN: Soft and nontender. EXTREMITIES: No clubbing, cyanosis, or edema. LABORATORY DATA: White blood cell count 9.3, hemoglobin 8.9, hematocrit 26.6, and platelet count 81. ABG pending. Sodium 133, potassium 3.3, chloride 97, CO2 of 28, BUN 35, creatinine 1.4, glucose 171. X-ray showed some clearing, especially on the right. ASSESSMENT: 1. Acute hypoxic respiratory failure, requiring mechanical ventilation. 2. Right ventricular failure. 3. Anemia which is probably due to blood loss at some point, but the order is not clear. 4. Thrombocytopenia. 5. Status post left lung atelectasis. 6. Overall failure to thrive. 7. Intermittent bradycardia. PLAN: 1. We will try to wean her ventilator even further today. 2. Cardiology will need to look at her pacemaker. 3. Continue tube feeds. 4. Replace potassium. 5. Continue to monitor closely. Job ID: [id number]
--- NOTE | 2020-11-28 08:10 | RAD ---
CHEST 1 VIEW: Date: 11/28/2020 COMPARISON: 11/27/2020. HISTORY: Pneumonia. FINDINGS: Redemonstration of an endotracheal tube, nasogastric tube, and left-sided transvenous pacemaker. Ther e is evidence of bilateral pleural effusions with additional dense consolidation of lung parenchyma. No pneumothorax. IMPRESSION: No significant interval change. POS: PPP
[2020-11-28] MEDS: Pantoprazole 40 MG GRANULES PACKET PER TUBE SCH (08:59)
[2020-11-28] MEDS: GUAIFENESIN SF SOLN 200 MG/10 ML UDCUP PER TUBE SCH ×2 (12:26→20:17)
[2020-11-28] MEDS: Furosemide 20 MG/2 ML VIAL SLOW IVP SCH (14:25)
--- NOTE | 2020-11-28 16:06 | PDOC.HOSPP ---
- Subjective Encounter Date: 11/28/20 Encounter Time: 09:00 Subjective: awakens easily, on vent and sedated moves all extremities daughter at bedside - Objective Vital Signs & Weight: Vital Signs (12 hours) Temp Pulse Resp BP Pulse Ox 11/28/20 14:24 80 110/50 L 11/28/20 14:00 20 11/28/20 12:00 98.5 F 18 11/28/20 10:20 79 110/58 L 11/28/20 10:00 11 L 11/28/20 08:00 28 H 99 11/28/20 07:00 98.4 F 11/28/20 06:51 89 102/42 L 11/28/20 06:00 12 Weight Admit Weight 149 lb Weight 153 lb 0.013 oz Most Recent Monitor Data Heart Rate from ECG 78 NIBP 107/53 NIBP BP-Mean 71 Respiration from ECG 18 SpO2 100 I&O: 11/27/20 11/28/20 11/29/20 06:59 06:59 06:59 Intake Total 2819.2 2085.4 470 Output Total 1225 770 335 Balance 1594.2 1315.4 135 Result Diagrams: 11/28/20 04:30 11/28/20 04:30 Additional Labs: Accuchecks 11/28/20 11/28/20 11/27/20 12:10 10:13 20:25 POC Glucose 154 H 127 H 230 H Hospitalist ROS - Medication Medications: Active Medications Generic Name Dose Route Start Last Admin Trade Name Freq PRN Reason Stop Dose Admin Furosemide 20 mg 11/28/20 14:00 11/28/20 14:25 Furosemide 20 Mg/2 Ml Vial SLOW IVP 20 mg 0600,1400 FRANCHESKA Administration Guaifenesin 600 mg 11/23/20 21:00 11/28/20 12:26 Guaifenesin Sf Soln 200 Mg/10 Ml Udcup PER TUBE Not Given Q12HR FRANCHESKA Piperacillin Sod/Tazobactam 100 mls @ 200 mls/hr 11/23/20 06:00 11/28/20 14:24 Sod 4.5 gm/ Sodium Chloride IVPB 100 mls Q8HR FRANCHESKA Administration Fentanyl 100 mls @ 0 mls/hr 11/23/20 01:15 11/28/20 06:26 Fentanyl Cadd IV 12/23/20 01:15 100 mls INF FRANCHESKA Administration Protocol Per Protocol Norepinephrine Bitartrate 250 mls @ 0 mls/hr 11/23/20 06:00 11/24/20 08:00 Levophed IVPB 250 mls INF FRANCHESKA Administration Protocol Titrate Amiodarone HCl 450 mg/ 259 mls @ 0 mls/hr 11/23/20 17:15 11/27/20 16:02 Miscellaneous Medication 1 IVPB 259 mls each/ Dextrose/Water INF FRANCHESKA Administration Protocol As Directed Micafungin Sodium 100 mg/ 100 mls @ 100 mls/hr 11/26/20 17:00 11/27/20 16:54 Sodium Chloride IVPB 100 mls Q24HR FRANCHESKA Administration Insulin Human Regular 0 units 11/23/20 14:35 11/28/20 12:23 Insulin Regular 300 Units/3 Ml Vial SC 2 unit .MILD SLIDING SCALE PRN Administration Mild Correctional Scale Levothyroxine Sodium 75 mcg 11/24/20 06:00 11/28/20 05:06 Levothyroxine Sodium 75 Mcg Tab PER TUBE 75 mcg 0600 FRANCHESKA Administration Lorazepam 2 mg 11/23/20 01:15 11/27/20 13:51 Lorazepam 2 Mg/Ml Vial SLOW IVP 12/23/20 01:15 2 mg Q1H PRN Administration Breakthrough agitation Pantoprazole Sodium 40 mg 11/28/20 09:00 11/28/20 08:59 Pantoprazole 40 Mg Granules Packet PER TUBE 40 mg DAILY FRANCHESKA Administration Propofol 1,000 mg 11/23/20 01:15 11/23/20 02:22 Propofol 1,000 Mg/100 Ml Vial IV 12/23/20 01:15 1,000 mg INF PRN Administration TO ACHIEVE GOAL RASS Protocol Sodium Chloride 10 ml 11/23/20 09:00 11/27/20 20:57 Flush - Normal Saline 10 Ml Syringe IVF 10 ml Q12HR FRANCHESKA Administration Hospitalist Exam Vitals: Vital Signs (12 hours) Temp Pulse Resp BP Pulse Ox 11/28/20 14:24 80 110/50 L 11/28/20 14:00 20 11/28/20 12:00 98.5 F 18 11/28/20 10:20 79 110/58 L 11/28/20 10:00 11 L 11/28/20 08:00 28 H 99 11/28/20 07:00 98.4 F 11/28/20 06:51 89 102/42 L 11/28/20 06:00 12 Weight Admit Weight 149 lb Weight 153 lb 0.013 oz Most Recent Monitor Data Heart Rate from ECG 78 NIBP 107/53 NIBP BP-Mean 71 Respiration from ECG 18 SpO2 100 General Appearance: awake alert Eye: PERRL, anicteric sclera ENT: no oropharyngeal lesions, dry oral mucosa Neck: supple, no JVD Heart: RRR, no murmur Respiratory: no wheezes, no rales Gastrointestinal: soft, non-tender, non-distended, normal bowel sounds Extremities: no cyanosis, no edema Neurological: cranial nerve grossly intact, no focal deficits Hosp A/P (1) Acute respiratory failure with hypoxia Code(s): J96.01 - ACUTE RESPIRATORY FAILURE WITH HYPOXIA Status: Acute (2) Sepsis Code(s): A41.9 - SEPSIS, UNSPECIFIED ORGANISM Status: Acute Qualifiers: Sepsis type: sepsis due to unspecified organism Sepsis acute organ dysfunction status: with acute organ dysfunction Severe sepsis acute organ dysfunction type: acute respiratory failure Acute respiratory failure type: with hypoxia Severe sepsis shock status: without septic shock Qualified Code(s): A41.9 - Sepsis, unspecified organism; R65.20 - Severe sepsis without septic shock; J96.01 - Acute respiratory failure with hypoxia (3) Acute exacerbation of CHF (congestive heart failure) Code(s): I50.9 - HEART FAILURE, UNSPECIFIED Status: Acute Qualifiers: Heart failure type: diastolic Qualified Code(s): I50.33 - Acute on chronic diastolic (congestive) heart failure (4) Atelectasis of left lung Code(s): J98.11 - ATELECTASIS Status: Acute (5) Afib Code(s): I48.91 - UNSPECIFIED ATRIAL FIBRILLATION Status: Chronic Qualifiers: Atrial fibrillation type: paroxysmal Qualified Code(s): I48.0 - Paroxysmal atrial fibrillation (6) DM type 2 (diabetes mellitus, type 2) Status: Chronic Qualifiers: Diabetes mellitus long winder tender insulin use: without long-term use (7) Pacemaker Code(s): Z95.0 - PRESENCE OF CARDIAC PACEMAKER Status: Chronic (8) Physical deconditioning Code(s): R53.81 - OTHER MALAISE Status: Acute (9) DEMETRA (acute kidney injury) Code(s): N17.9 - ACUTE KIDNEY FAILURE, UNSPECIFIED Status: Acute (10) Moderate protein malnutrition Code(s): E44.0 - MODERATE PROTEIN-CALORIE MALNUTRITION Status: Acute (11) UTI (urinary tract infection) Status: Acute Qualifiers: Urinary tract infection type: acute cystitis Hematuria presence: without hematuria Qualified Code(s): N30.00 - Acute cystitis without hematuria - Plan Hb is stable obtain pcm print out for cardiology to evaluate. is on amiodarone drip, full dose lovenox both for afib micafungin for c.krusei in her urine continue zosyn, blood cs are -ve on protonix, synthroid, nebs echo shows ef of 65%, rvsp is 46 hemostable d/w daughter ([phone]) at bedside, gave a full update, she has spoken to earlier 11/25, at bedside on 11/26, 11/28. is getting gentle diuresis, renal function holding up prognosis guarded, family is aware
--- NOTE | 2020-11-28 18:16 | PDOC.CPN ---
- Subjective Date: 11/28/20 Time: 18:15 Interval history: Remains intubated, follows commands. - Review of Systems ROS unobtainable: due to endotracheal tube - Objective Allergies/Adverse Reactions: Allergies Allergy/AdvReac Type Severity Reaction Status Date / Time metformin Allergy Verified 11/22/20 21:35 Visit Medications: Current Medications Albuterol/Ipratropium (Ipratropium/Albuterol Sulfate 3 Ml Neb) 3 ml NEB Q6H PRN PRN Reason: SOB &/or Wheezing Bisacodyl (Bisacodyl 10 Mg Supp) 10 mg [place] DAILYPRN PRN PRN Reason: Constipation Dextrose/Water (Dextrose 50% Abboject 50 Ml Syringe) 25 gm SLOW IVP PRN PRN PRN Reason: Hypoglycemia Furosemide (Furosemide 20 Mg/2 Ml Vial) 20 mg SLOW IVP 0600,1400 [facility] Last Admin: 11/28/20 14:25 Dose: 20 mg Documented by: Glucagon (Glucagon 1 Mg/Ml Vial) 1 mg IM PRN PRN PRN Reason: Hypoglycemia Guaifenesin (Guaifenesin Sf Soln 200 Mg/10 Ml Udcup) 600 mg PER TUBE Q12HR [facility] Last Admin: 11/28/20 12:26 Dose: Not Given Documented by: Piperacillin Sod/Tazobactam (Sod 4.5 gm/ Sodium Chloride) 100 mls @ 200 mls/hr IVPB Q8HR [facility] Last Admin: 11/28/20 14:24 Dose: 100 mls Documented by: Fentanyl (Fentanyl Cadd) 100 mls @ 0 mls/hr IV INF [facility]; Protocol Stop: 12/23/20 01:15 Last Admin: 11/28/20 06:26 Dose: 100 mls Documented by: Fentanyl Citrate (Fentanyl Bolus) 250 mls @ 0 mls/hr IVPB PRN PRN PRN Reason: Breakthrough pain/agitation Stop: 12/23/20 01:15 Norepinephrine Bitartrate (Levophed) 250 mls @ 0 mls/hr IVPB INF [facility]; Protocol Last Admin: 11/24/20 08:00 Dose: 250 mls Documented by: Dextrose/Water (D5w) 1,000 mls @ 0 mls/hr IV .Q0M PRN PRN Reason: Hypoglycemia Amiodarone HCl 450 mg/Miscellaneous Medication 1 each/ Dextrose/Water 259 mls @ 0 mls/hr IVPB INF [facility]; Protocol Last Admin: 11/27/20 16:02 Dose: 259 mls Documented by: Micafungin Sodium 100 mg/ (Sodium Chloride) 100 mls @ 100 mls/hr IVPB Q24HR [facility] Last Admin: 11/27/20 16:54 Dose: 100 mls Documented by: Insulin Human Regular (Insulin Regular 300 Units/3 Ml Vial) 0 units SC .MILD SLIDING SCALE PRN PRN Reason: Mild Correctional Scale Last Admin: 11/28/20 16:40 Dose: 2 unit Documented by: Levothyroxine Sodium (Levothyroxine Sodium 75 Mcg Tab) 75 mcg PER TUBE 0600 [facility] Last Admin: 11/28/20 05:06 Dose: 75 mcg Documented by: Lorazepam (Lorazepam 2 Mg/Ml Vial) 2 mg SLOW IVP Q1H PRN PRN Reason: Breakthrough agitation Stop: 12/23/20 01:15 Last Admin: 11/27/20 13:51 Dose: 2 mg Documented by: Magnesium Hydroxide (Milk Of Magnesia 30 Ml Udcup) 30 ml PO Q8H PRN PRN Reason: Constipation Miscellaneous Medication (Electrolyte Replacement Protocol) 0 each FS ASDIR PRN; Protocol PRN Reason: ELECTROLYTE REPLACEMENT Miscellaneous Medication (Pharmacy To Dose Vancomycin/Zosyn) 1 each IVPB PRN PRN PRN Reason: Pharmacy to dose Morphine Sulfate (Morphine 2 Mg/Ml Vial) 2 mg SLOW IVP Q1H PRN PRN Reason: Breakthrough Pain/Agitation Stop: 12/23/20 01:15 Discontinue Previous Narcotic Pain Medications And Benzodiazepines 1 each FS .ONE [facility] Stop: 12/23/20 01:15 Pantoprazole Sodium (Pantoprazole 40 Mg Granules Packet) 40 mg PER TUBE DAILY [facility] Last Admin: 11/28/20 08:59 Dose: 40 mg Documented by: Propofol (Propofol 1,000 Mg/100 Ml Vial) 1,000 mg IV INF PRN; Protocol PRN Reason: TO ACHIEVE GOAL RASS Stop: 12/23/20 01:15 Last Admin: 11/23/20 02:22 Dose: 1,000 mg Documented by: Propofol (Propofol Bolus 1,000 Mg/100 Ml Vial) 20 mg IV Q5MIN PRN PRN Reason: BREAKTHROUGH AGITATION Stop: 12/23/20 01:15 Sodium Chloride (Flush - Normal Saline 10 Ml Syringe) 10 ml IVF Q12HR [facility] Last Admin: 11/27/20 20:57 Dose: 10 ml Documented by: Sodium Chloride (Flush - Normal Saline 10 Ml Syringe) 10 ml IVF PRN PRN PRN Reason: Saline Flush Vital Signs & Weight: Vital Signs Temp Pulse Resp BP Pulse Ox 11/28/20 16:00 98.2 F 10 L 11/28/20 14:24 80 110/50 L 11/28/20 14:00 20 11/28/20 12:00 98.5 F 18 11/28/20 10:20 79 110/58 L 11/28/20 10:00 11 L 11/28/20 08:00 28 H 99 11/28/20 07:00 98.4 F 11/28/20 06:51 89 102/42 L Admit Weight 149 lb Weight 153 lb 0.013 oz - Physical Exam General: no apparent distress HEENT: normocephaly Neck: supple neck Cardiac: irregularly regular Lungs: clear to auscultation Neuro: grossly intact Abdomen: active bowel sounds Extremities: no edema Skin: clear Musculoskeletal: normal range of motion - Labs Result Diagrams: 11/28/20 04:30 11/28/20 04:30 Troponin/CKMB Troponin I 0.023 ng/mL (< 0.028) 11/22/20 19:41 - Telemetry Supraventricular conduction: atrial fibrillation - Assessment/Plan Assessment/Plan: 1. Afib RVR, now rate controlled. 2. COPD 3. Acute hypoxic respiratory insufficiency. 4. Collapsed left lung, likely from mucous plug, resolved. 5. Severe RV dysfunction. 6. Anemia 7. Presence of a PPM. PLAN: - Rate controlled in the s. - Will switch amio to PO low dose load. - Hgb stable.
[2020-11-28] MEDS: Micafungin 100 MG in Sodium Chloride 0.9% 100 ML IVPB SCH (18:18)
[2020-11-28] MEDS: Amiodarone 200 MG TAB PO SCH (20:17)
[2020-11-29] MEDS: Insulin Regular 300 UNITS/3 ML VIAL SC PRN ×3 (03:44→20:36)
[2020-11-29 03:57] LABS: #Eosinphils 0.1 thou/uL (0.0-0.7); #Monocytes 1.1 thou/uL (0.11-0.59); #Neutrophils 6.6 thou/uL (1.40-6.50); %Basophils 0.4 % (0.0-1.0); %Eosinophils 1.1 % (0.0-10.0); %Lymphocytes 11.3 % (21.0-51.0); %Monocytes 12.3 % (0.0-10.0); %Neutrophils 74.8 % (42.0-75.0); Hemoglobin 9.1 g/dL (12.0-16.0); Mean Corpuscular HGB CONC 32.8 g/dL (32.0-36.0); Mean Corpuscular Volume 91.5 fL (78.0-98.0); Mean Platelet Volume 8.3 fL (7.4-10.4); Platelet Count 75 thou/uL (130-400); RBC Distribution Width 15.7 % (11.5-14.5); Red Blood Cell (RBC) Count 3.02 mill/uL (4.20-5.40); White Blood Cell (WBC) Count 8.8 thou/uL (4.8-10.8)
[2020-11-29 04:15] LABS: Anion Gap 11 mmol/L (10-20); BUN (Urea Nitrogen) 37 mg/dL (9.8-20.1); Calc. Creatinine Clearance 35 mL/min (70-130); Calcium 7.8 mg/dL (7.8-10.44); Carbon Dioxide 28 mmol/L (23-31); Chloride 99 mmol/L (98-107); Glucose 170 mg/dL (83-110); Potassium 3.3 mmol/L (3.5-5.1); Sodium 135 mmol/L (136-145)
[2020-11-29] MEDS ORDERED: Potassium Chloride 40 MEQ in Premix Bag 1 BAG IVPB SCH (04:45)
[2020-11-29] MEDS: Levothyroxine Sodium 75 MCG TAB PER TUBE SCH (05:20)
[2020-11-29] MEDS: Furosemide 20 MG/2 ML VIAL SLOW IVP SCH (05:21)
[2020-11-29] MEDS: Piperacillin/Tazobactam 4.5 GM in Sodium Chloride 0.9% 100 ML IVPB SCH ×3 (05:21→22:04)
[2020-11-29 07:33] LABS: Actual Bicarbonate (HCO3a) 28.5 mEq/L (22-28); Base Excess (BEa) 1.6 mEq/L (-2.0 to +3.0); CO2 Tension 56.8 mmHg (35.0-45.0); Calcium, Ionized (arterial) 1.13 mmol/L (1.12-1.30); Carboxyhemoglobin (COHb) 0.6 gm% (0.0-3.0); O2 Tension (PaO2), arterial 85.5 mmHg (> 60.0); Potassium - ABG Lab 3.27 mmol/L (3.70-5.30); pH, Arterial 7.32 (7.35-7.45)
[2020-11-29 07:51] LABS: Puncture Site RRA
--- NOTE | 2020-11-29 07:54 | PRG ---
DATE OF SERVICE: 11/29/2020 SUBJECTIVE: The patient remains intubated on mechanical ventilation. She is lightly sedated on fentanyl. OBJECTIVE: VITAL SIGNS: Temperature is 98.1, pulse 87, blood pressure 106/53. Intake for 24 hours 2049, output 905. HEENT: Unremarkable. NECK: No adenopathy or JVD. LUNGS: Fairly clear anteriorly. CARDIAC: S1 and S2. Irregularly irregular. No murmur. ABDOMEN: Soft and nontender. EXTREMITIES: No clubbing or cyanosis. She has trace edema throughout. LABORATORY DATA: White blood cell count 8.8, hematocrit 27.6, and platelet count 75. ABG pending. Sodium 135, potassium 3.3, chloride 99, CO2 of 28, BUN 37, creatinine 1.2, and glucose 170. Her x-ray shows no significant change. ASSESSMENT: 1. Acute hypoxic respiratory failure, requiring mechanical ventilation. 2. Right ventricular failure. 3. Anemia. 4. Thrombocytopenia. 5. Status post left lung atelectasis. 6. Overall failure to thrive. 7. Atrial fibrillation. PLAN: 1. I tried her on spontaneous breathing today. She is not strong enough to sustain spontaneous breathing for very long. 2. I spoke with the patient's daughter yesterday. I am quite concerned that this patient is deconditioned beyond the point where she can wean successfully from mechanical ventilation. I think for looking in the situation of an elderly female, who was at the end of her life. Today, I will slowly try to back down the patient's respiratory rate. I have no confidence that she will be able to tolerate this. We will continue to follow. The above encompass 35 minutes of critical care time. Job ID: [id number]
--- NOTE | 2020-11-29 08:09 | RAD ---
Portable frontal chest radiograph: 11/29/2020 COMPARISON: 11/28/2020 HISTORY: Pneumonia FINDINGS: Stable enlargement of cardiac silhouette, endotracheal tube, and nasogastric tube, and dual lead left-sided transvenous pacing device. There is stable dense opacity in the perihilar regions and both lung bases suggesting consolidation/collapse and associated pleural fluid.. IMPRESSION: Stable appearance of the chest as detailed above. Findings suggest pulmonary edema. Super imposed infection or aspiration cannot be excluded.
[2020-11-29] MEDS: Pantoprazole 40 MG GRANULES PACKET PER TUBE SCH (09:32)
[2020-11-29] MEDS: Amiodarone 200 MG TAB PO SCH ×2 (09:32→20:35)
[2020-11-29] MEDS: GUAIFENESIN SF SOLN 200 MG/10 ML UDCUP PER TUBE SCH ×2 (11:49→20:35)
[2020-11-29] MEDS ORDERED: Fentanyl CADD 100 ML ONE (13:00)
[2020-11-29] MEDS: Furosemide 40 MG/4 ML VIAL SLOW IVP SCH (14:27)
--- NOTE | 2020-11-29 14:42 | PDOC.HOSPP ---
- Subjective Encounter Date: 11/29/20 Encounter Time: 09:00 Subjective: is on vent, has fentanyl for sedation opens eyes and moves a bit of her extremities, is weak. - Objective Vital Signs & Weight: Vital Signs (12 hours) Temp Pulse Resp Pulse Ox 11/29/20 14:27 92 11/29/20 14:00 14 11/29/20 12:00 98.2 F 9 L 11/29/20 10:33 92 11/29/20 10:00 17 11/29/20 08:00 12 98 11/29/20 07:52 90 11/29/20 07:00 97.7 F 11/29/20 06:00 25 H 11/29/20 04:00 97.9 F 17 Weight Admit Weight 149 lb Weight 162 lb 11.218 oz Most Recent Monitor Data Heart Rate from ECG 77 NIBP 107/52 NIBP BP-Mean 70 Respiration from ECG 14 SpO2 100 I&O: 11/28/20 11/29/20 11/30/20 06:59 06:59 06:59 Intake Total 2085.4 2050.5 170 Output Total 770 905 445 Balance 1315.4 1145.5 -275 Result Diagrams: 11/29/20 03:40 11/29/20 03:40 Additional Labs: Accuchecks 11/29/20 11/29/20 11/28/20 08:12 03:42 23:33 POC Glucose 143 H 150 H 197 H 11/28/20 11/28/20 11/28/20 19:57 16:06 04:34 POC Glucose 155 H 157 H 185 H 11/28/20 01:24 POC Glucose 166 H Hospitalist ROS - Medication Medications: Active Medications Generic Name Dose Route Start Last Admin Trade Name Freq PRN Reason Stop Dose Admin Amiodarone HCl 200 mg 11/28/20 21:00 11/29/20 09:32 Amiodarone 200 Mg Tab PO 200 mg BID [facility] Administration Furosemide 40 mg 11/29/20 14:00 11/29/20 14:27 Furosemide 40 Mg/4 Ml Vial SLOW IVP 40 mg 0600,1400 [facility] Administration Guaifenesin 600 mg 11/23/20 21:00 11/29/20 11:49 Guaifenesin Sf Soln 200 Mg/10 Ml Udcup PER TUBE 600 mg Q12HR [facility] Administration Piperacillin Sod/Tazobactam 100 mls @ 200 mls/hr 11/23/20 06:00 11/29/20 14:27 Sod 4.5 gm/ Sodium Chloride IVPB 100 mls Q8HR [facility] Administration Fentanyl 100 mls @ 0 mls/hr 11/23/20 01:15 11/28/20 06:26 Fentanyl Cadd IV 12/23/20 01:15 100 mls INF [facility] Administration Protocol Per Protocol Norepinephrine Bitartrate 250 mls @ 0 mls/hr 11/23/20 06:00 11/24/20 08:00 Levophed IVPB 250 mls INF [facility] Administration Protocol Titrate Micafungin Sodium 100 mg/ 100 mls @ 100 mls/hr 11/26/20 17:00 11/28/20 18:18 Sodium Chloride IVPB 100 mls Q24HR [facility] Administration Insulin Human Regular 0 units 11/23/20 14:35 11/29/20 03:44 Insulin Regular 300 Units/3 Ml Vial SC 2 unit .MILD SLIDING SCALE PRN Administration Mild Correctional Scale Levothyroxine Sodium 75 mcg 11/24/20 06:00 11/29/20 05:20 Levothyroxine Sodium 75 Mcg Tab PER TUBE 75 mcg 0600 [facility] Administration Lorazepam 2 mg 11/23/20 01:15 11/27/20 13:51 Lorazepam 2 Mg/Ml Vial SLOW IVP 12/23/20 01:15 2 mg Q1H PRN Administration Breakthrough agitation Pantoprazole Sodium 40 mg 11/28/20 09:00 11/29/20 09:32 Pantoprazole 40 Mg Granules Packet PER TUBE 40 mg DAILY [facility] Administration Propofol 1,000 mg 11/23/20 01:15 11/23/20 02:22 Propofol 1,000 Mg/100 Ml Vial IV 12/23/20 01:15 1,000 mg INF PRN Administration TO ACHIEVE GOAL RASS Protocol Sodium Chloride 10 ml 11/23/20 09:00 11/29/20 09:32 Flush - Normal Saline 10 Ml Syringe IVF 10 ml Q12HR [facility] Administration Hospitalist Exam Vitals: Vital Signs (12 hours) Temp Pulse Resp Pulse Ox 11/29/20 14:27 92 11/29/20 14:00 14 11/29/20 12:00 98.2 F 9 L 11/29/20 10:33 92 11/29/20 10:00 17 11/29/20 08:00 12 98 11/29/20 07:52 90 11/29/20 07:00 97.7 F 11/29/20 06:00 25 H 11/29/20 04:00 97.9 F 17 Weight Admit Weight 149 lb Weight 162 lb 11.218 oz Most Recent Monitor Data Heart Rate from ECG 77 NIBP 107/52 NIBP BP-Mean 70 Respiration from ECG 14 SpO2 100 General Appearance: ill appearing Eye: PERRL, anicteric sclera ENT: no oropharyngeal lesions, moist mucosa Neck: supple, no JVD Heart: RRR, no murmur Respiratory: no wheezes, rales, rhonchi Gastrointestinal: soft, non-tender, non-distended, normal bowel sounds Extremities: no cyanosis, 1+ LE edema Neurological: cranial nerve grossly intact, no focal deficits Hosp A/P (1) Acute respiratory failure with hypoxia Code(s): J96.01 - ACUTE RESPIRATORY FAILURE WITH HYPOXIA Status: Acute (2) Sepsis Code(s): A41.9 - SEPSIS, UNSPECIFIED ORGANISM Status: Resolved Qualifiers: Sepsis type: sepsis due to unspecified organism Sepsis acute organ dysfunction status: with acute organ dysfunction Severe sepsis acute organ dysfunction type: acute respiratory failure Acute respiratory failure type: with hypoxia Severe sepsis shock status: without septic shock Qualified Code(s): A41.9 - Sepsis, unspecified organism; R65.20 - Severe sepsis without septic shock; J96.01 - Acute respiratory failure with hypoxia (3) Acute exacerbation of CHF (congestive heart failure) Code(s): I50.9 - HEART FAILURE, UNSPECIFIED Status: Acute Qualifiers: Heart failure type: diastolic Qualified Code(s): I50.33 - Acute on chronic diastolic (congestive) heart failure (4) Atelectasis of left lung Code(s): J98.11 - ATELECTASIS Status: Resolved (5) Afib Code(s): I48.91 - UNSPECIFIED ATRIAL FIBRILLATION Status: Chronic Qualifiers: Atrial fibrillation type: paroxysmal Qualified Code(s): I48.0 - Paroxysmal atrial fibrillation (6) DM type 2 (diabetes mellitus, type 2) Status: Chronic 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-term use (7) Pacemaker Code(s): Z95.0 - PRESENCE OF CARDIAC PACEMAKER Status: Chronic (8) Physical deconditioning Code(s): R53.81 - OTHER MALAISE Status: Acute (9) DEMETRA (acute kidney injury) Code(s): N17.9 - ACUTE KIDNEY FAILURE, UNSPECIFIED Status: Acute (10) Moderate protein malnutrition Code(s): E44.0 - MODERATE PROTEIN-CALORIE MALNUTRITION Status: Acute (11) UTI (urinary tract infection) Status: Acute Qualifiers: Urinary tract infection type: acute cystitis Hematuria presence: without hematuria Qualified Code(s): N30.00 - Acute cystitis without hematuria - Plan Hb is stable obtain pcm print out for cardiology to evaluate. is on amiodarone oral, full dose lovenox both for afib micafungin for c.krusei in her urine zosyn, blood cs are -ve, may dc in am if ok with pulm. on protonix, synthroid, nebs echo shows ef of 65%, rvsp is 46 hemostable d/w daughter ([phone]) at bedside, gave a full update, she has spoken to earlier 11/25, at bedside on 11/26, 11/28, 11/29. is getting gentle diuresis, renal function holding up prognosis guarded, family is aware, is very deconditioned.
--- NOTE | 2020-11-29 16:59 | PDOC.CPN ---
- Subjective Date: 11/29/20 Time: 16:57 Interval history: Remains intubated and sedated. Following commands. - Review of Systems ROS unobtainable: due to endotracheal tube - Objective Allergies/Adverse Reactions: Allergies Allergy/AdvReac Type Severity Reaction Status Date / Time metformin Allergy Verified 11/22/20 21:35 Visit Medications: Current Medications Albuterol/Ipratropium (Ipratropium/Albuterol Sulfate 3 Ml Neb) 3 ml NEB Q6H PRN PRN Reason: SOB &/or Wheezing Amiodarone HCl (Amiodarone 200 Mg Tab) 200 mg PO BID [facility] Last Admin: 11/29/20 09:32 Dose: 200 mg Documented by: Bisacodyl (Bisacodyl 10 Mg Supp) [address] DAILYPRN PRN PRN Reason: Constipation Dextrose/Water (Dextrose 50% Abboject 50 Ml Syringe) 25 gm SLOW IVP PRN PRN PRN Reason: Hypoglycemia Furosemide (Furosemide 40 Mg/4 Ml Vial) 40 mg SLOW IVP 0600,1400 [facility] Last Admin: 11/29/20 14:27 Dose: 40 mg Documented by: Glucagon (Glucagon 1 Mg/Ml Vial) 1 mg IM PRN PRN PRN Reason: Hypoglycemia Guaifenesin (Guaifenesin Sf Soln 200 Mg/10 Ml Udcup) 600 mg PER TUBE Q12HR [facility] Last Admin: 11/29/20 11:49 Dose: 600 mg Documented by: Piperacillin Sod/Tazobactam (Sod 4.5 gm/ Sodium Chloride) 100 mls @ 200 mls/hr IVPB Q8HR [facility] Last Admin: 11/29/20 14:27 Dose: 100 mls Documented by: Fentanyl (Fentanyl Cadd) 100 mls @ 0 mls/hr IV INF [facility]; Protocol Stop: 12/23/20 01:15 Last Admin: 11/28/20 06:26 Dose: 100 mls Documented by: Fentanyl Citrate (Fentanyl Bolus) 250 mls @ 0 mls/hr IVPB PRN PRN PRN Reason: Breakthrough pain/agitation Stop: 12/23/20 01:15 Norepinephrine Bitartrate (Levophed) 250 mls @ 0 mls/hr IVPB INF [facility]; Protocol Last Admin: 11/24/20 08:00 Dose: 250 mls Documented by: Dextrose/Water (D5w) 1,000 mls @ 0 mls/hr IV .Q0M PRN PRN Reason: Hypoglycemia Micafungin Sodium 100 mg/ (Sodium Chloride) 100 mls @ 100 mls/hr IVPB Q24HR [facility] Last Admin: 11/28/20 18:18 Dose: 100 mls Documented by: Insulin Human Regular (Insulin Regular 300 Units/3 Ml Vial) 0 units SC .MILD SLIDING SCALE PRN PRN Reason: Mild Correctional Scale Last Admin: 11/29/20 16:09 Dose: 3 unit Documented by: Levothyroxine Sodium (Levothyroxine Sodium 75 Mcg Tab) 75 mcg PER TUBE 0600 [facility] Last Admin: 11/29/20 05:20 Dose: 75 mcg Documented by: Lorazepam (Lorazepam 2 Mg/Ml Vial) 2 mg SLOW IVP Q1H PRN PRN Reason: Breakthrough agitation Stop: 12/23/20 01:15 Last Admin: 11/27/20 13:51 Dose: 2 mg Documented by: Magnesium Hydroxide (Milk Of Magnesia 30 Ml Udcup) 30 ml PO Q8H PRN PRN Reason: Constipation Miscellaneous Medication (Electrolyte Replacement Protocol) 0 each FS ASDIR PRN; Protocol PRN Reason: ELECTROLYTE REPLACEMENT Miscellaneous Medication (Pharmacy To Dose Vancomycin/Zosyn) 1 each IVPB PRN PRN PRN Reason: Pharmacy to dose Morphine Sulfate (Morphine 2 Mg/Ml Vial) 2 mg SLOW IVP Q1H PRN PRN Reason: Breakthrough Pain/Agitation Stop: 12/23/20 01:15 Discontinue Previous Narcotic Pain Medications And Benzodiazepines 1 each FS .ONE [facility] Stop: 12/23/20 01:15 Pantoprazole Sodium (Pantoprazole 40 Mg Granules Packet) 40 mg PER TUBE DAILY [facility] Last Admin: 11/29/20 09:32 Dose: 40 mg Documented by: Propofol (Propofol 1,000 Mg/100 Ml Vial) 1,000 mg IV INF PRN; Protocol PRN Reason: TO ACHIEVE GOAL RASS Stop: 12/23/20 01:15 Last Admin: 11/23/20 02:22 Dose: 1,000 mg Documented by: Propofol (Propofol Bolus 1,000 Mg/100 Ml Vial) 20 mg IV Q5MIN PRN PRN Reason: BREAKTHROUGH AGITATION Stop: 12/23/20 01:15 Sodium Chloride (Flush - Normal Saline 10 Ml Syringe) 10 ml IVF Q12HR [facility] Last Admin: 11/29/20 09:32 Dose: 10 ml Documented by: Sodium Chloride (Flush - Normal Saline 10 Ml Syringe) 10 ml IVF PRN PRN PRN Reason: Saline Flush Vital Signs & Weight: Vital Signs Temp Pulse Resp Pulse Ox 11/29/20 16:00 98.6 F 12 11/29/20 14:27 92 11/29/20 14:00 14 11/29/20 12:00 98.2 F 9 L 11/29/20 10:33 92 11/29/20 10:00 17 11/29/20 08:00 12 98 11/29/20 07:52 90 11/29/20 07:00 97.7 F 11/29/20 06:00 25 H Admit Weight 149 lb Weight 162 lb 11.218 oz - Physical Exam General: no apparent distress HEENT: normocephaly Neck: midline trachea Cardiac: irregularly regular Lungs: clear to auscultation Neuro: no lateralizing findings Abdomen: active bowel sounds Extremities: 1+ LE edema Skin: clear Musculoskeletal: no pain - Labs Result Diagrams: 11/29/20 03:40 11/29/20 03:40 Troponin/CKMB Troponin I 0.023 ng/mL (< 0.028) 11/22/20 19:41 - Telemetry Supraventricular conduction: atrial fibrillation - Assessment/Plan Assessment/Plan: 1. Afib RVR, now rate controlled. 2. COPD 3. Acute hypoxic respiratory insufficiency. 4. Collapsed left lung, likely from mucous plug, resolved. 5. Severe RV dysfunction. 6. Anemia 7. Presence of a PPM. PLAN: - Rate controlled in the s. - Amio PO load at 200 mg BID for 5 mo,re days then 200 mg dialy. - Agree with BID IV lasix dosing. - Hgb stable, will restart full dose lovenox for stroke prophylaxis.
[2020-11-29] MEDS: Micafungin 100 MG in Sodium Chloride 0.9% 100 ML IVPB SCH (18:23)
[2020-11-29] MEDS: Enoxaparin Sodium 80 MG/0.8 ML SYRINGE SC SCH (20:35)
[2020-11-30] MEDS: Insulin Regular 300 UNITS/3 ML VIAL SC PRN ×3 (01:12→12:47)
[2020-11-30 05:06] LABS: Anion Gap 9 mmol/L (10-20); BUN (Urea Nitrogen) 37 mg/dL (9.8-20.1); Calc. Creatinine Clearance 46 mL/min (70-130); Carbon Dioxide 31 mmol/L (23-31); Chloride 99 mmol/L (98-107); Glucose 210 mg/dL (83-110); Potassium 3.1 mmol/L (3.5-5.1); Sodium 136 mmol/L (136-145)
[2020-11-30 05:08] LABS: Band 6 % (5-11); Eosinophils 1 % (0-10); Hemoglobin 8.6 g/dL (12.0-16.0); Hypochromia SLIGHT = 6-15 cells (100X) (0-5/hpf); Lymphocytes 8 % (21-51); MDiff Complete? YES; Mean Corpuscular HGB CONC 32.3 g/dL (32.0-36.0); Mean Corpuscular Hemoglobin 29.7 pg (27.0-31.0); Mean Platelet Volume 8.8 fL (7.4-10.4); Monocytes 17 % (0-10); Neutrophil 68 % (42-75); Platelet Count 98 thou/uL (130-400); Platelet Morphology Comment Appears Adequate; Red Blood Cell (RBC) Count 2.89 mill/uL (4.20-5.40); White Blood Cell (WBC) Count 8.5 thou/uL (4.8-10.8)
[2020-11-30] MEDS ORDERED: Potassium Chloride 40 MEQ in Premix Bag 1 BAG IVPB SCH (05:45)
[2020-11-30] MEDS: Furosemide 40 MG/4 ML VIAL SLOW IVP SCH ×2 (06:15→14:01)
[2020-11-30] MEDS: Levothyroxine Sodium 75 MCG TAB PER TUBE SCH (06:15)
[2020-11-30] MEDS: Piperacillin/Tazobactam 4.5 GM in Sodium Chloride 0.9% 100 ML IVPB SCH (06:15)
[2020-11-30 07:11] VITALS: BP 114/52
[2020-11-30 07:40] LABS: Actual Bicarbonate (HCO3a) 29.2 mEq/L (22-28); Base Excess (BEa) 3.4 mEq/L (-2.0 to +3.0); CO2 Tension 51.6 mmHg (35.0-45.0); Calcium, Ionized (arterial) 1.11 mmol/L (1.12-1.30); Carboxyhemoglobin (COHb) 0.2 gm% (0.0-3.0); Hemoglobin (Hb) 8.9 g/dL (12.0-16.0); O2 Tension (PaO2), arterial 74.8 mmHg (> 60.0); Potassium - ABG Lab 3.11 mmol/L (3.70-5.30); pH, Arterial 7.37 (7.35-7.45)
--- NOTE | 2020-11-30 07:52 | PRG ---
DATE OF SERVICE: 11/30/2020 This is 35 minutes of critical care time. SUBJECTIVE: The patient remains intubated, on mechanical ventilation. She is fully awake and follows all commands including pulling her head off the pillow, squeezing with her hands, and pushing with her feet. OBJECTIVE: VITAL SIGNS: Temperature 98.8, pulse 80, blood pressure 112/53. She is lightly sedated on fentanyl. She is on no vasopressors or IV cardiac medications at this time. 24-hour intake was 1840, output 1700. HEENT: Unremarkable. NECK: No adenopathy or JVD. LUNGS: Fairly clear aside from diminished breath sounds in the bases. CARDIAC: S1 and S2, irregularly irregular. ABDOMEN: Soft and nontender to palpation. EXTREMITIES: No clubbing or cyanosis. She has some left arm edema, presumably related to old infiltrated IV site. LABORATORY DATA: White blood cell count 8.5, hemoglobin 8.6, hematocrit 26.6, and platelet count 98. Sodium 136, potassium 3.1, chloride 99, CO2 of 31, BUN 37, creatinine 1.0, glucose 210. Her x-ray shows cardiomegaly. She probably has a substantial pleural effusion at the right base, difficult to tell on the left. ASSESSMENT: 1. Acute hypoxic respiratory failure, requiring mechanical ventilation. 2. Right ventricular failure. 3. Status post anemia - unknown origin, requiring blood transfusion. 4. Atrial fibrillation. 5. Advanced age. PLAN: 1. The patient is continuing diuresis. Unfortunately, we have not seen profound output compared to intake. 2. Spontaneous breathing trial to see if she would possibly tolerate extubation. 3. Replace potassium. Job ID: [id number]
[2020-11-30 08:08] LABS: Puncture Site LRA
[2020-11-30] MEDS: GUAIFENESIN SF SOLN 200 MG/10 ML UDCUP PER TUBE SCH ×2 (08:15→20:39)
[2020-11-30] MEDS: Enoxaparin Sodium 80 MG/0.8 ML SYRINGE SC SCH (08:16)
[2020-11-30] MEDS: Pantoprazole 40 MG GRANULES PACKET PER TUBE SCH (08:16)
[2020-11-30] MEDS: Amiodarone 200 MG TAB PO SCH ×2 (08:16→20:39)
--- NOTE | 2020-11-30 08:16 | RAD ---
Portable frontal chest radiograph: 11/30/2020 COMPARISON: 11/29/2020 HISTORY: Pneumonia FINDINGS: Stable endotracheal tube and nasogastric tube. Stable multilead transvenous pacing device. No pneumothorax. There is dense pleural and parenchymal opacity in the lung bases. Cardiac silhouette is enlarged. IMPRESSION: No significant interval change.
[2020-11-30] MEDS ORDERED: Metolazone 5 MG TAB PER TUBE SCH (08:30)
[2020-11-30 12:49] LABS: Potassium 3.3 mmol/L (3.5-5.1)
--- NOTE | 2020-11-30 13:28 | ULT ---
EXAM: Left upper extremity venous ultrasound HISTORY: Left upper extremity pain and edema COMPARISON: None TECHNIQUE: Multiplanar grayscale and color Doppler images were obtained in a left upper extremity [place] ous ultrasound. Spectral analysis of the Doppler waveforms were performed. FINDINGS: The internal jugular vein demonstrates normal compression and flow without evidence of thrombus. The subclavian vein demonstrates normal flow and augmentation without evidence of thrombus. The axillary and brachial veins demonstrate normal compression, flow, and augmentation without eviden ce of thrombus. The venous structures distal to the elbow are patent without thrombus. The basilic vein is patent. The cephalic vein is noncompressible in the upper arm near the elbow. IMPRESSION: 1. No evidence of DVT. 2. Noncompressible cephalic may represent a nonocclusive thrombus.
[2020-11-30] MEDS ORDERED: Potassium Chloride 40 MEQ in Sodium Chloride 0.9% 250 ML 250 ML IVPB SCH (14:15)
--- NOTE | 2020-11-30 14:42 | PDOC.HOSPP ---
- Subjective Encounter Date: 11/30/20 Encounter Time: 09:30 Subjective: got extubated this am, is doing well oriented well daughter at bedside - Objective Vital Signs & Weight: Vital Signs (12 hours) Pulse Resp BP Pulse Ox 11/30/20 12:00 97 11/30/20 08:25 96 11/30/20 08:00 16 97 11/30/20 07:08 82 114/52 L 11/30/20 06:00 13 11/30/20 04:00 17 Weight Admit Weight 149 lb Weight 159 lb 6.307 oz Most Recent Monitor Data Heart Rate from ECG 77 NIBP 128/53 NIBP BP-Mean 78 Respiration from ECG 23 SpO2 89 I&O: 11/29/20 11/30/20 12/01/20 06:59 06:59 06:59 Intake Total 2050.5 1840.1 120 Output Total 905 1700 805 Balance 1145.5 140.1 -685 Result Diagrams: 11/30/20 04:00 11/30/20 12:21 Additional Labs: Accuchecks 11/30/20 11/30/20 11/29/20 04:01 00:55 20:29 POC Glucose 199 H 193 H 236 H 11/29/20 16:07 POC Glucose 239 H Hospitalist ROS - Medication Medications: Active Medications Generic Name Dose Route Start Last Admin Trade Name Gregq PRN Reason Stop Dose Admin Amiodarone HCl 200 mg 11/28/20 21:00 11/30/20 08:16 Amiodarone 200 Mg Tab PO 200 mg BID [facility] Administration Furosemide 40 mg 11/29/20 14:00 11/30/20 14:01 Furosemide 40 Mg/4 Ml Vial SLOW IVP 40 mg 0600,1400 [facility] Administration Guaifenesin 600 mg 11/23/20 21:00 11/30/20 08:15 Guaifenesin Sf Soln 200 Mg/10 Ml Udcup PER TUBE 600 mg Q12HR [facility] Administration Fentanyl 100 mls @ 0 mls/hr 11/23/20 01:15 11/28/20 06:26 Fentanyl Cadd IV 12/23/20 01:15 100 mls INF [facility] Administration Protocol Per Protocol Norepinephrine Bitartrate 250 mls @ 0 mls/hr 11/23/20 06:00 11/24/20 08:00 Levophed IVPB 250 mls INF [facility] Administration Protocol Titrate Micafungin Sodium 100 mg/ 100 mls @ 100 mls/hr 11/26/20 17:00 11/29/20 18:23 Sodium Chloride IVPB 100 mls Q24HR [facility] Administration Insulin Human Regular 0 units 11/23/20 14:35 11/30/20 12:47 Insulin Regular 300 Units/3 Ml Vial SC 2 unit .MILD SLIDING SCALE PRN Administration Mild Correctional Scale Levothyroxine Sodium 75 mcg 11/24/20 06:00 11/30/20 06:15 Levothyroxine Sodium 75 Mcg Tab PER TUBE 75 mcg 0600 [facility] Administration Lorazepam 2 mg 11/23/20 01:15 11/27/20 13:51 Lorazepam 2 Mg/Ml Vial SLOW IVP 12/23/20 01:15 2 mg Q1H PRN Administration Breakthrough agitation Metolazone 5 mg 11/30/20 08:30 11/30/20 08:16 Metolazone 5 Mg Tab PER TUBE 5 mg 0830 [facility] Administration Pantoprazole Sodium 40 mg 11/28/20 09:00 11/30/20 08:16 Pantoprazole 40 Mg Granules Packet PER TUBE 40 mg DAILY [facility] Administration Propofol 1,000 mg 11/23/20 01:15 11/23/20 02:22 Propofol 1,000 Mg/100 Ml Vial IV 12/23/20 01:15 1,000 mg INF PRN Administration TO ACHIEVE GOAL RASS Protocol Sodium Chloride 10 ml 11/23/20 09:00 11/30/20 14:05 Flush - Normal Saline 10 Ml Syringe IVF 10 ml Q12HR [facility] Administration Hospitalist Exam Vitals: Vital Signs (12 hours) Pulse Resp BP Pulse Ox 11/30/20 12:00 97 11/30/20 08:25 96 11/30/20 08:00 16 97 11/30/20 07:08 82 114/52 L 11/30/20 06:00 13 11/30/20 04:00 17 Weight Admit Weight 149 lb Weight 159 lb 6.307 oz Most Recent Monitor Data Heart Rate from ECG 77 NIBP 128/53 NIBP BP-Mean 78 Respiration from ECG 23 SpO2 89 General Appearance: awake alert Eye: PERRL, anicteric sclera ENT: no oropharyngeal lesions, moist mucosa Neck: supple, no JVD Heart: RRR, no murmur Respiratory: no wheezes, rales, rhonchi Gastrointestinal: soft, non-tender, non-distended, normal bowel sounds Extremities: no cyanosis, 1+ LE edema Neurological: cranial nerve grossly intact, no focal deficits Hosp A/P (1) Acute respiratory failure with hypoxia Code(s): J96.01 - ACUTE RESPIRATORY FAILURE WITH HYPOXIA Status: Acute (2) Sepsis Code(s): A41.9 - SEPSIS, UNSPECIFIED ORGANISM Status: Resolved Qualifiers: Sepsis type: sepsis due to unspecified organism Sepsis acute organ dysfunction status: with acute organ dysfunction Severe sepsis acute organ dysfunction type: acute respiratory failure Acute respiratory failure type: with hypoxia Severe sepsis shock status: without septic shock Qualified Code(s): A41.9 - Sepsis, unspecified organism; R65.20 - Severe sepsis without septic shock; J96.01 - Acute respiratory failure with hypoxia (3) Acute exacerbation of CHF (congestive heart failure) Code(s): I50.9 - HEART FAILURE, UNSPECIFIED Status: Acute Qualifiers: Heart failure type: diastolic Qualified Code(s): I50.33 - Acute on chronic diastolic (congestive) heart failure (4) Atelectasis of left lung Code(s): J98.11 - ATELECTASIS Status: Resolved (5) Afib Code(s): I48.91 - UNSPECIFIED ATRIAL FIBRILLATION Status: Chronic Qualifiers: Atrial fibrillation type: paroxysmal Qualified Code(s): I48.0 - Paroxysmal atrial fibrillation (6) DM type 2 (diabetes mellitus, type 2) Status: Chronic Qualifiers: Diabetes mellitus intermediate designer insulin use: without penitentiary use (7) Pacemaker Code(s): Z95.0 - PRESENCE OF CARDIAC PACEMAKER Status: Chronic (8) Physical deconditioning Code(s): R53.81 - OTHER MALAISE Status: Acute (9) DEMETRA (acute kidney injury) Code(s): N17.9 - ACUTE KIDNEY FAILURE, UNSPECIFIED Status: Acute (10) Moderate protein malnutrition Code(s): E44.0 - MODERATE PROTEIN-CALORIE MALNUTRITION Status: Acute (11) UTI (urinary tract infection) Status: Acute Qualifiers: Urinary tract infection type: acute cystitis Hematuria presence: without h ematuria Qualified Code(s): N30.00 - Acute cystitis without hematuria - Plan got extubated 11/30, doing well. Hb is stable obtain pcm print out for cardiology to evaluate. is on amiodarone oral for afib in sinus now micafungin for c.krusei in her urine on protonix, synthroid, nebs echo shows ef of 65%, rvsp is 46 hemostable d/w daughter ([phone]) at bedside, gave a full update, she has spoken to earlier 11/25, at bedside on 11/26, 11/28, 11/29, 11/30. is getting gentle diuresis, renal function holding up prognosis guarded, family is aware, is very deconditioned. I have informed daughter that if she were to get reintubated or cpr done, her prognosis will be dismal. She will let us know about code status.
--- NOTE | 2020-11-30 16:52 | PDOC.CPN ---
- Subjective Date: 11/30/20 Time: 16:51 Interval history: She is now extubated and doing better. - Review of Systems General: denies: fever/chills, weight/appetite/sleep changes, night sweats, fatigue Respiratory: denies: cough, congestion, shortness of breath, exercise intolerance Cardiovascular: denies: chest pain, palpitation, edema, paroxysmal nocturnal dyspnea, orthopnea Gastrointestinal: denies: nausea, vomiting, diarrhea, constipation, abd pain, GI bleeding Musculoskeletal: denies: pain, tenderness, stiffness, swelling, arthritis/arthralgias Neurological: denies: numbness, syncope, seizure, weakness - Objective Allergies/Adverse Reactions: Allergies Allergy/AdvReac Type Severity Reaction Status Date / Time metformin Allergy Verified 11/22/20 21:35 Visit Medications: Current Medications Albuterol/Ipratropium (Ipratropium/Albuterol Sulfate 3 Ml Neb) 3 ml NEB Q6H PRN PRN Reason: SOB &/or Wheezing Amiodarone HCl (Amiodarone 200 Mg Tab) 200 mg PO BID [facility] Last Admin: 11/30/20 08:16 Dose: 200 mg Documented by: Bisacodyl (Bisacodyl 10 Mg Supp) 10 mg [place] DAILYPRN PRN PRN Reason: Constipation Dextrose/Water (Dextrose 50% Abboject 50 Ml Syringe) 25 gm SLOW IVP PRN PRN PRN Reason: Hypoglycemia Furosemide (Furosemide 40 Mg/4 Ml Vial) 40 mg SLOW IVP 0600,1400 [facility] Last Admin: 11/30/20 14:01 Dose: 40 mg Documented by: Glucagon (Glucagon 1 Mg/Ml Vial) 1 mg IM PRN PRN PRN Reason: Hypoglycemia Guaifenesin (Guaifenesin Sf Soln 200 Mg/10 Ml Udcup) 600 mg PER TUBE Q12HR [facility] Last Admin: 11/30/20 08:15 Dose: 600 mg Documented by: Fentanyl (Fentanyl Cadd) 100 mls @ 0 mls/hr IV INF [facility]; Protocol Stop: 12/23/20 01:15 Last Admin: 11/28/20 06:26 Dose: 100 mls Documented by: Fentanyl Citrate (Fentanyl Bolus) 250 mls @ 0 mls/hr IVPB PRN PRN PRN Reason: Breakthrough pain/agitation Stop: 12/23/20 01:15 Norepinephrine Bitartrate (Levophed) 250 mls @ 0 mls/hr IVPB INF [facility]; Protocol Last Admin: 11/24/20 08:00 Dose: 250 mls Documented by: Dextrose/Water (D5w) 1,000 mls @ 0 mls/hr IV .Q0M PRN PRN Reason: Hypoglycemia Micafungin Sodium 100 mg/ (Sodium Chloride) 100 mls @ 100 mls/hr IVPB Q24HR [facility] Last Admin: 11/29/20 18:23 Dose: 100 mls Documented by: Potassium Chloride 40 meq/ (Sodium Chloride) 270 mls @ 67.5 mls/hr IVPB NOW [facility] Stop: 11/30/20 18:14 Last Admin: 11/30/20 14:49 Dose: 270 mls Documented by: Insulin Human Regular (Insulin Regular 300 Units/3 Ml Vial) 0 units SC .MILD SLIDING SCALE PRN PRN Reason: Mild Correctional Scale Last Admin: 11/30/20 12:47 Dose: 2 unit Documented by: Levothyroxine Sodium (Levothyroxine Sodium 75 Mcg Tab) 75 mcg PER TUBE 0600 [facility] Last Admin: 11/30/20 06:15 Dose: 75 mcg Documented by: Lorazepam (Lorazepam 2 Mg/Ml Vial) 2 mg SLOW IVP Q1H PRN PRN Reason: Breakthrough agitation Stop: 12/23/20 01:15 Last Admin: 11/27/20 13:51 Dose: 2 mg Documented by: Magnesium Hydroxide (Milk Of Magnesia 30 Ml Udcup) 30 ml PO Q8H PRN PRN Reason: Constipation Metolazone (Metolazone 5 Mg Tab) 5 mg PER TUBE 0830 [facility] Last Admin: 11/30/20 08:16 Dose: 5 mg Documented by: Miscellaneous Medication (Electrolyte Replacement Protocol) 0 each FS ASDIR PRN; Protocol PRN Reason: ELECTROLYTE REPLACEMENT Morphine Sulfate (Morphine 2 Mg/Ml Vial) 2 mg SLOW IVP Q1H PRN PRN Reason: Breakthrough Pain/Agitation Stop: 12/23/20 01:15 Discontinue Previous Narcotic Pain Medications And Benzodiazepines 1 each FS .ONE [facility] Stop: 12/23/20 01:15 Pantoprazole Sodium (Pantoprazole 40 Mg Granules Packet) 40 mg PER TUBE DAILY [facility] Last Admin: 11/30/20 08:16 Dose: 40 mg Documented by: Propofol (Propofol 1,000 Mg/100 Ml Vial) 1,000 mg IV INF PRN; Protocol PRN Reason: TO ACHIEVE GOAL RASS Stop: 12/23/20 01:15 Last Admin: 11/23/20 02:22 Dose: 1,000 mg Documented by: Propofol (Propofol Bolus 1,000 Mg/100 Ml Vial) 20 mg IV Q5MIN PRN PRN Reason: BREAKTHROUGH AGITATION Stop: 12/23/20 01:15 Sodium Chloride (Flush - Normal Saline 10 Ml Syringe) 10 ml IVF Q12HR [facility] Last Admin: 11/30/20 14:05 Dose: 10 ml Documented by: Sodium Chloride (Flush - Normal Saline 10 Ml Syringe) 10 ml IVF PRN PRN PRN Reason: Saline Flush Vital Signs & Weight: Vital Signs Pulse Resp BP Pulse Ox 11/30/20 16:00 97 11/30/20 12:00 97 11/30/20 08:25 96 11/30/20 08:00 16 97 11/30/20 07:08 82 114/52 L 11/30/20 06:00 13 Admit Weight 149 lb Weight 159 lb 6.307 oz - Physical Exam General: alert & oriented x3 HEENT: mucus membranes moist Neck: supple neck Cardiac: irregularly regular Lungs: clear to auscultation Neuro: grossly intact Abdomen: active bowel sounds Extremities: other: (LUE edema.) Skin: clear Musculoskeletal: no pain - Labs Result Diagrams: 11/30/20 04:00 11/30/20 12:21 Troponin/CKMB Troponin I 0.023 ng/mL (< 0.028) 11/22/20 19:41 - Telemetry Supraventricular conduction: atrial fibrillation - Assessment/Plan Assessment/Plan: 1. Afib, rate controlled. 2. COPD 3. Acute hypoxic respiratory insufficiency, improved. 4. Collapsed left lung, likely from mucous plug, resolved. 5. Severe RV dysfunction. 6. Anemia 7. Presence of a PPM. PLAN: - Rate controlled in the 's. - Amio PO load at 200 mg BID for 4 more days then 200 mg daily. - Agree with BID IV lasix dosing. - Hgb stable, will restart full dose lovenox for stroke prophylaxis. - Will do venous US of the left UE to look for DVT.
[2020-11-30] MEDS: Micafungin 100 MG in Sodium Chloride 0.9% 100 ML IVPB SCH (17:00)
[2020-12-01 04:38] LABS: #Lymphocytes 0.8 thou/uL (1.20-3.40); #Monocytes 0.5 thou/uL (0.11-0.59); #Neutrophils 7.4 thou/uL (1.40-6.50); %Basophils 0.1 % (0.0-1.0); %Eosinophils 0.1 % (0.0-10.0); %Lymphocytes 9.4 % (21.0-51.0); %Monocytes 6.1 % (0.0-10.0); %Neutrophils 84.2 % (42.0-75.0); Hemoglobin 9.1 g/dL (12.0-16.0); Mean Corpuscular HGB CONC 32.3 g/dL (32.0-36.0); Mean Corpuscular Hemoglobin 30.4 pg (27.0-31.0); Mean Corpuscular Volume 94.2 fL (78.0-98.0); Mean Platelet Volume 7.7 fL (7.4-10.4); Platelet Count 153 thou/uL (130-400); White Blood Cell (WBC) Count 8.8 thou/uL (4.8-10.8)
[2020-12-01 04:45] LABS: Anion Gap 18 mmol/L (10-20); BUN (Urea Nitrogen) 40 mg/dL (9.8-20.1); Calc. Creatinine Clearance 42 mL/min (70-130); Calcium 8.5 mg/dL (7.8-10.44); Carbon Dioxide 27 mmol/L (23-31); Chloride 98 mmol/L (98-107); Glucose 189 mg/dL (83-110); Potassium 3.5 mmol/L (3.5-5.1); Sodium 139 mmol/L (136-145)
[2020-12-01] MEDS: Furosemide 40 MG/4 ML VIAL SLOW IVP SCH ×2 (06:14→14:36)
[2020-12-01] MEDS: Levothyroxine Sodium 75 MCG TAB PER TUBE SCH (06:14)
[2020-12-01] MEDS ORDERED: Potassium Chloride 40 MEQ in Sodium Chloride 0.9% 250 ML 250 ML IV SCH (06:45)
--- NOTE | 2020-12-01 07:59 | PRG ---
DATE OF SERVICE: 12/01/2020 SUBJECTIVE: The patient was extubated yesterday. She is doing marginally well. OBJECTIVE: VITAL SIGNS: Temperature 98.1, pulse 91, blood pressure 147/46, O2 saturation 97%. 24-hour intake 554, output 2400. GENERAL: She looks comfortable in bed. HEENT: Unremarkable. NECK: No JVD. LUNGS: She has diminished breath sounds bilaterally and some sensory abdominal muscle use. ABDOMEN: Soft and nontender. CARDIAC: Irregularly irregular. ABDOMEN: Soft. EXTREMITIES: No edema. LABORATORY DATA: Sodium 139, potassium 3.5, chloride 98, CO2 of 27, BUN 40, creatinine 1.1, glucose 189. White blood cell count 8.8, hematocrit 28.3, and platelet count 153. X-ray shows bilateral effusions, possible atelectasis again on the left side. ASSESSMENT: 1. Status post respiratory failure requiring mechanical ventilation. 2. Advanced age and generalized failure to thrive. 3. Right ventricular failure. 4. Anemia, requiring blood transfusion. 5. Advanced age. PLAN: This is a difficult situation. She looks stable and I think it is worth trying some IPPB with nebs or EzPAP to see if we can open her back up. I think she is transferred to the floor, she would be a Code Green waiting to happen. I will speak with her family and see how they feel about DNR status. We will get speech therapy to see here. In the meantime, she will have to have everything IV. Job ID: [id number]
--- NOTE | 2020-12-01 08:06 | RAD ---
Chest one view HISTORY: Pneumonia. Follow-up. COMPARISON: 11/30/2020. FINDINGS: There is now complete opacification of left hemithorax with leftward shift of the mediastin um and obscuration of the cardiac margins. Pulmonary vascular congestion remains apparent in the right lung. Hazy opacity at the inferior aspect of the right hemithorax correlates with pleural fluid and is not significantly changed. IMPRESSION : Interval complete/near-complete atelectasis of the left lung. Persistent right pleural effusion.
[2020-12-01] MEDS ORDERED: Levothyroxine 100 MCG SDV IVP SCH (09:00)
[2020-12-01] MEDS ORDERED: Pantoprazole 40 MG VIAL IVP SCH (09:00)
[2020-12-01] MEDS: Amiodarone 200 MG TAB PO SCH (09:19)
[2020-12-01] MEDS: GUAIFENESIN SF SOLN 200 MG/10 ML UDCUP PER TUBE SCH (09:28)
[2020-12-01] MEDS: Insulin Regular 300 UNITS/3 ML VIAL SC PRN (12:35)
[2020-12-01 13:34] VITALS: TEMP 97.8
[2020-12-01 13:45] VITALS: BMI 28.4
[2020-12-01] MEDS: Micafungin 100 MG in Sodium Chloride 0.9% 100 ML IVPB SCH (14:46)
--- NOTE | 2020-12-01 15:20 | PDOC.HOSPP ---
- Subjective Encounter Date: 12/01/20 Encounter Time: 09:45 Subjective: has very weak cough and unable to clear resp secretions daughter at bedside - Objective Vital Signs & Weight: Vital Signs (12 hours) Temp Pulse Resp Pulse Ox 12/01/20 14:36 79 27 H 99 12/01/20 12:00 97.8 F 12/01/20 08:00 98.6 F 97 12/01/20 04:00 98.1 F Weight Admit Weight 149 lb Weight 162 lb 15.876 oz Most Recent Monitor Data Heart Rate from ECG 82 NIBP 137/44 NIBP BP-Mean 75 Respiration from ECG 22 SpO2 98 I&O: 11/30/20 12/01/20 12/02/20 06:59 06:59 06:59 Intake Total 1840.1 554 300 Output Total 1700 2400 580 Balance 140.1 -1846 -280 Result Diagrams: 12/01/20 04:02 12/01/20 04:02 Additional Labs: Accuchecks 12/01/20 11/30/20 11/30/20 06:16 20:38 17:42 POC Glucose 152 H 152 H 144 H 11/30/20 11:56 POC Glucose 171 H Hospitalist ROS - Medication Medications: Active Medications Generic Name Dose Route Start Last Admin Trade Name Freq PRN Reason Stop Dose Admin Albuterol/Ipratropium 3 ml 12/01/20 13:00 12/01/20 14:36 Ipratropium/Albuterol Sulfate 3 Ml Neb IPPB 3 ml [id number] [facility]KA Administration Amiodarone HCl 200 mg 11/28/20 21:00 12/01/20 09:19 Amiodarone 200 Mg Tab PO 200 mg BID [facility] Administration Furosemide 40 mg 11/29/20 14:00 12/01/20 14:36 Furosemide 40 Mg/4 Ml Vial SLOW IVP 40 mg 0600,1400 [facility] Administration Guaifenesin 600 mg 11/23/20 21:00 12/01/20 09:28 Guaifenesin Sf Soln 200 Mg/10 Ml Udcup PER TUBE 600 mg Q12HR [facility] Administration Micafungin Sodium 100 mg/ 100 mls @ 100 mls/hr 11/26/20 17:00 12/01/20 14:46 Sodium Chloride IVPB 100 mls Q24HR [facility] Administration Insulin Human Regular 0 units 11/23/20 14:35 12/01/20 12:35 Insulin Regular 300 Units/3 Ml Vial SC 2 unit .MILD SLIDING SCALE PRN Administration Mild Correctional Scale Levothyroxine Sodium 50 mcg 12/01/20 09:00 12/01/20 10:30 Levothyroxine 100 Mcg Sdv IVP Not Given DAILY [facility] Pantoprazole Sodium 40 mg 12/01/20 09:00 12/01/20 09:22 Pantoprazole 40 Mg Vial IVP 40 mg DAILY [facility] Administration Sodium Chloride 10 ml 11/23/20 09:00 12/01/20 12:32 Flush - Normal Saline 10 Ml Syringe IVF 10 ml Q12HR [facility] Administration Hospitalist Exam Vitals: Vital Signs (12 hours) Temp Pulse Resp Pulse Ox 12/01/20 14:36 79 27 H 99 12/01/20 12:00 97.8 F 12/01/20 08:00 98.6 F 97 12/01/20 04:00 98.1 F Weight Admit Weight 149 lb Weight 162 lb 15.876 oz Most Recent Monitor Data Heart Rate from ECG 82 NIBP 137/44 NIBP BP-Mean 75 Respiration from ECG 22 SpO2 98 General Appearance: awake alert Eye: PERRL, anicteric sclera ENT: no oropharyngeal lesions, moist mucosa Neck: supple, no JVD Heart: RRR, no murmur Respiratory: no wheezes, no rales Respiratory - other findings: decreased air entry left infrascapular area Gastrointestinal: soft, non-tender, non-distended, normal bowel sounds Extremities: no cyanosis, no edema Neurological: cranial nerve grossly intact, no focal deficits Hosp A/P (1) Acute respiratory failure with hypoxia Code(s): J96.01 - ACUTE RESPIRATORY FAILURE WITH HYPOXIA Status: Acute (2) Sepsis Code(s): A41.9 - SEPSIS, UNSPECIFIED ORGANISM Status: Resolved Qualifiers: Sepsis type: sepsis due to unspecified organism Sepsis acute organ dysfunction status: with acute organ dysfunction Severe sepsis acute organ dysfunction type: acute respiratory failure Acute respiratory failure type: with hypoxia Severe sepsis shock status: without septic shock Qualified Code(s): A41.9 - Sepsis, unspecified organism; R65.20 - Severe sepsis without septic shock; J96.01 - Acute respiratory failure with hypoxia (3) Acute exacerbation of CHF (congestive heart failure) Code(s): I50.9 - HEART FAILURE, UNSPECIFIED Status: Acute Qualifiers: Heart failure type: diastolic Qualified Code(s): I50.33 - Acute on chronic diastolic (congestive) heart failure (4) Atelectasis of left lung Code(s): J98.11 - ATELECTASIS Status: Acute (5) Afib Code(s): I48.91 - UNSPECIFIED ATRIAL FIBRILLATION Status: Chronic Qualifiers: Atrial fibrillation type: paroxysmal Qualified Code(s): I48.0 - Paroxysmal atrial fibrillation (6) DM type 2 (diabetes mellitus, type 2) Status: Chronic Qualifiers: Diabetes mellitus termite helper insulin use: without prison use (7) Pacemaker Code(s): Z95.0 - PRESENCE OF CARDIAC PACEMAKER Status: Chronic (8) Physical deconditioning Code(s): R53.81 - OTHER MALAISE Status: Acute (9) DEMETRA (acute kidney injury) Code(s): N17.9 - ACUTE KIDNEY FAILURE, UNSPECIFIED Status: Acute (10) Moderate protein malnutrition Code(s): E44.0 - MODERATE PROTEIN-CALORIE MALNUTRITION Status: Acute (11) UTI (urinary tract infection) Status: Acute Qualifiers: Urinary tract infection type: acute cystitis Hematuria presence: without hematuria Qualified Code(s): N30.00 - Acute cystitis without hematuria - Plan has very poor cough and inability to clear resp secretions, has developed recurrent left atelectasis again this am d/w daughter, wants her to be dnar and she will take her home with hospice ([facility]), may dc anytime if this is set up at home, CM is aware. got extubated 11/30. Hb is stable is on amiodarone oral for afib in sinus now micafungin for c.krusei in her urine on protonix, synthroid, nebs echo shows ef of 65%, rvsp is 46 hemostable d/w daughter ([phone]) at bedside, gave a full update, she has spoken to earlier 11/25, at bedside on 11/26, 11/28, 11/29, 11/30, 12/01. prognosis is poor, family is aware, is very deconditioned.
[2020-12-01] MEDS ORDERED: Morphine 2 MG/ML VIAL SLOW IVP SCH (16:15)
--- NOTE | 2020-12-01 16:38 | PDOC.CPN ---
- Subjective Date: 12/01/20 Time: 16:37 Interval history: Both her and her family have decided to transition to comfort care at home. - Objective Allergies/Adverse Reactions: Allergies Allergy/AdvReac Type Severity Reaction Status Date / Time metformin Allergy Verified 11/22/20 21:35 Visit Medications: Current Medications Albuterol/Ipratropium (Ipratropium/Albuterol Sulfate 3 Ml Neb) 3 ml IPPB Q6HR- RT [facility] Last Admin: 12/01/20 14:36 Dose: 3 ml Documented by: Amiodarone HCl (Amiodarone 200 Mg Tab) 200 mg PO BID [facility] Last Admin: 12/01/20 09:19 Dose: 200 mg Documented by: Bisacodyl (Bisacodyl 10 Mg Supp) 10 mg [place] DAILYPRN PRN PRN Reason: Constipation Dextrose/Water (Dextrose 50% Abboject 50 Ml Syringe) 25 gm SLOW IVP PRN PRN PRN Reason: Hypoglycemia Furosemide (Furosemide 40 Mg/4 Ml Vial) 40 mg SLOW IVP 0600,1400 [facility] Last Admin: 12/01/20 14:36 Dose: 40 mg Documented by: Glucagon (Glucagon 1 Mg/Ml Vial) 1 mg IM PRN PRN PRN Reason: Hypoglycemia Guaifenesin (Guaifenesin Sf Soln 200 Mg/10 Ml Udcup) 600 mg PER TUBE Q12HR [facility] Last Admin: 12/01/20 09:28 Dose: 600 mg Documented by: Dextrose/Water (D5w) 1,000 mls @ 0 mls/hr IV .Q0M PRN PRN Reason: Hypoglycemia Micafungin Sodium 100 mg/ (Sodium Chloride) 100 mls @ 100 mls/hr IVPB Q24HR [facility] Last Admin: 12/01/20 14:46 Dose: 100 mls Documented by: Insulin Human Regular (Insulin Regular 300 Units/3 Ml Vial) 0 units SC .MILD SLIDING SCALE PRN PRN Reason: Mild Correctional Scale Last Admin: 12/01/20 12:35 Dose: 2 unit Documented by: Levothyroxine Sodium (Levothyroxine 100 Mcg Sdv) 50 mcg IVP DAILY [facility] Last Admin: 12/01/20 10:30 Dose: Not Given Documented by: Magnesium Hydroxide (Milk Of Magnesia 30 Ml Udcup) 30 ml PO Q8H PRN PRN Reason: Constipation Miscellaneous Medication (Electrolyte Replacement Protocol) 0 each FS ASDIR PRN; Protocol PRN Reason: ELECTROLYTE REPLACEMENT Morphine Sulfate (Morphine 2 Mg/Ml Vial) 2 mg SLOW IVP NOW [facility] Stop: 12/01/20 18:15 Discontinue Previous Narcotic Pain Medications And Benzodiazepines 1 each FS .ONE [facility] Stop: 12/23/20 01:15 Pantoprazole Sodium (Pantoprazole 40 Mg Vial) 40 mg IVP DAILY [facility] Last Admin: 12/01/20 09:22 Dose: 40 mg Documented by: Sodium Chloride (Flush - Normal Saline 10 Ml Syringe) 10 ml IVF Q12HR [facility] Last Admin: 12/01/20 12:32 Dose: 10 ml Documented by: Sodium Chloride (Flush - Normal Saline 10 Ml Syringe) 10 ml IVF PRN PRN PRN Reason: Saline Flush Vital Signs & Weight: Vital Signs Temp Pulse Resp Pulse Ox 12/01/20 14:36 79 27 H 99 12/01/20 12:00 97.8 F 12/01/20 08:00 98.6 F 97 Admit Weight 149 lb Weight 162 lb 15.876 oz - Physical Exam General: alert & oriented x3 HEENT: mucus membranes moist Neck: supple neck Cardiac: irregularly regular Lungs: normal breath sounds Neuro: grossly intact Abdomen: active bowel sounds Extremities: no edema Skin: clear Musculoskeletal: no pain - Labs Result Diagrams: 12/01/20 04:02 12/01/20 04:02 Troponin/CKMB Troponin I 0.023 ng/mL (< 0.028) 11/22/20 19:41 - Telemetry Supraventricular conduction: atrial fibrillation - Assessment/Plan Assessment/Plan: 1. Afib, rate controlled. 2. COPD 3. Acute hypoxic respiratory insufficiency, improved. 4. Collapsed left lung, likely from mucous plug, resolved. 5. Severe RV dysfunction. 6. Anemia 7. Presence of a PPM. PLAN: - Ms. William and her family have decided to go home with hospice for comfort care. - I think in her situation this is appropriate given her weakened state. - Would continue same regimen except for stopping amiodarone. - Would also not restart Xarelto as she dropped her Hgb while inpatient and would be high risk for bleeding. - Will sign off. Please call with any questions.
--- NOTE | 2020-12-01 16:57 | PDOC.FMACP ---
Advance Care Planning - Problem (1) Palliative care encounter Status: Acute Code(s): Z51.5 - ENCOUNTER FOR PALLIATIVE CARE (2) Acute exacerbation of CHF (congestive heart failure) Status: Acute Code(s): I50.9 - HEART FAILURE, UNSPECIFIED Qualifiers: Heart failure type: diastolic Qualified Code(s): I50.33 - Acute on chronic diastolic (congestive) heart failure (3) Acute respiratory failure with hypoxia Status: Acute Code(s): J96.01 - ACUTE RESPIRATORY FAILURE WITH HYPOXIA (4) Moderate protein malnutrition Status: Acute Code(s): E44.0 - MODERATE PROTEIN-CALORIE MALNUTRITION - Note Participants: patient, family, palliative care Summary: Discussed Advanced Care Planning iwth patient and primarily daughter Rosetta. The diagnosis, prognosis and goals of care were discussed. Appropriate forms and documentation to accomplish the goals of care were discussed. All questions were answered. Family has elected to transition home with hospice to seek comfort in the home setting and forgo aggressive therapies. Daughter had questions in relation to decision and completion of OOHDNAR Reviewed disease trajectory and patient wish to return to the home setting. Discussed impact of CPR in the out of hospital setting, and revisited that she is currently a DNAR. Daughter tearful, confirms desire to complete OOHDNAR. Ms Nataliia Friedman is comfortable, no questions. Time Spent (mins): 30
--- NOTE | 2020-12-01 18:58 | DIS ---
DATE OF ADMISSION: 11/22/2020 DATE OF DISCHARGE: 12/01/2020 DISCHARGE DISPOSITION: Home hospice. PRIMARY DISCHARGE DIAGNOSES: 1. Acute respiratory failure with hypoxia. 2. Left lung recurrent atelectasis. 3. Severe deconditioning. 4. Sepsis. 5. Urinary tract infection. 6. Paroxysmal atrial fibrillation with RVR. 7. Diabetes mellitus type 2. 8. Pacemaker. 9. Acute kidney injury, resolved. 10. Moderate protein malnutrition. PROCEDURES DONE DURING HOSPITALIZATION: Chest x-ray done on the day of admission showed bilateral pleural effusion, left lung atelectasis. Echo with 2D Doppler showed EF of 65% to 70%, mild concentric LVH, dilated RV with reduced RV systolic function. RV systolic pressure is estimated at 46 mmHg. Moderate-sized pericardial effusion without tamponade. Abdominal pelvic CAT scan without contrast showed distended calcified gallbladder with one large peripherally calcified gallstone in the gallbladder fundus, otherwise no acute intraabdominal process. There is diffuse anasarca seen. Chest x-ray done this morning showed near-complete atelectasis of the left lung. The patient had hemoglobin of 9 g on the day of discharge with hematocrit of 28, platelet count 153. BUN 40, creatinine 1.1, albumin 2.3. BNP 1241. COVID-19 PCR was not detected on 11/22/2020. Urine culture grew presumptive Nataly krusei. DISCHARGE MEDICATION: 1. Lasix 20 mg daily. 2. Levothyroxine 75 mcg daily. 3. Lidoderm 5% transdermal patch daily. 4. Lipitor 40 mg daily. 5. Melatonin 5 mg p.o. at bedtime. 6. MiraLAX 17 g daily. 7. Potassium chloride 10 mEq p.o. daily. 8. Xarelto 15 mg daily. 9. Protonix 40 mg daily. 10. Amiodarone 200 mg daily. 11. DuoNeb q.6 hourly p.r.n. 12. Mucinex 600 mg p.o. twice daily for 10 days. ALLERGIES: TO METFORMIN. INPATIENT CONSULT: Dr. Chirinos for Pulmonology and Dr. Markham for Cardiology. BRIEF COURSE DURING HOSPITALIZATION: The patient initially got admitted on the with complaints of shortness of breath. On arrival, the patient was found to have had left lung atelectasis with volume overload and BNP of 1241. She was initially on non-rebreather and later had to be intubated. The patient was admitted to ICU. She has had left lung atelectasis. The patient had bronchoscopy done with clearing of the mucus plug. She has had consultations with Dr. Chirinos for Pulmonology, Dr. Markham for Cardiology. The patient got successfully extubated on the . Post this, the patient has had very weak cough and is severely deconditioned physically. All through her hospitalization, the patient's daughter was given complete updates. The patient developed recurrent left lung atelectasis this morning. This prompted Dr. Chirinos and myself to talk to the patient's family/daughter with regarding the patient's poor physical condition and possible re-intubation if this were to get worse. Daughter was also the power of compliance attorney for patient, made her do not attempt to resuscitate and later wanted to take her home with hospice. This will be arranged by Case Management and once all the home equipment is set up, she will be discharged from the hospital. Her overall prognosis is poor. Job ID: [id number] [facility]
== END 2020-12-01 18:20 | disposition hospice, home (50) | DRG 870 ==
LOC: ERS 19:18 → CCU 20:23
PROVIDERS: ADMIT Student in an Organized Health Care Education/Training Program; ATTEND Internal Medicine
PROC: 0D9670Z Drainage of Stomach with Drainage Device, Via Natural or Artificial Opening (ICD-10-PCS; principal; 2020-11-22)
PROC: 5A1955Z Respiratory Ventilation, Greater than 96 Consecutive Hours (ICD-10-PCS; 2020-11-22)
PROC: 0BH17EZ Insertion of Endotracheal Airway into Trachea, Via Natural or Artificial Opening (ICD-10-PCS; 2020-11-22)
PROC: 3E033XZ Introduction of Vasopressor into Peripheral Vein, Percutaneous Approach (ICD-10-PCS; 2020-11-22)
PROC: 06HY33Z Insertion of Infusion Device into Lower Vein, Percutaneous Approach (ICD-10-PCS; 2020-11-23)
PROC: 0BJ08ZZ Inspection of Tracheobronchial Tree, Via Natural or Artificial Opening Endoscopic (ICD-10-PCS; 2020-11-23)
PROC: 30233N1 Transfusion of Nonautologous Red Blood Cells into Peripheral Vein, Percutaneous Approach (ICD-10-PCS; 2020-11-27)
DX: A41.9 Sepsis, unspecified organism (principal); J96.21 Acute and chronic respiratory failure with hypoxia; I50.33 Acute on chronic diastolic (congestive) heart failure; G93.41 Metabolic encephalopathy; E87.1 Hypo-osmolality and hyponatremia; N17.9 Acute kidney failure, unspecified; J98.11 Atelectasis; E87.2 Acidosis; I13.0 Hypertensive heart and chronic kidney disease with heart failure and stage 1 through stage 4 chronic kidney disease, or unspecified chronic kidney disease; E44.0 Moderate protein-calorie malnutrition; N30.00 Acute cystitis without hematuria; Z51.5 Encounter for palliative care; Z66 Do not resuscitate; E83.39 Other disorders of phosphorus metabolism; R94.5 Abnormal results of liver function studies; E87.6 Hypokalemia; D69.6 Thrombocytopenia, unspecified; D50.0 Iron deficiency anemia secondary to blood loss (chronic); E78.5 Hyperlipidemia, unspecified; E87.5 Hyperkalemia; I49.5 Sick sinus syndrome; Z20.822 Contact with and (suspected) exposure to COVID-19; E11.22 Type 2 diabetes mellitus with diabetic chronic kidney disease; N18.30 Chronic kidney disease, stage 3 unspecified; R65.20 Severe sepsis without septic shock; R62.7 Adult failure to thrive; I50.810 Right heart failure, unspecified; Z68.28 Body mass index [BMI] 28.0-28.9, adult; Z79.899 Other long term (current) drug therapy; Z88.8 Allergy status to other drugs, medicaments and biological substances; Z79.51 Long term (current) use of inhaled steroids; Z79.890 Hormone replacement therapy; Z79.01 Long term (current) use of anticoagulants; Z78.1 Physical restraint status; Z95.0 Presence of cardiac pacemaker; I48.0 Paroxysmal atrial fibrillation
CPT/HCPCS: 31500; 36415; 36416; 36430; 36600; 51702; 71045; 71270; 74018; 74176; 80048; 80053; 80076; 80202; 81003; 81015; 82533; 82805; 83605; 83735; 83880; 84100; 84443; 84484; 85025; 86850; 86870; 86880; 86900; 86901; 86922; 87040; 87077; 87086; 87635; 93005; 93306; 94002; 94003; 94640; 96365; 96375; C9113; C9803; J0282; J0692; J1650; J1815; J1940; J1956; J2060; J2248; J2270; J2543; J2704; J3010; J3370; J3475; J3480; J3490; J7050; J7070; J7620; P9016; P9045; Q9967; U0002; U0003; U0005